=== PATIENT | male | born 1960 | race Caucasian/White ===

== ENCOUNTER 2021-06-05 13:40 | Outpatient (RCR) | payer OTHER, SELFPAY ==
--- NOTE | 2021-04-27 14:34 | PCPTNOTE ---
Patient did not show up for his initial evaluation today. Therapist called the patient to follow up and he rescheduled his initial visit.
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
--- NOTE | 2021-06-09 11:11 | PCPTNOTE ---
Patient did not show up for scheduled appointment this date. Called and spoke with Pt about missed appointment. Pt apologized for not calling, he has a lot going on at home with helping care for his mother, who had a procedure to move her port. Reassured Pt and spoke with him about next appointment and rescheduling. Pt opted to not reschedule due to having so much going on, and will be here for next appointment on 06/17/21 @ 15:15. This is Pt's first N/S.
--- NOTE | 2021-06-17 15:39 | PCPTNOTE ---
Patient did not show up for scheduled appointment this date. Called and spoke with Pt. Pt stated Tuesday, Tuesday, and Tuesday's do not work due to having to take my mo to dialysis those days. I need to change next weeks appointment as well. Changed appointment Saturday 06/24 @15:15 to Tuesday06/23/21 @14:45. This is Pt's second N/S.
--- NOTE | 2021-06-23 16:17 | PCPTNOTE ---
Patient did not show up for scheduled appointment this date. Called patient, & left a message for him to call us back.
--- NOTE | 2021-07-01 14:48 | PCPTNOTE ---
Attending Provider: Ivon Thacker, SCRUBBER SYSTEM ATTENDANT-C Patient:Jann Albarran Date of :1960 Jann has not shown up for 4 consecutive visits. Patient has not returned for any further treatments since 06/05/2021, therefore he will be discharged at this time. Patient?s initial visit was on 06/05/2021 13:45 and he had a total of 1 visits. Thank you for referring this patient to [facility]. Please review, sign, date and return this discharge summary YENI. I have been updated about the patient's current status and I agree with discharge from the above service at this time. Referring Physician Date
== END 2021-07-02 08:12 | disposition home or self-care (01) ==
LOC: ANHPT 13:40
PROVIDERS: PCP Internal Medicine; Visit Provider Nurse Practitioner
DX: M54.2 Cervicalgia (principal)
CPT/HCPCS: 97112; 97161

== ENCOUNTER 2021-07-28 14:49 | Outpatient (CLI) | payer OTHER, SELFPAY ==
--- NOTE | ~2021-07-28 | CT_ITS ---
EXAMINATION: CT cervical spine wo con DATE: 07/28/2021 15:09 INDICATION: Right-sided neck pain. TECHNIQUE: Computed tomography (CT) of the cervical spine was performed without intravenous contrast. Automated exposure control and iterative reconstruction technique were employed. The dose-length pro duct was 491.91 mGy-cm. COMPARISON: None FINDINGS: There is 5 degrees levocurvature of lumbar spine. There is 2 mm anterolisthesis of C2 on C3 and 2 mm retrolisthesis of C3 on C4 and C4 on C5. There is kyphosis of upper cervical spine. Vertebr al body heights are normal. There is severely decreased disc height at C3-C4 and C4-C5, mildly decrea sed disc height at C5-C6, and severely decreased disc height at C6-C7 with endplate remodeling. The f ollowing disc levels are specifically discussed: C2-C3: There is mild bilateral uncovertebral joint osteoarthritis. There is severe right and mild lef t facet joint osteoarthritis. There is mild bilateral neural foraminal stenosis. There is mild centra l canal stenosis. C3-C4: There is severe bilateral uncovertebral joint osteoarthritis. There is moderate right and mild left facet joint osteoarthritis. There is moderate bilateral neural foraminal stenosis. There is mil d central canal stenosis. C4-C5: There is severe bilateral uncovertebral joint osteoarthritis. There is moderate right and mild left facet joint osteoarthritis. There is moderate bilateral neural foraminal stenosis. There is mil d central canal stenosis. C5-C6: There is mild bilateral uncovertebral joint osteoarthritis. There is mild bilateral facet join t osteoarthritis. There is no neural foraminal stenosis. There is mild central canal stenosis. C6-C7: There is severe bilateral uncovertebral joint osteoarthritis. There is moderate right and mild left facet joint osteoarthritis. There is mild bilateral neural foraminal stenosis. There is mild ce ntral canal stenosis. C7-T1: There is severe bilateral uncovertebral joint osteoarthritis. There is mild bilateral facet emory int osteoarthritis. There is mild right and moderate left neural foraminal stenosis. There is no cent ral canal stenosis. IMPRESSION: 1. Severe cervical spondylosis. Reviewed, dictated and finalized at location B.
== END 2021-07-28 14:50 | disposition home or self-care (01) ==
LOC: ANHIMG 14:53
PROVIDERS: PCP Internal Medicine; Visit Provider Internal Medicine
DX: R51.9 Headache, unspecified (principal); M47.813 Spondylosis without myelopathy or radiculopathy, cervicothoracic region; M48.03 Spinal stenosis, cervicothoracic region
CPT/HCPCS: 72125

== ENCOUNTER 2022-10-19 09:57 | Outpatient (CLI) | payer OTHER, SELFPAY ==
--- NOTE | ~2022-10-19 | US_ITS ---
Limited Abdominal Sonogram: Real-time sonographic imaging of the right upper quadrant was performed. Clinical History: Abnormal blood chemistry findings Findings: The liver appears normal with no evidence of mass lesion or bile duct dilatation. Main por carlos vein demonstrates normal direction of flow. The gallbladder is partially distended, with multiple probable small gallbladder wall polyps. The common bile duct measures 3 mm. The visualized pancreas , aorta, and IVC are unremarkable. Impression: Multiple probable small gallbladder wall polyps. Reviewed, dictated and finalized at location . Impression: Multiple probable small gallbladder wall polyps.
== END 2022-10-19 09:58 | disposition home or self-care (01) ==
PROVIDERS: PCP Family Medicine; Visit Provider Family Medicine
DX: R79.89 Other specified abnormal findings of blood chemistry (principal); K70.9 Alcoholic liver disease, unspecified
CPT/HCPCS: 76705

== ENCOUNTER 2023-05-06 19:25 | Inpatient (IN) | payer OTHER, SELFPAY ==
--- NOTE | ~2023-05-06 | CT_ITS ---
EXAMINATION: CT chest abdomen pelvis w con DATE: 05/06/2023 20:51 INDICATION: Right pleural effusion. TECHNIQUE: Computed tomography (CT) of the chest, abdomen, and pelvis was performed with 100 mL Omnip aque 350 intravenous contrast. Automated exposure control and iterative reconstruction technique were employed. The dose-length product was 620.70 mGy-cm. COMPARISON: CT abdomen 11/06/2006 FINDINGS: CHEST CT: There is a moderate-sized right pleural effusion. Calcified right lung nodules and calcified right hi lar lymph nodes are consistent with old granulomatous disease. There is passive atelectasis involving right middle lobe and right lower lobe. There is mild atelectasis on the left. The heart size is nor mal. There are coronary artery calcifications. No pericardial effusion. There is mild thoracic spondy losis. There is a chronic compression fracture of T3. ABDOMEN/PELVIS CT: There is elevation of right hemidiaphragm. The liver, gallbladder, spleen, pancreas, adrenal glands, and kidneys are normal. There are inguinal hernias containing fat, left worse than right. There are n o dilated loops of bowel. The appendix is normal. There are no pathologically enlarged lymph nodes. T here is no free intraperitoneal fluid. There is mild lumbar spondylosis. IMPRESSION: 1. Moderate-sized right pleural effusion. 2. Bilateral inguinal hernias containing fat. Reviewed, dictated and finalized at location E. TIATOR SALES
--- NOTE | ~2023-05-06 | XR_ITS ---
EXAMINATION: XR chest 1V portable DATE: 05/06/2023 20:00 INDICATION: Chest pain. TECHNIQUE: A single frontal view of the chest was obtained. COMPARISON: Chest 2 views 12/03/2010, chest CT 11/06/2006 FINDINGS: There is elevation of right hemidiaphragm. There is a small right pleural effusion. There a re airspace opacities at right lung base. No pneumothorax. The heart size is normal. There are old he aled left rib fractures. IMPRESSION: 1. Small right pleural effusion. 2. Airspace opacities at right lung base, consistent with atelectasis/scarring versus pneumonia. Reviewed, dictated and finalized at location E. CE MANAGER
--- NOTE | ~2023-05-06 | XR_ITS ---
. EXAMINATION: [id number] DATE: 05/09/2023 12:33 INDICATION: Right pleural effusion status post thoracentesis. TECHNIQUE: A single frontal view of the chest was obtained. COMPARISON: Chest single view 05/06/2023, chest 2 views 12/03/2010 FINDINGS: There is elevation of right hemidiaphragm. There is a moderate-sized loculated right pleura l effusion. There are airspace opacities at right lung base. No pneumothorax. The heart size is sanjay l. IMPRESSION: 1. Moderate-sized loculated right pleural effusion. 2. Airspace opacities at right lung base, consistent with atelectasis versus pneumonia. Reviewed, dictated and finalized at location A. CUTE NURSE IMPRESSION: 1. Moderate-sized loculated right pleural effusion. 2. Airspace opacities at right lung base, consistent with atelectasis versus pn eumonia.
--- NOTE | ~2023-05-06 | US_ITS ---
EXAMINATION: US thoracentesis DATE: 05/09/2023 13:06 INDICATION: pleural effusion TECHNIQUE: The procedure and its risks, benefits, and alternatives were discussed with the patient. P otential risks discussed included bleeding, infection, and pneumothorax. The patient understood the r isks and agreed to proceed. The skin was prepped and draped in sterile fashion. 1% lidocaine was used for local anesthesia. Under ultrasound guidance, a 5 Fr catheter with trochar was advanced into the right pleural effusion. Fluid was aspirated. The catheter was removed, and a dressing was applied. Th ere were no immediate complications. FINDINGS: Ultrasound images demonstrate a right pleural effusion and the catheter within the fluid. IMPRESSION: 1. Successful ultrasound-guided thoracentesis yielding 550 mL of yellow fluid. Reviewed, dictated and finalized at location A. OR MANUFACTURING ENGINEER
--- NOTE | ~2023-05-06 | US_ITS ---
EXAMINATION: US abdomen complete DATE: 05/09/2023 13:03 INDICATION: Cirrhosis of the liver. TECHNIQUE: Multiple grayscale and Doppler ultrasound images of the abdomen were obtained. COMPARISON: CT abdomen and pelvis 05/06/2023 FINDINGS: The visualized portions of the head and body of the pancreas are normal. The liver demonstr ates coarsened echotexture and surface nodularity, consistent with cirrhosis. There is normal flow in main portal vein. The kidneys are normal in size. The spleen is normal in size. The gallbladder is n ormal in size. No gallstones or gallbladder wall thickening. There is no sonographic Galvin sign. The common duct is normal and measures 5 mm. IMPRESSION: 1. Cirrhosis of the liver. Reviewed, dictated and finalized at location A. N INSPECTOR IMPRESSION: 1. Cirrhosis of the liver.
--- NOTE | 2023-05-06 19:26 | ECG_ITS ---
Measurements Intervals [place] Rate: 130 P: 49 TX: 154 QRS: -52 QRSD: 93 T: 30 QT: 301 QTc: 444 Interpretive Statements SINUS TACHYCARDIA PATTERN CONSISTENT WITH PULMONARY DISEASE LEFT ANTERIOR FASCICULAR BLOCK [QRS AXIS <= -45, QR IN I, RS IN II] BORDERLINE ECG NO PREVIOUS ECG AVAILABLE FOR COMPARISON Electronically Signed On 05-07-2023 14:38:00 TRACK BROOM OPERATOR by Al Knutson M.D.
[2023-05-06 19:31] VITALS: BP 124/76; PULSE 132; RESP 16; TEMP 36.6; O2SAT 92
[2023-05-06 19:51] VITALS: O2SAT 94
[2023-05-06 19:57] VITALS: O2SAT 94
[2023-05-06 19:58] LABS: Basophils Absolute Auto 0.1 K/mm3 (0.0-0.1); Basophils Percent Auto 0.3 % (0.2-1.2); Hematocrit 42.9 % (42.0-52.0); Hemoglobin 14.9 g/dL (14.0-18.0); Immature Granulocyte Absolute 0.63 K/mm3 (0.00-0.031); Immature Granulocyte Percent A 1.5 % (0-0.5); Lymphocytes Absolute Auto 1.96 K/mm3 (0.9-3.2); Lymphocytes Percent Auto 4.6 % (18.3-44.2); Mean Corpuscular HGB Conc 34.7 g/dl (32-36); Mean Corpuscular Hemoglobin 32.4 pg (26-34); Mean Corpuscular Volume 93.3 fl (80-100); Mean Platelet Volume 9.9 fl (7.4-10.4); Monocytes Absolute Auto 2.8 K/mm3 (0.1-0.6); Monocytes Percent Auto 6.5 % (2.6-8.5); Neutrophils Percent Auto 87.1 % (45.5-73.1); Platelet Count Result 253 k/mm3 (150-375); Red Cell Distribution Width 12.6 % (11.5-14.5); White Blood Count 42.5 K/mm3 (4.5-10.0)
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
[2023-05-06 20:07] LABS: Alanine Aminotransferase 72 U/L (6-50); Albumin Level 3.7 g/dL (3.5-5.1); Alkaline Phosphatase 104 U/L (38-126); Anion Gap 7 mmol/L (8-16); Aspartate Amino Transferase 66 U/L (17-59); Bilirubin,Total 2.6 mg/dL (0.2-1.3); Blood Urea Nitrogen 18 mg/dL (9-20); Calcium 9.1 mg/dL (8.4-10.2); Carbon Dioxide 25 mmol/L (22-30); Chloride 96 mmol/L (98-107); Estimated CRCL calculation 95 ml/min; Estimated Glomerular Filt Rate > 60; Glucose 235 mg/dL (65-110); Lipase 27 U/L (23-300); Potassium 4.3 mmol/L (3.4-5.0); Sodium 128 mmol/L (137-145)
[2023-05-06 20:10] LABS: INR 1.3; Prothrombin Time 16.6 Seconds (11.1-14.7)
[2023-05-06 20:11] LABS: Partial Thromboplastin Time 31.8 SECONDS (22.3-36.8)
[2023-05-06 20:19] LABS: Troponin I < 0.012 ng/mL (0.000-0.034)
[2023-05-06] MEDS: HYDROmorphone HCL INJ (*CRX) 1 MG/ML SYR 0.5 MG IV PUSH (20:24)
[2023-05-06] MEDS: ONDANSETRON INJ 4 MG/2 ML VIAL IV PUSH (20:24)
--- NOTE | 2023-05-06 20:38 | PC.NURSE ---
EDP Dr. Ogden verbalized pt does not need ordered dose of ASA.
[2023-05-06 20:47] LABS: CRP 5.9 mg/dL (<1.0)
[2023-05-06 20:56] LABS: Lactic Acid Reflex 2.3 mmol/L (0.7-2.0)
[2023-05-06 21:01] LABS: Alveolar/Arterial O2 Gradient 53.1 mmHg; Fractional Inspired Oxygen 21 %; HCO3 ABG 25.1 mEq/l (22.0-26.0); Oxygen Content ABG 18.4 %vol (16.0-22.0); Oxygen Saturation ABG 90.6 % (95.0-100.0); Oxyhemoglobin 87.9 % THb (90.0-100.0); PO2 ABG 54.7 mmHg (80.0-100.0); Total Hemoglobin 14.9 g/dL (12.0-18.0); pH ABG 7.474 (7.350-7.450)
[2023-05-06 21:02] LABS: Modified Allen's Test Pass; Site Drawn RIGHT RADIAL
[2023-05-06 21:15] VITALS: BP 110/91; PULSE 132; RESP 26; O2SAT 93
[2023-05-06 21:22] LABS: Influenza A QL RT-PCR Negative (Negative); Influenza B QL RT-PCR Negative (Negative); RSV RNA, RT-PCR Negative (Negative); SARS-CoV-2 RNA PCR Negative (Negative)
[2023-05-06] MEDS: AZITHROMYCIN 500 MG/NS 250 ML 500 MG/250 ML BAG 250 MG IVPB (21:53)
[2023-05-06 21:55] VITALS: BP 122/83; PULSE 127; RESP 23; O2SAT 92
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
[2023-05-06 23:06] LABS: Troponin I 0.016 ng/mL (0.000-0.034)
[2023-05-06] MEDS: SODIUM CHLORIDE 0.9% IV 1,000 ML 150 ML IV CONT (23:14)
[2023-05-06] MEDS: HYDROmorphone HCL INJ (*CRX) 1 MG/ML SYR IV PUSH (23:15)
--- NOTE | 2023-05-06 23:28 | PC.NURSE ---
Pt moved from stretcher to recliner at this time. Pt has remote within reach.
[2023-05-06 23:42] LABS: Reflex Lactic Acid Yes or No Add Lactic
[2023-05-06 23:59] VITALS: BP 112/67; PULSE 114; RESP 16; O2SAT 96
[2023-05-07] VITALS (21 sets, daily range): BP systolic 101–128; BP diastolic 51–78; PULSE 92–118; RESP 18–27; TEMP 37–37.2; O2SAT 88–98; BMI 25.9
[2023-05-07 01:26] LABS: Lactic Acid 1.5 mmol/L (0.7-2.0)
[2023-05-07 01:39] LABS: Troponin I < 0.012 ng/mL (0.000-0.034)
[2023-05-07] MEDS: HYDROmorphone HCL INJ (*CRX) 1 MG/ML SYR IV PUSH ×2 (04:29→10:48)
--- NOTE | 2023-05-07 04:51 | PC.NURSE ---
Pt placed on 2L NC by this RN due to desats while sleeping. Pt tolerating 2L well - satting 97%.
[2023-05-07] MEDS: SODIUM CHLORIDE 0.9% IV 1,000 ML 150 ML IV CONT ×2 (05:54→14:30)
--- NOTE | 2023-05-07 07:10 | PC.NURSE ---
Report given to CHUN Medrano at this time.
--- NOTE | 2023-05-07 08:02 | ADMGEN ---
This patient, Jann Albarran, was admitted to Virtual Bed 3rd Floor-1. Patient/family oriented to hospital policies and general routines including ID bracelet, bed and alarms, visiting hours, pain management, procedures, bathroom and other care routines, personal items, smoking policy, room service/diet, and visiting hours. Information on how to activate the Rapid Response Team has been discussed. Patient/Family are encouraged to report perceived risks to care and to ask questions if they do not understand what they are told or what they should do. patient in ED, will be transferred to floor soon.
[2023-05-07 16:40] LABS: Basophils Absolute Auto 0.1 K/mm3 (0.0-0.1); Basophils Percent Auto 0.3 % (0.2-1.2); Hematocrit 38.8 % (42.0-52.0); Hemoglobin 13.1 g/dL (14.0-18.0); Immature Granulocyte Percent A 2.4 % (0-0.5); Lymphocytes Absolute Auto 2.71 K/mm3 (0.9-3.2); Lymphocytes Percent Auto 7.1 % (18.3-44.2); Mean Corpuscular HGB Conc 33.8 g/dl (32-36); Mean Corpuscular Hemoglobin 32.8 pg (26-34); Mean Platelet Volume 10.9 fl (7.4-10.4); Monocytes Absolute Auto 2.8 K/mm3 (0.1-0.6); Monocytes Percent Auto 7.4 % (2.6-8.5); Neutrophils Absolute Auto 31.4 K/mm3 (1.3-6.7); Neutrophils Percent Auto 82.8 % (45.5-73.1); Platelet Count Result 163 k/mm3 (150-375); Red Cell Distribution Width 12.6 % (11.5-14.5); White Blood Count 37.9 K/mm3 (4.5-10.0)
[2023-05-07] MEDS: HYDROcodone/acetaminophen (*CRX) 10-325 MG TABLET 1 TAB PO (16:44)
[2023-05-07 16:50] LABS: Alanine Aminotransferase 45 U/L (6-50); Albumin Level 3.1 g/dL (3.5-5.1); Alkaline Phosphatase 93 U/L (38-126); Anion Gap 5 mmol/L (8-16); Aspartate Amino Transferase 36 U/L (17-59); Bilirubin,Total 1.6 mg/dL (0.2-1.3); Blood Urea Nitrogen 18 mg/dL (9-20); Calcium 8.5 mg/dL (8.4-10.2); Carbon Dioxide 28 mmol/L (22-30); Chloride 96 mmol/L (98-107); Estimated CRCL calculation 95 ml/min; Estimated Glomerular Filt Rate > 60; Glucose 145 mg/dL (65-110); Sodium 129 mmol/L (137-145)
--- NOTE | 2023-05-07 17:07 | PM.IMPN ---
Progress Note: A&P Assessment and Plan (1) Hyponatremia: Code(s): E87.1 - Hypo-osmolality and hyponatremia Status: Acute (2) Alcohol dependence: Code(s): F10.20 - Alcohol dependence, uncomplicated Status: Acute (3) Marijuana abuse: Code(s): F12.10 - Cannabis abuse, uncomplicated Status: Acute (4) Pleural effusion on right: Code(s): J90 - Pleural effusion, not elsewhere classified Status: Acute (5) Pneumonia: Code(s): J18.9 - Pneumonia, unspecified organism Status: Acute (6) Acute hypoxic respiratory failure: Code(s): J96.01 - Acute respiratory failure with hypoxia Status: Acute (7) Sepsis: Code(s): A41.9 - Sepsis, unspecified organism Status: Acute (8) Elevated LFTs: Code(s): R79.89 - Other specified abnormal findings of blood chemistry Status: Acute (9) Chronic pain: Code(s): G89.29 - Other chronic pain Status: Acute (10) Continuous use of opioids: Code(s): F11.90 - Opioid use, unspecified, uncomplicated Status: Acute Plan This is a pleasant 62-year-old male with a history of alcohol abuse, marijuana abuse, alcoholic liver disease chronic pain with chronic narcotic use who presents with shortness of breath and right-sided pleuritic pain. The patient has developed a cough and right-sided chest pain for about a week. Day he was doing some heavy yard work and after throwing a log he had worsened right-sided pain. Complains of yellow sputum productions as well. Denies fever or chills denies nausea vomiting abdominal pain or diarrhea. Denies any weight loss. And [place] [facility] he was found to have leukocytosis hyponatremia lactic acidosis hyperglycemia elevated LFTs and CRP along with a moderate-size right pleural effusion. He had sinus tachycardia and was placed on 2 L of nasal cannula. #Acute hypoxic respiratory failure -wean down to 1 L nasal cannula. Treat pleural effusion. #Right-sided moderate pleural effusion -troponin negative x3. Does not appear to be in heart failure. -pleuritic chest pain likely due to pleural effusion and possible underlying pneumonia. -per nursing thoracentesis can be done on Tuesday. Studies have been ordered. Differential is wide including empyema, malignant, hepatic hydrothorax. #pneumonia -unable to specify at this time. Ceftriaxone and azithromycin changed to meropenem and vancomycin on 05/07 to cover empirically given he is an alcohol drinker -sputum culture pending. Legionella and pneumococcal urinary antigen ordered #Sepsis -white count 42 and CRP 5.9 on admission. Tachycardia and hypoxia. Continue to trend. -check UA. Blood cultures and sputum culture pending. Pleural fluid culture pending #Hyperglycemia -check hemoglobin A1c -Accu-Cheks and sliding scale. Hypoglycemia protocol #Hyponatremia -the be due to beer potomania, or SIADH. -treat lung pathology. -continue to monitor repeat BMP at midnight -check urine osmolality and sodium #Marijuana abuse -provided counseling #Alcoholic liver disease -provided extensive counseling. The patient understood and agreed he will quit alcohol. Consulted care coordination to provide resources. -his transaminitis fell due to alcoholic liver disease. PCP Dr. Guardado. Abdominal ultrasound performed 10/19/2022 demonstrating probable small gallbladder wall polyps. Will repeat another given he may have hepatic hydrothorax. If ascites is identified starting diuretics would be useful. -trend liver enzymes -continue thiamine and folate. CIWA protocol as needed. #Chronic pain with chronic narcotic use -patient reports had multiple surgeries and has chronic pain. Continue home gabapentin and [place]. Discontinued IV narcotics. FEN: Saline lock IV. Regular diet GI prophylaxis: Not indicated DVT prophylaxis: Lovenox. Hold Tuesday morning. Lines: Peripheral IV Code Status: Full code Dispo: Stable. Continue tel
[2023-05-07 17:30] LABS: Procalcitonin 1.2 ng/mL
[2023-05-07] MEDS: MEROPENEM 1 GM/NS 100 ML 1 GM/100 ML BAG IVPB (17:48)
[2023-05-07] MEDS: VANCOMYCIN 1,250 MG/NS 250 ML 1,250 MG/250 ML BAG 166.67 MG IVPB (18:27)
[2023-05-07 19:21] LABS: MRSA (PCR) NOT DETECTED (NOT DETECTE)
[2023-05-07] MEDS: VANCOMYCIN 1,000 MG/NS 250 ML 1,000 MG/250 ML BAG 250 MG IVPB (20:26)
[2023-05-07] MEDS: GABAPENTIN 300 MG CAPSULE PO (20:26)
[2023-05-07 20:47] LABS: Sodium Urine Random 18 meq/L
[2023-05-07 20:48] LABS: Bacteria Urine None Seen /hpf; Non Pathogenic Casts 0-2; RBC Urine 0-2 /hpf (0-2); Squamous Epithelial Cell Urine Occasional /hpf (Few); WBC Urine 0-5 /hpf (0-3)
[2023-05-07 21:10] LABS: Appearance Urine Clear (Clear); Bilirubin Urine 1+ (Negative); Blood Urine Negative (Negative); Glucose Urine UA Negative (Negative); Ketones Urine Negative (Negative); Leukocyte Esterase Ur Trace LEU/UL (NEGATIVE); Nitrate Urine Negative (Negative); Protein Urine Negative (Negative); Specific Grav Ur 1.024 (1.001-1.035); pH Urine 5.5 (5.0-9.0)
[2023-05-07 21:11] LABS: Add Urine Microscopic? YES; Color Urine Dark Yellow (Yellow)
[2023-05-07 21:21] LABS: Glucose Point of Care 140 mg/dl (65-105)
[2023-05-08] VITALS (10 sets, daily range): BP systolic 116–171; BP diastolic 68–83; PULSE 94–150; RESP 20–22; TEMP 36.9–37.7; O2SAT 91–96
[2023-05-08 00:17] LABS: Anion Gap 5 mmol/L (8-16); Blood Urea Nitrogen 17 mg/dL (9-20); Calcium 8.5 mg/dL (8.4-10.2); Carbon Dioxide 29 mmol/L (22-30); Chloride 95 mmol/L (98-107); Estimated CRCL calculation 109 ml/min; Estimated Glomerular Filt Rate > 60; Glucose 139 mg/dL (65-110); Potassium 3.8 mmol/L (3.4-5.0); Sodium 129 mmol/L (137-145)
[2023-05-08] MEDS: HYDROcodone/acetaminophen (*CRX) 10-325 MG TABLET 1 TAB PO ×3 (01:48→21:36)
[2023-05-08] MEDS: MEROPENEM 1 GM/NS 100 ML 1 GM/100 ML BAG IVPB ×3 (01:48→17:10)
[2023-05-08] MEDS: VANCOMYCIN 1,500 MG/NS 500 ML 1,500 MG/500 ML BAG 250 MG IVPB ×2 (05:20→18:18)
[2023-05-08 07:01] LABS: Estimated CRCL calculation 109 ml/min; Estimated Glomerular Filt Rate > 60
[2023-05-08 07:02] LABS: Hemoglobin A1C 5.9 % (<5.7)
[2023-05-08 07:25] LABS: CRP 16.1 mg/dL (<1.0)
[2023-05-08 07:31] LABS: Glucose Point of Care 148 mg/dl (65-105)
[2023-05-08] MEDS: FOLIC ACID 1 MG TABLET PO (09:47)
[2023-05-08] MEDS: THIAMINE HCL 100 MG TABLET PO (09:47)
[2023-05-08] MEDS: ENOXAPARIN 40 MG/0.4 ML SYRINGE SUB-Q (09:47)
[2023-05-08 11:11] LABS: Basophils Absolute Auto 0.1 K/mm3 (0.0-0.1); Basophils Percent Auto 0.2 % (0.2-1.2); Hematocrit 39.9 % (42.0-52.0); Hemoglobin 13.2 g/dL (14.0-18.0); Immature Granulocyte Absolute 0.32 K/mm3 (0.00-0.031); Immature Granulocyte Percent A 1.1 % (0-0.5); Mean Corpuscular HGB Conc 33.1 g/dl (32-36); Mean Corpuscular Hemoglobin 32.6 pg (26-34); Mean Corpuscular Volume 98.5 fl (80-100); Mean Platelet Volume 10.9 fl (7.4-10.4); Monocytes Absolute Auto 2.3 K/mm3 (0.1-0.6); Monocytes Percent Auto 7.5 % (2.6-8.5); Neutrophils Absolute Auto 25.2 K/mm3 (1.3-6.7); Neutrophils Percent Auto 84.2 % (45.5-73.1); Platelet Count Result 156 k/mm3 (150-375); Red Blood Count 4.05 M/mm3 (4.6-6.20); Red Cell Distribution Width 12.6 % (11.5-14.5); White Blood Count 29.9 K/mm3 (4.5-10.0)
[2023-05-08 11:24] LABS: Alanine Aminotransferase 40 U/L (6-50); Albumin Level 2.9 g/dL (3.5-5.1); Alkaline Phosphatase 123 U/L (38-126); Anion Gap 5 mmol/L (8-16); Aspartate Amino Transferase 39 U/L (17-59); Bilirubin,Total 1.3 mg/dL (0.2-1.3); Blood Urea Nitrogen 15 mg/dL (9-20); Calcium 8.6 mg/dL (8.4-10.2); Carbon Dioxide 28 mmol/L (22-30); Chloride 97 mmol/L (98-107); Estimated CRCL calculation 109 ml/min; Estimated Glomerular Filt Rate > 60; Glucose 129 mg/dL (65-110); Potassium 3.5 mmol/L (3.4-5.0); Sodium 130 mmol/L (137-145)
[2023-05-08 12:26] LABS: Glucose Point of Care 128 mg/dl (65-105)
--- NOTE | 2023-05-08 15:05 | PM.IMPN ---
Progress Note: A&P Assessment and Plan (1) Hyponatremia: Code(s): E87.1 - Hypo-osmolality and hyponatremia Status: Acute (2) Alcohol dependence: Code(s): F10.20 - Alcohol dependence, uncomplicated Status: Acute (3) Marijuana abuse: Code(s): F12.10 - Cannabis abuse, uncomplicated Status: Acute (4) Pleural effusion on right: Code(s): J90 - Pleural effusion, not elsewhere classified Status: Acute (5) Pneumonia: Code(s): J18.9 - Pneumonia, unspecified organism Status: Acute (6) Acute hypoxic respiratory failure: Code(s): J96.01 - Acute respiratory failure with hypoxia Status: Acute (7) Sepsis: Code(s): A41.9 - Sepsis, unspecified organism Status: Acute (8) Elevated LFTs: Code(s): R79.89 - Other specified abnormal findings of blood chemistry Status: Acute (9) Chronic pain: Code(s): G89.29 - Other chronic pain Status: Acute (10) Continuous use of opioids: Code(s): F11.90 - Opioid use, unspecified, uncomplicated Status: Acute Plan This is a pleasant 62-year-old male with a history of alcohol abuse, marijuana abuse, alcoholic liver disease chronic pain with chronic narcotic use who presents with shortness of breath and right-sided pleuritic pain. The patient has developed a cough and right-sided chest pain for about a week. Day he was doing some heavy yard work and after throwing a log he had worsened right-sided pain. Complains of yellow sputum productions as well. Denies fever or chills denies nausea vomiting abdominal pain or diarrhea. Denies any weight loss. In the [place] ER he was found to have leukocytosis hyponatremia lactic acidosis hyperglycemia elevated LFTs and CRP along with a moderate-size right pleural effusion. He had sinus tachycardia and was placed on 2 L of nasal cannula. #Acute hypoxic respiratory failure -weaned down to 1 L nasal cannula. Treat pleural effusion. #Right-sided moderate pleural effusion -troponin negative x3. Does not appear to be in heart failure. -pleuritic chest pain likely due to pleural effusion and possible underlying pneumonia. -per nursing thoracentesis can be done on Tuesday. Studies have been ordered. Differential is wide including empyema, malignant, hepatic hydrothorax. -NPO midnight. Hold anticoagulants #pneumonia -unable to specify at this time. Ceftriaxone and azithromycin changed to meropenem and vancomycin on 05/07 to cover empirically given he is an alcohol drinker -sputum culture pending. Legionella and pneumococcal urinary antigen ordered #Sepsis -white count 42 and CRP 5.9 and procalcitonin 1.2 on admission Tachycardia hypoxia and leukocytosis improving. CRP up to 16.1 on 05/08. Continue to trend. -UA not indicative of infection. Blood cultures and sputum culture pending. Pleural fluid culture pending #Hyperglycemia/borderline diabetes -HbA1c 5.9 on 05/08/2023. Follow-up as outpatient. Counseling provided. -Accu-Cheks and sliding scale. Hypoglycemia protocol #Hyponatremia -the be due to beer potomania, or SIADH. -treat lung pathology. -check urine osmolality and sodium Continue to monitor and trend. #Marijuana abuse -provided counseling #Alcoholic liver disease -provided extensive counseling. The patient understood and agreed he will quit alcohol. Consulted care coordination to provide resources. -his transaminitis felt likely due to alcoholic liver disease per PCP Dr. Guardado. Abdominal ultrasound performed 10/19/2022 demonstrating probable small gallbladder wall polyps. Will repeat another given he may have hepatic hydrothorax. If ascites is identified starting diuretics would be useful. -transaminitis improving. -continue thiamine and folate. CIWA protocol as needed. #Chronic pain with chronic narcotic use -patient reports had multiple surgeries and has chronic pain. Continue home gabapentin and [place]. Discontinued IV narco
[2023-05-08 16:33] LABS: Glucose Point of Care 255 mg/dl (65-105)
[2023-05-08] MEDS: INSULIN ASPART (*BKC) 100 UNITS/ML SUB-Q (17:10)
[2023-05-08] MEDS: GABAPENTIN 300 MG CAPSULE PO (21:36)
[2023-05-09] VITALS (11 sets, daily range): BP systolic 126–131; BP diastolic 65–73; PULSE 88–131; RESP 18–20; TEMP 36.4–37.7; O2SAT 92–93
[2023-05-09] MEDS: MEROPENEM 1 GM/NS 100 ML 1 GM/100 ML BAG IVPB ×3 (01:07→18:58)
[2023-05-09 01:44] LABS: Glucose Point of Care 175 mg/dl (65-105)
[2023-05-09 05:37] LABS: Basophils Percent Auto 0.1 % (0.2-1.2); Hematocrit 37.4 % (42.0-52.0); Hemoglobin 12.5 g/dL (14.0-18.0); Immature Granulocyte Absolute 0.09 K/mm3 (0.00-0.031); Immature Granulocyte Percent A 0.4 % (0-0.5); Lymphocytes Absolute Auto 1.82 K/mm3 (0.9-3.2); Lymphocytes Percent Auto 8.5 % (18.3-44.2); Mean Corpuscular HGB Conc 33.4 g/dl (32-36); Mean Corpuscular Hemoglobin 32.4 pg (26-34); Mean Corpuscular Volume 96.9 fl (80-100); Mean Platelet Volume 9.8 fl (7.4-10.4); Monocytes Absolute Auto 2.3 K/mm3 (0.1-0.6); Monocytes Percent Auto 10.7 % (2.6-8.5); Neutrophils Absolute Auto 17.2 K/mm3 (1.3-6.7); Neutrophils Percent Auto 80.3 % (45.5-73.1); Platelet Count Result 175 k/mm3 (150-375); Red Blood Count 3.86 M/mm3 (4.6-6.20); Red Cell Distribution Width 12.2 % (11.5-14.5); White Blood Count 21.4 K/mm3 (4.5-10.0)
[2023-05-09] MEDS: HYDROcodone/acetaminophen (*CRX) 10-325 MG TABLET 1 TAB PO ×2 (05:40→22:20)
[2023-05-09 05:57] LABS: Anion Gap 5 mmol/L (8-16); Blood Urea Nitrogen 16 mg/dL (9-20); CRP 8.7 mg/dL (<1.0); Calcium 8.2 mg/dL (8.4-10.2); Carbon Dioxide 26 mmol/L (22-30); Chloride 99 mmol/L (98-107); Estimated CRCL calculation 129 ml/min; Estimated Glomerular Filt Rate > 60; Glucose 140 mg/dL (65-110); Potassium 3.4 mmol/L (3.4-5.0); Sodium 130 mmol/L (137-145)
[2023-05-09 06:04] LABS: Vancomycin Trough 7.6 ug/mL (10.0-20.0)
[2023-05-09] MEDS: VANCOMYCIN 2,000 MG/NS 500 ML 2,000 MG/500 ML BAG 250 MG IVPB ×3 (07:05→22:20)
[2023-05-09 07:33] LABS: Glucose Point of Care 131 mg/dl (65-105)
[2023-05-09 11:23] LABS: Glucose Point of Care 123 mg/dl (65-105)
--- NOTE | 2023-05-09 13:05 | PM.IMPN ---
Progress Note: A&P Assessment and Plan (1) Hyponatremia: Code(s): E87.1 - Hypo-osmolality and hyponatremia Status: Acute (2) Alcohol dependence: Code(s): F10.20 - Alcohol dependence, uncomplicated Status: Acute (3) Marijuana abuse: Code(s): F12.10 - Cannabis abuse, uncomplicated Status: Acute (4) Pleural effusion on right: Code(s): J90 - Pleural effusion, not elsewhere classified Status: Acute (5) Pneumonia: Code(s): J18.9 - Pneumonia, unspecified organism Status: Acute (6) Acute hypoxic respiratory failure: Code(s): J96.01 - Acute respiratory failure with hypoxia Status: Acute (7) Sepsis: Code(s): A41.9 - Sepsis, unspecified organism Status: Acute (8) Elevated LFTs: Code(s): R79.89 - Other specified abnormal findings of blood chemistry Status: Acute (9) Chronic pain: Code(s): G89.29 - Other chronic pain Status: Acute (10) Continuous use of opioids: Code(s): F11.90 - Opioid use, unspecified, uncomplicated Status: Acute Plan This is a pleasant 62-year-old male with a history of alcohol abuse, marijuana abuse, alcoholic liver disease chronic pain with chronic narcotic use who presents with shortness of breath and right-sided pleuritic pain. The patient has developed a cough and right-sided chest pain for about a week. Day he was doing some heavy yard work and after throwing a log he had worsened right-sided pain. Complains of yellow sputum productions as well. Denies fever or chills denies nausea vomiting abdominal pain or diarrhea. Denies any weight loss. In [place] [facility] he was found to have leukocytosis hyponatremia lactic acidosis hyperglycemia elevated LFTs and CRP along with a moderate-size right pleural effusion. He had sinus tachycardia and was placed on 2 L of nasal cannula. #Acute hypoxic respiratory failure -weaned down to 1 L nasal cannula. Reassess status post thoracentesis. #Right-sided pleural effusion -troponin negative x3. Does not appear to be in heart failure. -pleuritic chest pain likely due to pleural effusion and possible underlying pneumonia especially considering his leukocytosis. -thoracentesis today on 05/09. Follow-up studies. Differential is wide including empyema, malignant, hepatic hydrothorax, CHF related. #pneumonia -unable to specify at this time. Ceftriaxone and azithromycin changed to meropenem and vancomycin on 05/07 to cover empirically given he is an alcohol drinker -follow-up sputum culture and pleural fluid culture. Legionella and pneumococcal urinary antigen ordered #Sepsis -white count 42 and CRP 5.9 and procalcitonin 1.2 on admission. CRP up to 16.1 on 05/08 but again downtrending to 8.7 on 05/09. -UA not indicative of infection. Blood cultures and sputum culture pending. Pleural fluid culture pending -improving #Hyperglycemia/borderline diabetes -HbA1c 5.9 on 05/08/2023. Follow-up as outpatient. Counseling provided. -Accu-Cheks and sliding scale. Hypoglycemia protocol #Hyponatremia -the be due to beer potomania, or SIADH. -treat lung pathology. -check urine osmolality and sodium Continue to monitor and trend. #Marijuana abuse -provided counseling #Alcoholic liver disease -provided extensive counseling. The patient understood and agreed he will quit alcohol. Consulted care coordination to provide resources. -his transaminitis felt likely due to alcoholic liver disease per PCP Dr. Guardado. Abdominal ultrasound performed 10/19/2022 demonstrating probable small gallbladder wall polyps. Will repeat another given he may have hepatic hydrothorax. If ascites is identified starting diuretics would be useful. -transaminitis improving. -continue thiamine and folate. CIWA protocol as needed. #Chronic pain with chronic narcotic use -patient reports had multiple surgeries and has chronic pain. Continue home gabapentin and [place]. Discontinued IV narcoti
[2023-05-09 13:26] LABS: pH Pleural Fluid < 7.000 (7.210-7.500)
[2023-05-09 15:16] LABS: Appearance Pleural Fluid Hazy (Clear); Color Pleural Fluid Yellow (Colorless); Pleural fluid source Pleural fluid
[2023-05-09 15:17] LABS: Lymphocytes Pleural Fluid 2 %; Neutrophils Pleural Fluid 92 % (0-25)
[2023-05-09 15:18] LABS: Monocytes Pleural Fluid 6 %
[2023-05-09 16:21] LABS: Glucose Point of Care 144 mg/dl (65-105)
--- NOTE | 2023-05-09 18:39 | PC.NURSE ---
Pt had thorcentesis today. Pt had 550mL removed. Pt reports feeling more comfortable after procedure. Pt was restarted on heart healthy diet. Pt continuing antibiotic therapy. Pt has been monitored for any changes in status and will continue to be monitored. Pt participates and contributes in plan of care. Pt had new IV placed due to infiltration.
[2023-05-09 20:48] LABS: Glucose Point of Care 172 mg/dl (65-105)
[2023-05-09] MEDS: GABAPENTIN 300 MG CAPSULE PO (20:52)
[2023-05-10] VITALS (10 sets, daily range): BP systolic 125–140; BP diastolic 68–76; PULSE 81–91; RESP 16–18; TEMP 36.8–37.5; O2SAT 88–94
[2023-05-10] MEDS: MEROPENEM 1 GM/NS 100 ML 1 GM/100 ML BAG IVPB ×2 (02:20→10:57)
[2023-05-10] MEDS: HYDROcodone/acetaminophen (*CRX) 10-325 MG TABLET 1 TAB PO ×2 (05:56→20:03)
[2023-05-10 06:15] LABS: Basophils Percent Auto 0.2 % (0.2-1.2); Eosinophils Absolute Auto 0.1 K/mm3 (0-0.3); Eosinophils Percent Auto 0.7 % (0-4.4); Hematocrit 37.8 % (42.0-52.0); Hemoglobin 12.5 g/dL (14.0-18.0); Immature Granulocyte Absolute 0.09 K/mm3 (0.00-0.031); Immature Granulocyte Percent A 0.5 % (0-0.5); Lymphocytes Percent Auto 13.7 % (18.3-44.2); Mean Corpuscular HGB Conc 33.1 g/dl (32-36); Mean Corpuscular Hemoglobin 31.8 pg (26-34); Mean Corpuscular Volume 96.2 fl (80-100); Mean Platelet Volume 9.7 fl (7.4-10.4); Monocytes Absolute Auto 2.2 K/mm3 (0.1-0.6); Monocytes Percent Auto 12.9 % (2.6-8.5); Neutrophils Absolute Auto 12.1 K/mm3 (1.3-6.7); Platelet Count Result 185 k/mm3 (150-375); Red Blood Count 3.93 M/mm3 (4.6-6.20); Red Cell Distribution Width 12.4 % (11.5-14.5); White Blood Count 16.8 K/mm3 (4.5-10.0)
[2023-05-10 06:26] LABS: Alanine Aminotransferase 29 U/L (6-50); Albumin Level 2.5 g/dL (3.5-5.1); Alkaline Phosphatase 97 U/L (38-126); Anion Gap 1 mmol/L (8-16); Aspartate Amino Transferase 38 U/L (17-59); Bilirubin,Total 0.8 mg/dL (0.2-1.3); Blood Urea Nitrogen 17 mg/dL (9-20); Carbon Dioxide 32 mmol/L (22-30); Chloride 98 mmol/L (98-107); Estimated CRCL calculation 129 ml/min; Estimated Glomerular Filt Rate > 60; Glucose 141 mg/dL (65-110); Potassium 3.2 mmol/L (3.4-5.0); Sodium 131 mmol/L (137-145)
[2023-05-10 06:33] LABS: Vancomycin Trough 15.2 ug/mL (10.0-20.0)
[2023-05-10] MEDS: VANCOMYCIN 2,000 MG/NS 500 ML 2,000 MG/500 ML BAG 250 MG IVPB ×2 (07:35→16:08)
[2023-05-10 07:56] LABS: Glucose Point of Care 130 mg/dl (65-105)
[2023-05-10] MEDS: FOLIC ACID 1 MG TABLET PO (08:47)
[2023-05-10] MEDS: THIAMINE HCL 100 MG TABLET PO (08:47)
[2023-05-10 11:47] LABS: Glucose Point of Care 209 mg/dl (65-105)
[2023-05-10] MEDS: INSULIN ASPART (*BKC) 100 UNITS/ML SUB-Q (11:53)
--- NOTE | 2023-05-10 12:33 | PCCCNOTE ---
On 05/10/23, the student, [Benita Michael ], provided care and completed [facility] documentation on this patient. I have reviewed the student's documentation and agree with the findings.
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
--- NOTE | 2023-05-10 16:53 | PM.IMPN ---
Progress Note: A&P Assessment and Plan (1) Hyponatremia: Code(s): E87.1 - Hypo-osmolality and hyponatremia Status: Acute (2) Alcohol dependence: Code(s): F10.20 - Alcohol dependence, uncomplicated Status: Acute (3) Marijuana abuse: Code(s): F12.10 - Cannabis abuse, uncomplicated Status: Acute (4) Pleural effusion on right: Code(s): J90 - Pleural effusion, not elsewhere classified Status: Acute (5) Pneumonia: Code(s): J18.9 - Pneumonia, unspecified organism Status: Acute (6) Acute hypoxic respiratory failure: Code(s): J96.01 - Acute respiratory failure with hypoxia Status: Acute (7) Sepsis: Code(s): A41.9 - Sepsis, unspecified organism Status: Acute (8) Elevated LFTs: Code(s): R79.89 - Other specified abnormal findings of blood chemistry Status: Acute (9) Chronic pain: Code(s): G89.29 - Other chronic pain Status: Acute (10) Continuous use of opioids: Code(s): F11.90 - Opioid use, unspecified, uncomplicated Status: Acute Plan This is a pleasant 62-year-old male with a history of alcohol abuse, marijuana abuse, alcoholic liver disease chronic pain with chronic narcotic use who presents with shortness of breath and right-sided pleuritic pain. The patient has developed a cough and right-sided chest pain for about a week. Day he was doing some heavy yard work and after throwing a log he had worsened right-sided pain. Complains of yellow sputum productions as well. Denies fever or chills denies nausea vomiting abdominal pain or diarrhea. Denies any weight loss. In [place] [facility] he was found to have leukocytosis hyponatremia lactic acidosis hyperglycemia elevated LFTs and CRP along with a moderate-size right pleural effusion. He had sinus tachycardia and was placed on 2 L of nasal cannula. #Acute hypoxic respiratory failure -continue to wean as tolerated. Pending CT surgery procedure. #Right-sided pleural effusion -troponin negative x3. Does not appear to be in heart failure. -status post thoracentesis on 05/09 yielding 550 mL of yellow fluid. Preliminary studies demonstrating less than 7.0 pH along with 92% neutrophils. This is likely a empyema. Pulmonology recommendations greatly appreciated. Sputum culture so far negative. Blood cultures and pleural fluid culture pending. -status post thoracentesis x-ray demonstrating loculated pleural effusion. The patient has been graciously accepted by Dr. Marcelino cardiothoracic surgeon at [place]. Awaiting bed availability for transfer. -MRSA screen negative. Antibiotics have been de-escalated for meropenem and vancomycin to ceftriaxone 2 g daily and IV Flagyl 500 mg t.i.d.. #Sepsis -white count peaked at 42,000 and CRP peaked at 16. Procalcitonin 1.2 on admission. Continue trend as needed. -Blood cultures and sputum culture pending. Pleural fluid culture pending -improving #Hyperglycemia/borderline diabetes -HbA1c 5.9 on 05/08/2023. Follow-up as outpatient. Counseling provided. -Accu-Cheks and sliding scale. Hypoglycemia protocol #Hyponatremia -the be due to beer potomania, or SIADH. -treat lung pathology. -check urine osmolality and sodium -Continue to monitor and trend. #Marijuana abuse -provided counseling #Alcoholic liver disease -provided extensive counseling. The son Luigi was in the room on 2nd count of counseling. The patient understood and agreed he will quit alcohol. Consulted care coordination to provide resources. -his transaminitis felt likely due to alcoholic liver disease per PCP Dr. Guardado. Abdominal ultrasound performed 10/19/2022 demonstrating probable small gallbladder wall polyps. Repeat abdominal ultrasound revealing essentially the same. -transaminitis improving. -continue thiamine and folate. CIWA protocol as needed. #Chronic pain with chronic narcotic use -patient reports had multiple surgeries and has chronic pain. Rita
[2023-05-10 17:09] LABS: Glucose Point of Care 179 mg/dl (65-105)
[2023-05-10] MEDS: POTASSIUM CHLORIDE 20 MEQ ER TABLET 40 MEQ PO (17:09)
--- NOTE | 2023-05-10 20:38 | PC.NURSE ---
Report called to Leyda at [facility] [id number]
[2023-05-10 20:46] LABS: Glucose Point of Care 202 mg/dl (65-105)
[2023-05-11 02:18] LABS: Legionella pneumophila Ag Ur Not Detected (Not Detected)
[2023-05-11 17:48] LABS: Pneumococcal Antigen Urine Not Detected (Not Detected)
[2023-05-11 20:13] LABS: Glucose Pleural Fluid 16 mg/dL; LDH Pleural Fluid 1564 U/L
--- NOTE | 2023-05-12 08:52 | PM.TDS ---
Transfer Discharge Sum: Prov Provider Date of admission: 05/06/23 22:00 Primary care physician: Ramon Guardado MD Admitting clinician: Majo Martinez MD Attending physician on admission: Majo Martinez Consults: 05/07/23 15:42 Care Coordination Consult Routine Comment: Reason for Consult:: Abuse 05/10/23 Consult to Physician Routine Comment: Spoke to ..24 @ 1107--ab/us Consulting Provider: Chandana Baldwin call center team leader/MD group to consult: pulmonology Reason for consultation: loculated pleural effusion R side Has provider been notified: Yes Attending physician on discharge: Radha Trevino Discharging clinician: Radha Trevino Receiving physician/facility: [facility]/ Dr. Marcelino [place] surgery DS: Admitting Diagnosis Discharge Date 05/10/23 Admitting Diagnosis shortness of breath DS: Discharge Diagnosis Discharge Diagnosis (1) Empyema: Code(s): J86.9 - Pyothorax without fistula Status: Acute (2) Alcohol dependence: Code(s): F10.20 - Alcohol dependence, uncomplicated Status: Acute (3) Chronic pain: Code(s): G89.29 - Other chronic pain Status: Acute (4) Continuous use of opioids: Code(s): F11.90 - Opioid use, unspecified, uncomplicated Status: Acute (5) Marijuana abuse: Code(s): F12.10 - Cannabis abuse, uncomplicated Status: Acute (6) Hyponatremia: Code(s): E87.1 - Hypo-osmolality and hyponatremia Status: Acute (7) Acute hypoxic respiratory failure: Code(s): J96.01 - Acute respiratory failure with hypoxia Status: Acute (8) Alcoholic liver disease: Code(s): K70.9 - Alcoholic liver disease, unspecified Status: Acute Plan This is a pleasant 62-year-old male with a history of alcohol abuse, marijuana abuse, alcoholic liver disease chronic pain with chronic narcotic use who presents with shortness of breath and right-sided pleuritic pain.? The patient has developed a cough and right-sided chest pain for about a week.? He was doing some heavy yard work and after throwing a log he had worsened right-sided pain.? Complains of yellow sputum productions as well.? Denies fever or chills denies nausea vomiting abdominal pain or diarrhea.? Denies any weight loss. In [place] ER he was found to have leukocytosis hyponatremia lactic acidosis hyperglycemia elevated LFTs and CRP along with a moderate-size right pleural effusion.? He had sinus tachycardia and was placed on 2 L of nasal cannula. On 05/10 pt transferred to [facility] with Dr. Marcelino for possible VATS. please see the following for further detail: #Acute hypoxic respiratory failure -continue to wean as tolerated.? Pending CT surgery procedure. #Right-sided pleural effusion -troponin negative x3.? Does not appear to be in heart failure. -status post thoracentesis on 05/09 yielding 550 mL of yellow fluid.? Preliminary studies demonstrating less than 7.0 pH along with 92% neutrophils.? This is likely a empyema.? Pulmonology recommendations greatly appreciated.? Sputum culture so far negative.? Blood cultures and pleural fluid culture pending. -status post thoracentesis x-ray demonstrating loculated pleural effusion.? The patient has been graciously accepted by Dr. Marcelino cardiothoracic surgeon at [facility].? Awaiting bed availability for transfer. -MRSA screen negative.? Antibiotics have been de-escalated for meropenem and vancomycin to ceftriaxone 2 g daily and IV Flagyl 500 mg t.i.d.. #Sepsis -white count peaked at 42,000 and CRP peaked at 16.? Procalcitonin 1.2 on admission.? Continue trend as needed. -Blood cultures and sputum culture pending.? Pleural fluid culture pending -improving #Hyperglycemia/borderline diabetes -HbA1c 5.9 on 05/08/2023.? Follow-up as outpatient.? Counseling provided. -Accu-Cheks and sliding scale.? Hypoglycemia protocol #Hyponatremia -the be due to beer potomania, or SIADH. -treat lung pathology. -check urine osmolal
[2023-05-12 18:36] LABS: Amylase, Pleural Fluid 21 U/L
[2023-05-13 20:54] LABS: Osmolality, Urine 764 mOsm/kg (50-1200)
[2023-05-16 00:20] LABS: Albumin Pleural Fluid 2.3 g/dL
== END 2023-05-10 22:00 | disposition short-term general hospital (02) | DRG 720 ==
LOC: ANHED 21:42 → ANH3MEDSUR 05-07 10:25
PROVIDERS: Emergency Medicine; Admitting Provider Internal Medicine; Emergency Provider Emergency Medicine; PCP Family Medicine; Visit Provider General Practice
DX: A41.9 Sepsis, unspecified organism (principal); J86.9 Pyothorax without fistula; J96.01 Acute respiratory failure with hypoxia; J90 Pleural effusion, not elsewhere classified; E87.1 Hypo-osmolality and hyponatremia; E78.5 Hyperlipidemia, unspecified; K70.9 Alcoholic liver disease, unspecified; R73.9 Hyperglycemia, unspecified; N40.0 Benign prostatic hyperplasia without lower urinary tract symptoms; M54.2 Cervicalgia; M54.6 Pain in thoracic spine; G89.29 Other chronic pain; E66.9 Obesity, unspecified; H49.21 Sixth [abducent] nerve palsy, right eye; F10.20 Alcohol dependence, uncomplicated; F12.10 Cannabis abuse, uncomplicated; Z20.822 Contact with and (suspected) exposure to COVID-19; Z87.891 Personal history of nicotine dependence; Z79.891 Long term (current) use of opiate analgesic
CPT/HCPCS: 32555; 36415; 36600; 71045; 71260; 74177; 76700; 80048; 80053; 80202; 81001; 82042; 82150; 82565; 82805; 82945; 82948; 83036; 83605; 83615; 83690; 83735; 83935; 83986; 84145; 84157; 84300; 84311; 84478; 84484; 85025; 85610; 85730; 86140; 87040; 87070; 87075; 87205; 87449; 87637; 87641; 87899; 88108; 88305; 89051; 93005; 96365; 96375; 99285; A9270; J0456; J0696; J1170; J1650; J1815; J2185; J2405; J3370; J7030; Q9967

== ENCOUNTER 2023-11-02 00:41 | Day surgery (SDC) | payer MEDICARE, MEDICAID, SELFPAY ==
[2023-10-28 15:00] VITALS: BMI 27.3
[2023-11-02 10:40] VITALS: BP 114/77; PULSE 64; RESP 16; TEMP 35.8; O2SAT 99; BMI 28.4
[2023-11-02] MEDS: LACTATED RINGERS 1,000 ML 150 ML IV CONT (10:49)
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
[2023-11-02] MEDS: BENZOCAINE (*SP) 60 ML SPRAY CAN (HURRICAINE) 1 SPRAY MUCOUS MEM (11:53)
[2023-11-02 12:05] VITALS: BP 110/72; PULSE 66; RESP 21; O2SAT 97
[2023-11-02 12:15] VITALS: BP 138/75; PULSE 60; RESP 19; O2SAT 100
[2023-11-02 12:25] VITALS: BP 137/71; PULSE 67; RESP 17; O2SAT 100
== END 2023-11-02 12:36 | disposition home or self-care (01) ==
PROVIDERS: PCP Family Medicine; Visit Provider Internal Medicine Gastroenterology
PROC: 0DJ08ZZ Inspection of Upper Intestinal Tract, Via Natural or Artificial Opening Endoscopic (ICD-10-PCS; CPT 43235; principal; 2023-11-02 11:30)
DX: K70.9 Alcoholic liver disease, unspecified (principal); E78.5 Hyperlipidemia, unspecified; N52.8 Other male erectile dysfunction; N40.0 Benign prostatic hyperplasia without lower urinary tract symptoms; G89.29 Other chronic pain; M54.6 Pain in thoracic spine; B19.20 Unspecified viral hepatitis C without hepatic coma; Z79.891 Long term (current) use of opiate analgesic; Z98.890 Other specified postprocedural states; Z87.891 Personal history of nicotine dependence; Z80.1 Family history of malignant neoplasm of trachea, bronchus and lung; Z80.8 Family history of malignant neoplasm of other organs or systems; Z82.49 Family history of ischemic heart disease and other diseases of the circulatory system
CPT/HCPCS: 43235; J2704; J7120

== ENCOUNTER 2023-12-22 11:09 | Outpatient (CLI) | payer MEDICARE, SELFPAY ==
--- NOTE | ~2023-12-22 | US_ITS ---
Right upper quadrant ABDOMINAL ULTRASOUND Ordering provider: Katarina [place] History: . Hepatic cirrhosis . Comparison: None. FINDINGS: LIVER: Normal size with coarse echogenicity.. No focal hepatic lesions or perihepatic fluid collectio ns are identified. Normal flow of the portal vein. GALLBLADDER: Unremarkable. No evidence for stones, sludge, gallbladder wall thickening or pericholecy stic fluid collections. A negative sonographic Galvin's sign was noted. BILIARY DUCTS: No evidence for intra or extrahepatic biliary dilation. Common bile duct measures 2 mm in diameter which is within normal limits. PANCREAS: Normal echotexture and size. Tail is not demonstrated. UPPER ABDOMINAL AORTA: Normal in caliber. IVC: Patent. FREE FLUID: None. IMPRESSION: Coarse echogenicity of the liver. Cirrhosis is possible. Clinical correlation and follow-up advised. Otherwise, Unremarkable right upper quadrant ultrasound of the abdomen. Reviewed, dictated and finalized at location A. IMPRESSION: Coarse echogenicity of the liver. Cirrhosis is possible. Clinical correlation a nd follow-up advised. Otherwise, Unremarkable right upper quadrant ultrasound o f the abdomen.
== END 2023-12-22 11:10 | disposition home or self-care (01) ==
LOC: ANHIMG 11:10
PROVIDERS: PCP Family Medicine
DX: K74.60 Unspecified cirrhosis of liver (principal)
CPT/HCPCS: 76705

== ENCOUNTER 2024-01-13 15:05 | Outpatient (CLI) | payer MEDICARE, SELFPAY ==
--- NOTE | ~2024-01-13 | MR_ITS ---
MRI of the left shoulder Technique: Axial proton-density fat-sat images, coronal proton density fat-sat and T2 fat-sat images, and sagittal T1-weighted and T2 fat-sat images were acquired. Clinical History: Pain, biceps tendon are Findings: There is advanced AC joint degenerative change with prominent bony productive change at the distal clavicle. Coracoclavicular, coracoacromial, and coracohumeral ligaments appear intact. There is moderate supraspinatus and infraspinatus tendinosis, without definite partial or full-thickn ess tear. Subscapularis tendon is intact, with moderate tendinosis. There is rupture of the proximal tendon of the long head of the biceps, with retraction into the bicipital groove beyond the field-of- view inferiorly. No definite labral tear seen. Inferior glenohumeral ligament is intact. No degenerative change of the glenohumeral joint. There is minimal effusion. There is mild fluid distention of the subacromial/subdeltoid bursa. No muscle atrop hy or edema evident. Impression: Complete rupture of the proximal long head biceps tendon, as detailed above. Rotator cuff tendinosis otherwise. Advanced AC joint degenerative change. Mild subacromial/subdeltoid bursitis. Reviewed, dictated and finalized at location . ON STUDY TECHNICIAN Impression: Complete rupture of the proximal long head biceps tendon, as detailed above. Rotator cuff tendinosis otherwise. Advanced AC joint degenerative change. Mild subacromial/subdeltoid bursitis.
== END 2024-01-13 15:06 | disposition home or self-care (01) ==
LOC: GOSHIMG 15:07
PROVIDERS: PCP Orthopaedic Surgery; Visit Provider Family Medicine
DX: S46.212A Strain of muscle, fascia and tendon of other parts of biceps, left arm, initial encounter (principal); X58.XXXA Exposure to other specified factors, initial encounter; M75.52 Bursitis of left shoulder
CPT/HCPCS: 73221

== ENCOUNTER 2024-07-03 12:17 | Outpatient (CLI) | payer MEDICARE, SELFPAY ==
[2024-07-03 13:01] LABS: Prothrombin Time 13.9 Seconds (11.1-14.7)
[2024-07-03 13:02] LABS: Partial Thromboplastin Time 27.4 Seconds (22.3-36.8)
[2024-07-03 13:09] LABS: Anion Gap 9 mmol/L (4-12); Blood Urea Nitrogen 25 mg/dL (9-20); Calcium 9.1 mg/dL (8.4-10.2); Carbon Dioxide 28 mmol/L (22-30); Chloride 102 mmol/L (98-107); Estimated Glomerular Filt Rate > 60; Glucose 214 mg/dL (65-110); Potassium 3.8 mmol/L (3.4-5.0); Sodium 139 mmol/L (137-145)
--- OUTSIDE RECORDS SUMMARY | 2024-07-03 13:59 | XMS_ITS | Referral Summary ---
Author Organization [facility] Address [address] [place] [address] Care Team Providers Care Conveyor Technician Name Role Phone Ramon Guardado MD Primary Care Provider [phone] Encounters Date Type Department Care Team Description 05/01/2024 Documentation [facility] Gastroenterology [address] 12th [place] [address] [place] [address] Marge Brantley LPN 04/24/2024 Orders Only [facility] Scanning, Provider 04/24/2024 Telephone [facility] Gastroenterology [address]th [place] [address] [place] [address] Marge Brantley LPN 04/23/2024 Documentation [facility] Gastroenterology [address] [place] [address] [place] [address] Marge Brantley LPN 04/19/2024 Telephone [facility] Gastroenterology [address] [facility] [address] 2nd Floor [address] [place] [address] Eneida Hilario NP 04/19/2024 8:55 AM NEWSPAPER REPORTER Lab [facility] [address] [place] [address] [address] [place] [address] Hepatic cirrhosis, unspecified hepatic cirrhosis type, unspecified whether ascites present (HCC) 04/19/2024 8:20 AM NEWSPAPER REPORTER Office Visit [facility] Gastroenterology [address] [facility] [facility] [address] 2nd Floor [address] [place] [address] Eneida Hilario, KATHRIN Hepatic cirrhosis, unspecified hepatic cirrhosis type, unspecified whether ascites present (HCC) (Primary Dx) 04/18/2024 Telephone [facility] Gastroenterology [address] [facility] 12th [place] [address] [place] [address] Fercho MargeGERARDO 04/17/2024 Telephone [facility] Gastroenterology [address] 12th [place] [address] [place] [address] Nawaf Disla, CHUN from Last 3 Months Allergies No known active allergies Medications gabapentin (NEURONTIN) 300 mg capsule Take 1 capsule (300 mg total) by mouth nightly Pt thinks this is possibly on hold Active traZODone (DESYREL) 50 mg tablet Take 1 tablet (50 mg total) by mouth nightly as needed for sleep Active thiamine (VITAMIN B1) 100 mg tablet Take 1 tablet (100 mg total) by mouth daily 30 tablet 11 05/19/2023 Active HYDROcodone-reanna taminophen (NORCO) 10-325 mg per tablet Take by mouth as needed 05/05/2023 Active meloxicam (MOBIC) 15 mg tablet Take 1 tablet (15 mg total) by mouth daily Active Active Problems Problem Noted Date Diagnosed Date Chronic hepatitis C without hepatic coma 024 Assessment & Plan (04/19/2024 8:48 AM NEWSPAPER REPORTER): Mr. 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 He is s/p 12 weeks of Epclusa. He is well compensated, normal liver synthetic function with MELD-Na = 6. Will obtain lab work to include SVR labs to confirm clearance. I have strongly encouraged sobriety. #HCC Surveillance: Last imaging was Ultrasound on 12/22/2023 which showed no liver lesion. RUQ US ordered for now given some abdominal pain (locally). #Variceal Screening: Last EGD was within the year. Results show unknown. Last colonoscopy was within the year. Results show unknown. I will obtain report from [facility] in [place]. #Labs: Patient due for lab work today: CBC, CMP, INR, AFP, HCV RNA PCR, AFP level was 4.1 on 09/05/2023. We discussed scarring of the liver due to longstanding inflammation from viral Hepatitis C and alcohol use. This scarring can lead to an increase in pressure within the blood vessels, leading to varicose type veins in the esophagus, fluid in the abdomen, and the buildup of toxins that can cause confusion. Cirrhosis increases the risk of the development of hepatocellular carcinoma. This necessitates screening for liver cancer with an abdominal ultrasound approximately every 6 months. We discussed the potential need for a liver transplant, if liver function worsened and there are no obvious contraindications. Follow up in 6 months. Assessment & Plan (09/05/2023 2:35 PM CDT): Mr. Albarran presents for follow up for cirrhosis, found to have Hepatitis C on liver disease workup, treatment naive. Lab work 07/11/2023 reveals ALT 79, AST 86, Plt 158K, HCV Ab + , HCV RNA 2,290,000. I will obtain lab work today to include HCV Genotype. Further recommendations and treatment based on Genotype. I discussed the natural history of chronic hepatitis C, including the potential for progression to cirrhosis, liver failure, development of liver cancer, need for a liver transplant, and . I discussed currently available antiviral agents, including their efficacy and adverse effects. I discussed the technique of liver biopsy and the use of liver histology to assist in the decision to use antiviral agents. I discussed risk factors for transmission, based on blood to blood contact. I recommended not sharing a toothbrush or razor blade. The risk of sexual transmission is less than 1% in a monogamous relationship. However, if there is concern, a condom should prevent transmission of the hepatitis C virus. I discussed the effect of heavy alcohol use on hepatitis C and how the disease can be accelerated. We discussed currently available antiviral therapy, including its efficacy, side effects, and cost. If there are concerns of potential treatment side effects, the patient is asked to contact my office. Pre-treatment, end of treatment and three-month follow up labs will be obtained. Currently, I see no obvious contraindications to antiviral therapy. Hypoalbuminemia 05/16/2023 Assessment & Plan (05/16/2023 11:37 AM NEWSPAPER REPORTER): - monitor - R/T hx ETOH abuse Alcohol abuse 05/11/2023 Assessment & Plan (05/11/2023 12:05 PM NEWSPAPER REPORTER): admits to 6-12 beers + some hard liquor a day - Monitor for signs of alcohol withdrawal. Pleural effusion on right 05/10/2023 Cirrhosis of liver 05/10/2023 Assessment & Plan (09/06/2023 8:26 AM CDT): Mr. Albarran presents for follow up for cirrhosis, alcohol related liver disease, found to have Chronic Hepatitis C, treatment naive on liver disease workup. He is well compensated, normal liver synthetic function with MELD-Na = 6. Patient reports he is sober, I have encouraged continued sobriety. #HCC Surveillance: Last imaging was Ultrasound on 05/16/2023 which showed hepatic fibrosis/cirrhosis. AFP lab ordered today. RUQ Ultrasound in 6 months (~October 2023) for HCC screening. #Variceal Screening: Last colonoscopy was performed at [facility] 2-3 years ago per patient. Results show unknown. Fibroscan 07/11/2023: kPa 32.1, CAP 267 suggestive of normal moderate steatosis, very high fibrosis. Baveno Criteria, kPa > 20 or Platelet count > 150K , recommend EGD for variceal surveillance. He is to get EGD/Colonoscopy scheduled at [facility]. We will obtain the reports. #Labs: Last hepatic panel: 07/11/2023: ALT 79, AST 86, Plt 158K, Lab work today to include: CBC, CMP, INR, AFP, HCV Genotype Follow up in 6 months. Assessment & Plan (07/12/2023 11:00 AM CDT): Mr. Albarran presents for evaluation of imaging findings of hepatic fibrosis/cirrhosis. US Liver with Doppler obtained 05/16/2023 which revealed Minimally coarse echotexture and mild surface nodularity, which may represent early changes of hepatic fibrosis/cirrhosis. No thrombus. Most recent lab work 05/16/2023 reveals Alk Phos 188, AST 69, ALT 49, Plt 226K. Patient has a history of daily alcohol consumption, drinking up to 10 beers per day, since 2019. I suspect this is alcohol related liver disease. Patient has been sober since ~05/07/2023, I have commended patient on his sobriety. I have offered resources and medication for alcohol use, he has deferred. He will notify me should he wish to do so. I have strongly encouraged continued sobriety, healthy lifestyle with weight loss through diet and exercise. Recommendations as follows: - Fibroscan today to evaluate degree of hepatic steatosis and fibrosis - Lab work today to evaluate liver synthetic function, viral hepatitis immune status and rule out other etiologies of hepatic fibrosis/cirrhosis, although strong suspicion for alcohol related liver disease #HCC Surveillance: Last imaging was Ultrasound on 05/16/2023 which showed hepatic fibrosis/cirrhosis. AFP lab ordered today. RUQ Ultrasound in 6 months (~October 2023) for HCC screening. #Variceal Screening: Last colonoscopy was performed at [facility] 2-3 years ago per patient. Results show unknown. Will obtain Fibroscan and lab work today. Baveno Criteria, if kPa > 20 or Platelet count > 150K , then recommend EGD for variceal surveillance. #Labs: Last hepatic panel: 05/16/2023: Tbili 0.7, Alk Phos 188, AST 69, ALT 49. We discussed scarring of the liver due to longstanding inflammation with alcohol use. This scarring can lead to an increase in pressure within the blood vessels, leading to varicose type veins in the esophagus, fluid in the abdomen, and the buildup of toxins that can cause confusion. Cirrhosis increases the risk of the development of hepatocellular carcinoma. This necessitates screening for liver cancer with an abdominal ultrasound approximately every 6 months. We discussed the potential need for a liver transplant, if liver function worsened and there are no obvious contraindications. Follow up in 6 months. Assessment & Plan (05/13/2023 10:28 AM NEWSPAPER REPORTER): - Monitor AST/ALT - has seen someone in past at [facility] and has been told that he has cirrhosis - admits to 6-12 beers + some hard liquor a day - denies hx of DT's symptoms - has been at OSH for several days so should be outside the DT window - cont to monitor - consult hepatology for DC recs Empyema lung 05/10/2023 Empyema 05/10/2023 Assessment & Plan (05/17/2023 8:16 AM NEWSPAPER REPORTER): Patient s/p thoracentesis 05/09 at OSH - Stop Vanc, cefe - start Augmentin - CBC pending - Pt recs for home with family Inguinal hernia 05/17/2011 Resolved Problems Problem Noted Date Diagnosed Date Resolved Date Hyperkalemia 05/16/2023 05/17/2023 Assessment & Plan (05/16/2023 11:36 AM NEWSPAPER REPORTER): - recheck labs today - monitor Hyponatremia 05/16/2023 05/17/2023 Assessment & Plan (05/16/2023 11:37 AM NEWSPAPER REPORTER): - mild - monitor Social History Tobacco Use Types Packs/Day Years Used Date Smoking Tobacco: Former Cigarettes 0.5 20 S tarted: 1995 Passive Smoke Exposure: Past AUDIT-C Answer Date Recorded Q1: How often do you have a drink containing alc ohol? Monthly or less 09/05/2023 Q2: How many drinks containi ng alcohol do you have on a typical day when you are drinking? 1 or 2 09/05/2023 Q3: How often do you have si x or more drinks on one occasion? Never 09/05/2023 Personal Safety Answer Date Recorded Have you ever been in or are you currently in a harmful physical or emotional relationship or is someone making you feel afraid or unsafe? Denies 05/10/2023 Sex and Gender Information Value Date Recorded Sex Assigned at Not on file Legal Sex Male 1:46 AM NEWSPAPER REPORTER Gender Identity Not on file Sexual Orientation Not on file Last Filed Vital Signs Vital Sign Reading Time Taken Comments Blood Pressure 117/77 04/19/2024 8:13 AM NEWSPAPER REPORTER Pulse 83 04/19/2024 8:13 AM NEWSPAPER REPORTER Temperature 36.4 C (97.6 F) 04/19/2024 8:13 AM NEWSPAPER REPORTER Respiratory Rate 12 05/31/2023 9:54 AM CDT Oxygen Saturation 96% 04/19/2024 8:13 AM NEWSPAPER REPORTER Inhaled Oxygen Concentration - - Weight 93.3 kg (205 lb 9.6 oz) 04/19/2024 8:13 A M NEWSPAPER REPORTER Height 177.8 cm (5' 10 ) 04/19/2024 8:13 AM NEWSPAPER REPORTER Body Mass Index 29.5 04/19/2024 8:13 AM NEWSPAPER REPORTER Plan of Treatment Not on file Procedures Procedure Name Priority Date/Time Associated Diagnosis Comments GI - RESULT 04/24/2024 6:54 PM NEWSPAPER REPORTER PROTIME-INR Routine 04/19/2024 9:42 AM NEWSPAPER REPORTER Hepatic cirrhosis, unspecified hepatic cirrhosis type, unspecified whether ascites present (HCC) EGFR Routine 04/19/2024 9:41 AM NEWSPAPER REPORTER Hepatic cirrhosis, unspecified hepatic cirrhosis type, unspecified whether ascites present (HCC) DIFFERENTIAL AUTO Routine 04/19/2024 9:4 1 AM NEWSPAPER REPORTER Hepatic cirrhosis, unspecified hepatic cirrhosis type, unspecified whether ascites present (HCC) PHOSPHATIDYLETHANOL Routine 04/19/2024 9 :41 AM NEWSPAPER REPORTER Hepatic cirrhosis, unspecified hepatic cirrhosis type, unspecified whether ascites present (HCC) CBC WITH AUTO DIFFERENTIAL Routine 04/19 9:41 AM NEWSPAPER REPORTER Hepatic cirrhosis, unspecified hepatic cirrhosis type, unspecified whether ascites present (HCC) COMPREHENSIVE METABOLIC PANEL Routine 04/19/2024 9:41 AM NEWSPAPER REPORTER Hepatic cirrhosis, unspecified hepatic cirrhosis type, unspecified whether ascites present (HCC) [id number], TUMOR MARKER Routine 04/19/2024 9:41 AM NEWSPAPER REPORTER Hepatic cirrhosis, unspecified hepatic cirrhosis type, unspecified whether ascites present (HCC) HEPATITIS C RNA, QUANTITATIVE, PCR Routine 04/19/2024 9:41 AM NEWSPAPER REPORTER Hepatic cirrhosis, unspecified hepatic cirrhosis type, unspecified whether ascites present (HCC) from Last 3 Months Results * GI - RESULT (04/24/2024 6:54 PM NEWSPAPER REPORTER) Anatomical Region Laterality Modality Other us Provider Scanning Final Result * Protime-INR (04/19/2024 9:42 AM NEWSPAPER REPORTER) PT 12.6 9.7 - 13.0 sec INR 1.16 0.90 - 1.20 [facility] Comment: Interpretive data Oral anticoagulant therapeutic ranges: Venous thromboembolism prophylaxis or treatment: 2.0-3.0 CARDIOLOGY Standard range: 2.0-3.0 High-intensity range: 2.5-3.5 Refer to indication-specific guidelines for appropriate target ranges for prosthetic heart valve replacement. Current interpretive data was last revised on 2019. Blood 04/19/2024 9:42 AM NEWSPAPER REPORTER 04/19/2024 11:54 AM NEWSPAPER REPORTER us Eneida Hilario NP LAB BLOOD ORDERABLES Final Result [facility] [address] [facility] Department [place] [address] * Phosphatidylethanol (04/19/2024 9:41 AM NEWSPAPER REPORTER) PHOSPHATIDYLETHANOL Positive . [facility] Comment: ADDITIONAL INFORMATION This report is intended for use in clinical monitoring and management of patients. It is not intended for use in employment-related testing. This test was developed and its performance characteristics determined by [facility] in a manner consistent with CLIA requirements. This test has not been cleared or approved by the U.S. Food and Drug Administration. Test Performed by: [facility] [address] Director Of Cardiopulmonary Services: Justa Winters Ph.D.; CLIA# [id number] PEth 16:0/18:1 (POPEth)by LC-MS/MS 227 Cutoff: 10 ng/mL [facility] Comment: Phosphatidylethanol (PEth) homologues result interpretation PEth 16:0/18:1 (POPEth) Less than 10 ng/mL: Not detected 10 - 19 ng/mL: Abstinence or light alcohol consumption (<2 drinks per day for several days a week) 20 - 200 ng/mL: Moderate alcohol consumption (up to 4 drinks per day for several days a week) Greater than 200 ng/mL: Heavy alcohol consumption or chronic alcohol use (at least 4 drinks per day several days a week) (Reference: August Novak and Terri Michael 2018 J. Forensic Sci) Phosphatidylethanol 16:0/18:2 (PLPEth) by LC-MS/MS 204 Cutoff: 10 ng/mL [facility] Comment: PEth 16:0/18:2 (PLPEth) Reference ranges are not well established Blood 04/19/2024 9:41 AM NEWSPAPER REPORTER 04/19/2024 12:16 PM NEWSPAPER REPORTER us Eneida Hilario NP LAB BLOOD ORDERABLES Final Result Performing Organization Address City/[facility]/ZIP Co de Phone Number [facility] [place] [address] [facility] * eGFR (04/19/2024 9:41 AM NEWSPAPER REPORTER) eGFR >90 >=60 mL/min/1. 73 m2 Comment: Interpretive Data Reference Interval Normal >/= 90 mL/min/1.73m2 Mildly decreased* 60 - 89 mL/min/1.73m2 Mildly to moderately decreased 45 - 59 mL/min/1.73m2 Moderately to severely decreased 30 - 44 mL/min/1.73m2 Severely decreased 15 - 29 mL/min/1.73m2 Kidney Failure < 15 mL/min/1.73m2 *Relative to young adult level Estimated glomerular filtration rate is determined by the 2020 CKD-EPI equation recommended by the National Kidney Foundation (A Unifying Approach to GFR Estimation: Recommendations of the NKF-ASK Task Force on Reassessing the Inclusion of Race in Diagnosing Kidney Disease, JASN 2020). The CKD-EPI equation should not be used for patients with unstable renal function and has not been validated in children and those over 70. Current interpretive data was last reviewed 2021. Blood 04/19/2024 9:41 AM NEWSPAPER REPORTER 04/19/2024 12:11 PM NEWSPAPER REPORTER us Eneida Hilario NP LAB BLOOD ORDERABLES Final Result Performing Organization Address City/[facility]/ZIP Co de Phone Number [facility] [place] [address] * Differential, auto (04/19/2024 9:41 AM NEWSPAPER REPORTER) Neutrophil abs 5.2 1.5 - 6.5 K/cumm Imm gran abs 0.0 0.0 - 0.1 K/cumm [facility] Lymphocyte abs 1.7 0.8 - 3.3 K/cumm [facility] Monocyte abs 0.8 0.2 - 0.8 K/cumm [facility] Eosinophil abs 0.2 0.0 - 0.5 K/cumm [facility] Basophil abs 0.0 0.0 - 0.1 K/cumm [facility] Neutrophil pct 65.1 % [facility] Comment: Interpretive Data Percent cell count reference ranges are not reported, since discordance with absolute values may lead to misinterpretation of CBC data. Current Interpretive Data was last revised on 2017. Imm gran pct 0.4 % [facility] Comment: Interpretive Data Percent cell count reference ranges are not reported, since discordance with absolute values may lead to misinterpretation of CBC data. Current Interpretive Data was last revised on 2017. Lymphocyte pct 21.5 % [facility] Comment: Interpretive Data Percent cell count reference ranges are not reported, since discordance with absolute values may lead to misinterpretation of CBC data. Current Interpretive Data was last revised on 2017. Monocyte pct 10.3 % [facility] Comment: Interpretive Data Percent cell count reference ranges are not reported, since discordance with absolute values may lead to misinterpretation of CBC data. Current Interpretive Data was last revised on 2017. Eosinophil pct 2.3 % [facility] Comment: Interpretive Data Percent cell count reference ranges are not reported, since discordance with absolute values may lead to misinterpretation of CBC data. Current Interpretive Data was last revised on 2017. Basophil pct 0.4 % [facility] Comment: Interpretive Data Percent cell count reference ranges are not reported, since discordance with absolute values may lead to misinterpretation of CBC data. Current Interpretive Data was last revised on 2017. Blood 04/19/2024 9:41 AM NEWSPAPER REPORTER 04/19/2024 11:53 AM NEWSPAPER REPORTER Eneida Tobin Yanelis [facility] LAB BLOOD ORDERABLES Final Result Performing Organization Address City/[facility] Co de Phone Number [facility] Department [place] [address] * CBC with auto differential (04/19/2024 9:41 AM NEWSPAPER REPORTER) [facility] WBC 8.0 3.8 - 9.9 K/cumm Hgb 14.4 13.0 - 17.5 g/dL [facility] Hct 42.0 38.9 - 50.3 % [facility] Plt 198 150 - 400 K/cumm [facility] MPV 10.1 9.1 - 12.3 fL [facility] RBC 4.63 4.30 - 5.80 M/cumm [facility] MCV 90.7 81.3 - 96.4 fL [facility] MCH 31.1 27.1 - 33.3 pg [facility] MCHC 34.3 32.3 - 35.7 g/dL [facility] RDW CV 13.3 11.1 - 14.9 % [facility] RDW SD 44.5 35.7 - 48.1 fL [facility] NRBC abs 0.00 0.00 - 0.01 K/cumm [facility] Blood 04/19/2024 9:41 AM NEWSPAPER REPORTER 04/19/2024 11:53 AM NEWSPAPER REPORTER Eneida Tobin Yanelis [facility] LAB BLOOD ORDERABLES Final Result Performing Organization Address City/[facility]/ZIP Co de Phone Number [facility] Department [place] [address] * Hyeut-3-Plplytafiaz, Tumor Marker (04/19/2024 9:41 AM NEWSPAPER REPORTER) [facility] alpha Fetoprotein <2.0 <=8.3 ng/mL Comment: Interpretive Data The Cirilo AFP assay procedure was used. Results from different manufacturers or methods may not be comparable. Serial testing should be performed using the same method. 0-1 month. AFP concentrations may reach or exceed 100,000 ng/mL after depending on gestational age and weight. 1-3 months 50 1000 ng/ml 3-6 months 10 500 ng/ml 6-12 months 3.0 100 ng/ml >1 year 0.0 8.3 ng/ml References Alessandro Hernandez et al. J. Ped Surg 1978;13:155-156 Neil Magallanes. et al. Clin Chem Lab Med 2018;57:783-797 Veronica Tovar et al. Clin Chem 2014;[id number]. Current interpretive data was last revised 2021. Blood 04/19/2024 9:41 AM NEWSPAPER REPORTER 04/19/2024 11:54 AM NEWSPAPER REPORTER Eneida Hilario NP LAB BLOOD ORDERABLES Final Result Performing Organization Address [facility] de Phone Number [facility] [place] [address] * Hepatitis C (HCV) RNA PCR, quantitative Blood (04/19/2024 9:41 AM NEWSPAPER REPORTER) [facility] HCV RNA result Not Detected [facility] Comment: The quantifiable range of this assay is 15 IU/mL to 100,000,000 IU/mL (1.18 log IU/mL to 8.00 log IU/mL). Testing was performed by the NNEKA 6800 HCV Test ([employer] Testing performed at [facility] Current Interpretive Data was last revised on 2020 Blood 04/19/2024 9:41 AM NEWSPAPER REPORTER 04/19/2024 1:25 PM NEWSPAPER REPORTER Eneida Hilario NP LAB MICROBIOLOGY - GENERAL ORDERABLES Final Result Performing Organization Address City/[facility]/ZIP Co de Phone Number [facility] [place] [address] [facility] * Comprehensive metabolic panel (04/19/2024 9:41 AM NEWSPAPER REPORTER) Sodium 139 135 - 145 mmol/L Potassium, pl 4.6 3.3 - 4.9 mmol/L [facility] Chloride 99 97 - 110 mmol/L [facility] CO2 32 22 - 32 mmol/L [facility] Anion gap 8 2 - 15 mmol/L [facility] BUN 16 6 - 25 mg/dL [facility] Creatinine 0.82 0.80 - 1.30 mg/dL [facility] Glucose 123 70 - 199 mg/dL [facility] Comment: Interpretive Data Fasting glucose >/= 126 mg/dl is diagnostic for diabetes. Fasting is defined as no caloric intake for at least 8 hours. Fasting glucose between 100 mg/dl to 125 mg/dl is diagnostic of prediabetes. In a patient with classic symptoms of hyperglycemia or hyperglycemic crisis, a random glucose >/= 200 mg/dl is diagnostic for diabetes. In the absence of unequivocal hyperglycemia, results should be confirmed by repeat testing. The classification and Diagnosis of Diabetes Diabetes Care 202; 46: S19-S40. Current interpretive data was last revised 2022. Calcium 9.6 8.5 - 10.3 mg/dL [facility] Bilirubin, total 0.5 0.1 - 1.2 mg/dL [facility] Protein, pl 8.2 6.5 - 8.5 g/dL [facility] Albumin 3.9 3.5 - 5.0 g/dL [facility] Alk phos 84 40 - 130 Units/L [facility] ALT 19 7 - 55 Units/L [facility] AST 28 10 - 50 Units/L [facility] Blood 04/19/2024 9:41 AM NEWSPAPER REPORTER 04/19/2024 11:54 AM NEWSPAPER REPORTER us Eneida Hilario NP LAB BLOOD ORDERABLES Final Result [facility] One [facility] Department [place] [address] from Last 3 Months Insurance IDPA MEDICARE [facility] Address: [address] [address] [place] [address] COMMERCIAL GENERIC HUMANA CHOICE MEDICARE PPO HUMANA CHOICE MEDICARE PPO Advance Directives For more information, please contact: [phone] * Full Code (Latest Code Status on File) Date Activated Date Inactivated Comments 05/10/2023 10:38 PM 05/18/2023 5:43 PM Care Teams Conveyor Technician Relationship Specialty Start Date End Date Ramon Guardado MD PCP - General Family Practice 04/14/23
--- OUTSIDE RECORDS SUMMARY | 2024-07-03 13:59 | XMS_ITS | Clinical Summary ---
Author Organization [facility] Address [address] [place] [address] Care Team Providers Care Carton Liner Name Role Phone Ramon Guardado MD Primary Care Provider [phone] Allergies No known active allergies Medications gabapentin [...] 024 Assessment & Plan (04/19/2024 8:48 AM CLINICAL PHARMACY TECHNICIAN): Mr. Albarran returns for Chronic Hepatitis C [...] show unknown. I will obtain report from [facility] in [place]. #Labs: Patient due for lab work today: [...] 05/16/2023 Assessment & Plan (05/16/2023 11:37 AM CLINICAL PHARMACY TECHNICIAN): - monitor - R/T hx ETOH abuse Alcohol abuse 05/11/2023 Assessment & Plan (05/11/2023 12:05 PM CLINICAL PHARMACY TECHNICIAN): admits to 6-12 beers + some hard [...] #Variceal Screening: Last colonoscopy was performed at [facility] 2-3 years ago per patient. Results show unknown. Fibroscan 07/11/2023: kPa 32.1, CAP 267 suggestive of normal moderate steatosis, very high fibrosis. Baveno Criteria, kPa > 20 or Platelet count > 150K , recommend EGD for variceal surveillance. He is to get EGD/Colonoscopy scheduled at [facility]. We will obtain the reports. #Labs: Last [...] #Variceal Screening: Last colonoscopy was performed at [facility] 2-3 years ago per patient. Results [...] months. Assessment & Plan (05/13/2023 10:28 AM CLINICAL PHARMACY TECHNICIAN): - Monitor AST/ALT - has seen someone in past at [facility] and has been told that he has cirrhosis - admits to 6-12 beers + some hard liquor a day - denies hx of DT's symptoms - has been at OSH for several days so should be outside the DT window - cont to monitor - consult hepatology for DC recs Empyema lung 05/10/2023 Empyema 05/10/2023 Assessment & Plan (05/17/2023 8:16 AM CLINICAL PHARMACY TECHNICIAN): Patient s/p thoracentesis 05/09 at OSH - Stop Vanc, cefe - start Augmentin - CBC pending - Pt recs for home with family Inguinal hernia 05/17/2011 Resolved Problems Problem Noted Date Diagnosed Date Resolved Date Hyperkalemia 05/16/2023 05/17/2023 Assessment & Plan (05/16/2023 11:36 AM CLINICAL PHARMACY TECHNICIAN): - recheck labs today - monitor Hyponatremia 05/16/2023 05/17/2023 Assessment & Plan (05/16/2023 11:37 AM CLINICAL PHARMACY TECHNICIAN): - mild - monitor Encounters Date Type Department Care Team Description 05/01/2024 Documentation [facility] Gastroenterology [facility] Medicine 12th [place] [address] [place] [address] Marge Brantley LPN 04/24/2024 Orders Only [facility] Scanning, Provider 04/24/2024 Telephone [facility] Gastroenterology [address] [place] [address] [address]th [place] [address] [place] [address] Marge Brantley LPN 04/23/2024 Documentation [facility] Gastroenterology [facility] 12th [place] [address] [place] [address] Marge Brantley LPN 04/19/2024 8:55 AM CLINICAL PHARMACY TECHNICIAN Lab [facility] [address] [place] [address] [address] [place] [address] Hepatic cirrhosis, unspecified hepatic cirrhosis type, unspecified whether ascites present (HCC) 04/19/2024 8:20 AM CLINICAL PHARMACY TECHNICIAN Office Visit [facility] Gastroenterology [address] [facility] 2nd Floor [address] [place] [address] Eneida Hilario, KATHRIN Hepatic cirrhosis, unspecified hepatic cirrhosis type, unspecified whether ascites present (HCC) (Primary Dx) 04/19/2024 Telephone [facility] Gastroenterology [address] [place] [address] Eneida Hilario NP 04/18/2024 Telephone [facility] Gastroenterology [address] [facility] 12th [place] [address] [place] [address] Marge Brantley LPN 04/17/2024 Telephone [facility] Gastroenterology [address] [facility] 12th [place] [address] [place] [address] Nawaf Disla RN from Last 3 Months Medical History Medical History Date Comments Cirrhosis (HCC) Alcohol abuse Social History Tobacco Use Types Packs/Day Years [...] on file Legal Sex Male 1:46 AM CLINICAL PHARMACY TECHNICIAN Gender Identity Not on file Sexual Orientation Not on file Obstetrics History Last Filed Vital Signs Vital Sign Reading Time Taken Comments Blood Pressure 117/77 04/19/2024 8:13 AM CLINICAL PHARMACY TECHNICIAN Pulse 83 04/19/2024 8:13 AM CLINICAL PHARMACY TECHNICIAN Temperature 36.4 C (97.6 F) 04/19/2024 8:13 AM CLINICAL PHARMACY TECHNICIAN Respiratory Rate 12 05/31/2023 9:54 AM CDT Oxygen Saturation 96% 04/19/2024 8:13 AM CLINICAL PHARMACY TECHNICIAN Inhaled Oxygen Concentration - - Weight 93.3 kg (205 lb 9.6 oz) 04/19/2024 8:13 A M CLINICAL PHARMACY TECHNICIAN Height 177.8 cm (5' 10 ) 04/19/2024 8:13 AM CLINICAL PHARMACY TECHNICIAN Body Mass Index 29.5 04/19/2024 8:13 AM CLINICAL PHARMACY TECHNICIAN Plan of Treatment Health Maintenance Due Date Last Done Comments Colon Cancer Screening-Colonoscopy 1960 Depression Screening 1960 Prostate Cancer Screening-PSA 1958 Pneumococcal vaccine 65+ (1 of 2 - PCV) 1977 Zoster Vaccine (1 of 2) 2008 Well Visit 65+ 08/27/2023 Fall Risk Assessment 05/17/2024 05/18/2023 Influenza Vaccine (Season Ended) 2024 DTaP/Tdap/Td Vaccine (3 - Td or Tdap) 11/13/2033 11/14/2023, 06/06/2022 Hepatitis B Screening Completed 07/11/2023 Abdominal Aortic Aneurysm (A AA) Screen Completed 11/13/2023, 06/06/2022 Hepatitis C Screening Completed 04/19/2024 , 09/22/2023, 09/22/2023, Additional history exists Procedures Procedure Name Priority Date/Time Associated Diagnosis Comments GI - RESULT 04/24/2024 6:54 PM CLINICAL PHARMACY TECHNICIAN PROTIME-INR Routine 04/19/2024 9:42 AM CLINICAL PHARMACY TECHNICIAN Hepatic cirrhosis, unspecified hepatic cirrhosis type, unspecified whether ascites present (HCC) EGFR Routine 04/19/2024 9:41 AM CLINICAL PHARMACY TECHNICIAN Hepatic cirrhosis, unspecified hepatic cirrhosis type, unspecified whether ascites present (HCC) DIFFERENTIAL AUTO Routine 04/19/2024 9:4 1 AM CLINICAL PHARMACY TECHNICIAN Hepatic cirrhosis, unspecified hepatic cirrhosis type, unspecified whether ascites present (HCC) PHOSPHATIDYLETHANOL Routine 04/19/2024 9 :41 AM CLINICAL PHARMACY TECHNICIAN Hepatic cirrhosis, unspecified hepatic cirrhosis type, unspecified whether ascites present (HCC) CBC WITH AUTO DIFFERENTIAL Routine 04/19 9:41 AM CLINICAL PHARMACY TECHNICIAN Hepatic cirrhosis, unspecified hepatic cirrhosis type, unspecified whether ascites present (HCC) COMPREHENSIVE METABOLIC PANEL Routine 04/19/2024 9:41 AM CLINICAL PHARMACY TECHNICIAN Hepatic cirrhosis, unspecified hepatic cirrhosis type, unspecified whether ascites present (HCC) [id number], TUMOR MARKER Routine 04/19/2024 9:41 AM CLINICAL PHARMACY TECHNICIAN Hepatic cirrhosis, unspecified hepatic cirrhosis type, unspecified whether ascites present (HCC) HEPATITIS C RNA, QUANTITATIVE, PCR Routine 04/19/2024 9:41 AM CLINICAL PHARMACY TECHNICIAN Hepatic cirrhosis, unspecified hepatic cirrhosis type, unspecified whether ascites present (HCC) from Last 3 Months Results * GI - RESULT (04/24/2024 6:54 PM CLINICAL PHARMACY TECHNICIAN) Anatomical Region Laterality Modality Other us Provider Scanning Final Result * Protime-INR (04/19/2024 9:42 AM CLINICAL PHARMACY TECHNICIAN) PT 12.6 9.7 - 13.0 sec INR 1.16 0.90 - 1.20 [facility] TAVERAS Comment: Interpretive data Oral anticoagulant therapeutic ranges: Venous thromboembolism prophylaxis or treatment: 2.0-3.0 CARDIOLOGY Standard range: 2.0-3.0 High-intensity range: 2.5-3.5 Refer to indication-specific guidelines for appropriate target ranges for prosthetic heart valve replacement. Current interpretive data was last revised on 2019. Blood 04/19/2024 9:42 AM CLINICAL PHARMACY TECHNICIAN 04/19/2024 11:54 AM CLINICAL PHARMACY TECHNICIAN us Eneida Hilario NP LAB BLOOD ORDERABLES Final Result [facility] One [facility] Department [place] [address] * Phosphatidylethanol (04/19/2024 9:41 AM CLINICAL PHARMACY TECHNICIAN) PHOSPHATIDYLETHANOL Positive . [facility] Comment: ADDITIONAL INFORMATION This report is intended for use in clinical monitoring and management of patients. It is not intended for use in employment-related testing. This test was developed and its performance characteristics determined by [facility] in a manner consistent with CLIA requirements. This test has not been cleared or approved by the U.S. Food and Drug Administration. Test Performed by: [facility] [address] [place] [address] Gas Fitter: Justa Winters Ph.D.; CLIA# [id number] PEth 16:0/18:1 (POPEth)by LC-MS/MS 227 Cutoff: 10 ng/mL [facility] TAVERAS Comment: Phosphatidylethanol (PEth) homologues result interpretation PEth [...] by LC-MS/MS 204 Cutoff: 10 ng/mL [facility]IEN AREVALO Comment: PEth 16:0/18:2 (PLPEth) Reference ranges are not well established Blood 04/19/2024 9:41 AM CLINICAL PHARMACY TECHNICIAN 04/19/2024 12:16 PM CLINICAL PHARMACY TECHNICIAN us Eneida Hilario NP LAB BLOOD ORDERABLES Final Result [facility] One [facility] Department [place] [address] [facility] * eGFR (04/19/2024 9:41 AM CLINICAL PHARMACY TECHNICIAN) eGFR >90 >=60 mL/min/1. 73 m2 Comment: [...] last reviewed 2021. Blood 04/19/2024 9:41 AM CLINICAL PHARMACY TECHNICIAN 04/19/2024 12:11 PM CLINICAL PHARMACY TECHNICIAN us Eneida Hilario NP LAB BLOOD ORDERABLES Final Result [facility] One [facility] Department [place] [address] * Differential, auto (04/19/2024 9:41 AM CLINICAL PHARMACY TECHNICIAN) Neutrophil abs 5.2 1.5 - 6.5 K/cumm Imm gran abs 0.0 0.0 - 0.1 K/cumm [facility] Lymphocyte abs 1.7 0.8 - 3.3 K/cumm [facility] Monocyte abs 0.8 0.2 - 0.8 K/cumm [facility] Eosinophil abs 0.2 0.0 - 0.5 K/cumm [facility] Basophil abs 0.0 0.0 - 0.1 K/cumm [facility] Neutrophil pct 65.1 % [facility] Comment: Interpretive Data Percent cell count reference ranges are not reported, since discordance with absolute values may lead to misinterpretation of CBC data. Current Interpretive Data was last revised on 2017. Imm gran pct 0.4 % [facility] Comment: Interpretive Data Percent cell count reference ranges are not reported, since discordance with absolute values may lead to misinterpretation of CBC data. Current Interpretive Data was last revised on 2017. Lymphocyte pct 21.5 % [facility] Comment: Interpretive Data Percent cell count reference ranges are not reported, since discordance with absolute values may lead to misinterpretation of CBC data. Current Interpretive Data was last revised on 2017. Monocyte pct 10.3 % [facility] Comment: Interpretive Data Percent cell count reference ranges are not reported, since discordance with absolute values may lead to misinterpretation of CBC data. Current Interpretive Data was last revised on 2017. Eosinophil pct 2.3 % [facility] Comment: Interpretive Data Percent cell count reference ranges are not reported, since discordance with absolute values may lead to misinterpretation of CBC data. Current Interpretive Data was last revised on 2017. Basophil pct 0.4 % [facility] Comment: Interpretive Data Percent cell count reference ranges are not reported, since discordance with absolute values may lead to misinterpretation of CBC data. Current Interpretive Data was last revised on 2017. Blood 04/19/2024 9:41 AM CLINICAL PHARMACY TECHNICIAN 04/19/2024 11:53 AM CLINICAL PHARMACY TECHNICIAN Eneida Hilario NP LAB BLOOD ORDERABLES Final Result [facility] One [facility] Department [place] [address] * CBC with auto differential (04/19/2024 9:41 AM CLINICAL PHARMACY TECHNICIAN) WBC 8.0 3.8 - 9.9 K/cumm Hgb 14.4 13.0 - 17.5 g/dL [facility] Hct 42.0 38.9 - 50.3 % [facility] Plt 198 150 - 400 K/cumm [facility] MPV 10.1 9.1 - 12.3 fL [facility] RBC 4.63 4.30 - 5.80 M/cumm [facility] MCV 90.7 81.3 - 96.4 fL [facility] MCH 31.1 27.1 - 33.3 pg [facility] MCHC 34.3 32.3 - 35.7 g/dL [facility] RDW CV 13.3 11.1 - 14.9 % [facility] RDW SD 44.5 35.7 - 48.1 fL [facility] NRBC abs 0.00 0.00 - 0.01 K/cumm [facility] Blood 04/19/2024 9:41 AM CLINICAL PHARMACY TECHNICIAN 04/19/2024 11:53 AM CLINICAL PHARMACY TECHNICIAN us Eneida Tobin Yanelis ADULT LITERACY INSTRUCTOR LAB BLOOD ORDERABLES Final Result Performing Organization Address City/[facility] Co de Phone Number [facility] [employer] [place] [address] * [id number], Tumor Marker (04/19/2024 9:41 AM CLINICAL PHARMACY TECHNICIAN) Pathologist [facility] alpha Fetoprotein <2.0 <=8.3 ng/mL Comment: Interpretive [...] >1 year 0.0 8.3 ng/ml References Alessandro Y. et al. J. Ped Surg 1978;13:155-156 Neil Magallanes. et al. Clin Chem Lab Med 2018;57:783-797 Veronica Tovar et al. Clin Chem 2014;[id number]. Current interpretive data was last revised 2021. Blood 04/19/2024 9:41 AM CLINICAL PHARMACY TECHNICIAN 04/19/2024 11:54 AM CLINICAL PHARMACY TECHNICIAN us Eneida Tobin Yanelis PINON LAB BLOOD ORDERABLES Final Result Performing Organization Address [facility] Co de Phone Number [facility] [place] [employer] [place] [address] * Hepatitis C (HCV) RNA PCR, quantitative Blood (04/19/2024 9:41 AM CLINICAL PHARMACY TECHNICIAN) Pathologist [facility] HCV RNA result Not Detected [facility] Comment: The quantifiable range of this assay is 15 IU/mL to 100,000,000 IU/mL (1.18 log IU/mL to 8.00 log IU/mL). Testing was performed by the [employer] 6800 HCV Test ([employer] Testing performed at [facility] Current Interpretive Data was last revised on 2020 Blood 04/19/2024 9:41 AM CLINICAL PHARMACY TECHNICIAN 04/19/2024 1:25 PM CLINICAL PHARMACY TECHNICIAN us Eneida Hilario NP LAB MICROBIOLOGY - GENERAL ORDERABLES Final Result [facility] One [facility] Department [place] [address] [facility] * Comprehensive metabolic panel (04/19/2024 9:41 AM CLINICAL PHARMACY TECHNICIAN) [facility] Sodium 139 135 - 145 mmol/L Potassium, pl 4.6 3.3 - 4.9 mmol/L [facility] Chloride 99 97 - 110 mmol/L [facility] CO2 32 22 - 32 mmol/L [facility] Anion gap 8 2 - 15 mmol/L [facility] BUN 16 6 - 25 mg/dL [facility] Creatinine 0.82 0.80 - 1.30 mg/dL [facility] Glucose 123 70 - 199 mg/dL [facility] Comment: Interpretive Data Fasting glucose >/= [...] 2022. Calcium 9.6 8.5 - 10.3 mg/dL [facility] Bilirubin, total 0.5 0.1 - 1.2 mg/dL [facility] Protein, pl 8.2 6.5 - 8.5 g/dL [facility] Albumin 3.9 3.5 - 5.0 g/dL [facility] Alk phos 84 40 - 130 Units/L [facility] ALT 19 7 - 55 Units/L [facility] AST 28 10 - 50 Units/L [facility] Blood 04/19/2024 9:41 AM CLINICAL PHARMACY TECHNICIAN 04/19/2024 11:54 AM CLINICAL PHARMACY TECHNICIAN us Eneida Hilario NP LAB BLOOD ORDERABLES Final Result [facility] One [facility] Department [place] [address] from Last 3 Months Insurance [facility] MEDICARE COMMERCIAL GENERIC HUMANA CHOICE MEDICARE PPO HUMANA CHOICE MEDICARE PPO Advance Directives For more information, please contact: [phone] * Full Code (Latest Code Status on File) Date Activated Date Inactivated Comments 05/10/2023 10:38 PM 05/18/2023 5:43 PM Care Teams Carton Liner Relationship Specialty Start Date End Date Ramon Guardado MD PCP - General Family Practice 04/14/23
--- OUTSIDE RECORDS SUMMARY | 2024-07-03 13:59 | XMS_ITS | Encounter Summary ---
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
--- OUTSIDE RECORDS SUMMARY | 2024-07-03 13:59 | XMS_ITS | Encounter Summary ---
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 Gender Identity Not on file Sexual Orientation Not on file documented as of this encounter Plan of Treatment Not on file documented as of this encounter Procedures Procedure Name Priority Date/Time Associated Diagnosis Comments SCAN - RADIOLOGY/IMAGING 12/22/2023 documented in this encounter Results * SCAN - RADIOLOGY/IMAGING (12/22/2023) Anatomical Region Laterality Modality Other us Provider Scanning Final Result documented in this encounter Visit Diagnoses Not on filedocumented in this encounter Care Teams Echocardiography Radiology Technologist Relationship Specialty Start Date End Date Ramon Guardado MD PCP - General Family Practice 04/14/23 documented as of this encounter
--- OUTSIDE RECORDS SUMMARY | 2024-07-03 13:59 | XMS_ITS | Clinical Summary ---
Author Organization [facility] Address [address], [address] [address] Phone Care Team Providers Care Grain Oilseed Or Pasture Farm Manager Name Role Phone Guy Madison MD Primary Care Provider [phone] Medications polyethylene glycol (MIRALAX) Powder Mix the entire bottle with 64 oz of a clear liquid. Use as directed by the office for colonoscopy prep. 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 Gender Identity Not on file Sexual Orientation Not on file Plan of Treatment Health Maintenance Due Date Last Done Comments Hepatitis C Virus (HCV) Screening 1960 TdaP Immunization 1960 Cologuard 2008 Immunochemical Fecal Occult Blood 2008 Pneumococcal Immunization (5 0+ years) (1 of 1 - PCV) 2008 Zoster Immunization (1 of 2) 2008 PSA Discussion 2013 Colonoscopy 08/04/2022 08/04/2012 Colorectal Cancer Screening 08/04/2022 Influenza Immunization (#1) 2023 SARS-COV-2 Immunization ( - season) 2023 Respiratory Syncytial Virus (RSV) Immunization (Adult) (1 - 1-dose 75+ series) 2033 08/04/2012 Hepatitis B Immunization Aged Out No longer eligible based on patient's age to complete this topic Meningococcal Immunization (ACWY) Aged Out No longer eligible based on patient's age to complete this topic Rotavirus Immunization Aged Out No lo nger eligible based on patient's age to complete this topic Procedures Procedure Name Priority Date/Time Associated Diagnosis Comments COLONOSCOPY Routine 08/04/2012 from Last 3 Months or Most Recently Relevant to Health Maintenance Results * COLONOSCOPY (08/04/2012) Jerald Gar PROCEDURE/MINOR SURGICAL ORDERAB LES Edited Result - Final from Last 3 Months or Most Recently Relevant to Health Maintenance Insurance MEDICAID [facility] Care Teams Grain Oilseed Or Pasture Farm Manager Relationship Specialty Start Date End Date Guy Madison MD [address] [facility] [address] [place] [address] PCP - General Internal Medicine 05/13/16
--- OUTSIDE RECORDS SUMMARY | 2024-07-03 13:59 | XMS_ITS | Continuity of Care Document ---
Author Organization [facility] Address [address] [place] [address] [place] [address] Phone Care Team Providers Care Gas Welder Apprentice Name Role Phone Jerald Gar MD Unavailable Unavailable Allergies, Adverse Reactions, Alerts Substance Reaction Status Criticality No Known Allergies Active No Inform ation Medications Medication Instructions Dosage Effective Dates (start - stop) Status Comments Lorcet 10/650 10-650 mg tablet take 1 tablet by oral route 4 times every day as needed for pain - Active avoid driving or operate machines amitriptyline 25 mg tablet take 1 tablet (25MG) by oral route every day at bedtime 25 MG - Active Procedures Procedure Date OFFICE/OUTPATIENT VISIT, EST OFFICE/OUTPATIENT VISIT, EST OFFICE/OUTPATIENT VISIT, EST OFFICE/OUTPATIENT VISIT, EST PREV VISIT, EST, AGE 40-64 OFFICE/OUTPATIENT VISIT, EST OFFICE/OUTPATIENT VISIT, EST OFFICE/OUTPATIENT VISIT, EST OFFICE/OUTPATIENT VISIT, EST Advance Directives Directive Yes / No Effective Date File Name No Information Encounters Encounter Description Practice Location Reason(s) For Visit Diagnoses Date Provider Providers Copied on Encounter [facility], [address], [id number], tel:[phone] [facility] Medicine No Information 3 Cong Marques. [address], [id number] , [place]. tel:[phone] Referring Provider: Amador Carrizales [facility], [place], [place], [address]. tel:[phone] OFFICE/OUTPA TIENT VISIT, [facility], [address], [place], [place], [address], [place] tel:[phone] [facility] scapular pain (chief complaint) chronic pain (chief complaint) ED (chief complaint) anemia (chief complaint) Dietary surveillance and counselingAnemiaEre ctile DysfunctionPain in joint involving lower legNondependent alcohol abuse, unspecified drinking behavior Srikanth-0 5 3 Cong Marques. [address], [place], [place], [address] , [place]. tel:[phone] Referring Provider: Amador Carrizales [address], [place], [place], [address]. tel:[phone] OFFICE/OUTPA TIENT VISIT, [facility], [facility] [address], [place], [place], [address], [place] tel:[phone] [facility] chronic pain (chief complaint) Dietary surveillance and counselingAnemiaCHR ONIC PAIN NEC July-0 3 3 Cong Marques. [address], [place], [place], [address] , [place]. tel:[phone] Referring Provider: Amador Carrizales [address], [place], [place], [address]. tel:[phone] OFFICE/OUTPA TIENT VISIT, [facility], [address], [place], [place], [address], [place] tel:[phone] chronic pain (chief complaint) Anemia (chief complaint) Dietary surveillance and counselingCHRONIC PAIN NECAnemiaInsomnia, Other Apr-0 8 3 Cong Marques. [address], [place], [place], [address] , [place]. tel:[phone] Referring Provider: Amador Carrizales [address], [place], [place], [address]. tel:[phone] OFFICE/OUTPA TIENT VISIT, [facility], [address], [place], [place], [address], [place] [phone] [facility] Medicine Chronic pain (chief complaint) Insomnia (chief complaint) Ed (chief complaint) Dietary surveillance and counselingCHRONIC PAIN NECAnemiaInsomnia, Other 3 Cong Marques. [address], [place], [place], [address] , [place]. [phone] Referring Provider: Jerald Gar, [address], [place], [place], [address]. tel:[phone] PREV VISIT, EST, AGE 40-64 [facility], [address], [place], [place], [address], [place] [phone] Physical (chief complaint) Dietary surveillance and counselingRoutine Medical ExamCHRONIC PAIN NECNondependent alcohol abuse, unspecified drinking behaviorRoutine Medical Exam 3 Cong Marques. [address], [place], [place], [address] , [place]. [phone] Referring Provider: Amador Carrizales [address], [place], [place], [address]. tel:[phone] OFFICE/OUTPA TIENT VISIT, [facility], [address], [place], [place], [address], [place] [phone] [facility] foot pain (chief complaint) chronic pain (chief complaint) Pain in joint involving lower legDietary surveillance and counselingAnemiaNon dependent alcohol abuse, unspecified drinking behavior 3 Cong Marques. [address], [place], [place], [address] , [place]. [phone] Referring Provider: Amador Carrizales [address], [place], [place], [address]. tel:[phone] OFFICE/OUTPA TIENT VISIT, [facility], [address], [place], [place], [address], [place] tel:[phone] chronic pain (chief complaint) ED (chief complaint) anemia (chief complaint) Dietary surveillance and counselingCHRONIC PAIN NECAnemiaErectile DysfunctionNondepen dent alcohol abuse, unspecified drinking behavior 2 Cong Marques. [address], [place], [place], [address] , [place]. [phone] Referring Provider: Jerald Gar, [address], [place], [place], [address]. tel:[phone] OFFICE/OUTPA TIENT VISIT, [facility], [address], [place], [place], [address], [place] [phone] [facility] Medicine chornic pain (chief complaint) insomnia (chief complaint) Dietary surveillance and counselingCHRONIC PAIN NECInsomnia, OtherErectile Dysfunction 2 Cong Marques. [address], [place], [place], [address] , [place]. [phone] Family History Family Member Type Diagnosis Age At Onset Mother Problem (finding) Alive and well Brother Problem (finding) Alive and well Father Problem (finding) Alive and well Payers Payer name Insurance type Covered republican ID Authoriza tion(s) No Information Social History Type Description Quantity Date Captured Comments Sex Male Smoking Status No Information Chief Complaint And Reason For Visit No Information Plan Of Treatment Date Type Action Status Goal Tobacco cessation counseling completed Goal Tobacco cessation counseling completed Goal Tobacco cessation counseling completed Goal Tobacco cessation counseling completed Goal Tobacco cessation counseling completed Goal Tobacco cessation counseling completed Referral Ordered: COLONOSCOPY AND BIOPSY ordered Referral Ordered: FOOT XRAY, TWO VIEW Right ordered History Of Present Illness Encounter Date Complaint History Of Prese nt Illness No Information Instructions Date Instruction Additional Infor aristeo Decrease caloric intake Related to Dietary surveillance counseling Dietary counseling Related to Di etary surveillance counseling Decrease caloric intake Related to Dietary surveillance counseling Dietary counseling Related to Di etary surveillance counseling Decrease caloric intake Related to Dietary surveillance counseling Dietary counseling Related to Di etary surveillance counseling Decrease caloric intake Related to Dietary surveillance counseling Dietary counseling Related to Di etary surveillance counseling Dietary counseling Related to Di etary surveillance counseling Decrease caloric intake Related to Dietary surveillance counseling Dietary counseling Related to Di etary surveillance counseling Decrease caloric intake Related to Dietary surveillance counseling Decrease caloric intake Related to Dietary surveillance counseling Dietary counseling Related to Di etary surveillance counseling Dietary counseling Related to Di etary surveillance counseling Decrease caloric intake Related to Dietary surveillance counseling Assessments Type Assessment Date No Information
== END 2024-07-03 12:18 | disposition home or self-care (01) ==
LOC: ANHSURGERY 12:21
PROVIDERS: Anesthesiology; PCP Family Medicine; Visit Provider Podiatrist Foot & Ankle Surgery
DX: K70.9 Alcoholic liver disease, unspecified (principal)
CPT/HCPCS: 36415; 80048; 85610; 85730

== ENCOUNTER 2024-07-04 10:08 | Outpatient (CLI) | payer MEDICARE, SELFPAY ==
--- NOTE | ~2024-07-04 | NM_ITS ---
EXAMINATION: NM amish stress w perfusion DATE: 07/04/2024 13:56 INDICATION: Encounter for preprocedural cardiovascular examination TECHNIQUE: Rest images were obtained following intravenous administration of 9 mCi Tc99m tetrofosmin (Myoview). The patient was infused intravenously with Lexiscan (Regadenoson). Then, 30 mCi Tc99m tetr ofosmin (Myoview) was administered intravenously, and stress images were obtained initially in the gutierrez pine position with repeat post stress images obtained in the prone position. Data was reconstructed i nto short axis and horizontal and vertical long axis SPECT images. Gated SPECT images were also obtai néstor. COMPARISON: None. FINDINGS: There is diaphragmatic attenuation artifact along the inferior wall on the imaging obtained in the supine position which normalizes on the post stress images obtained in the prone position. Th ere is no definite reversible or fixed perfusion abnormality to suggest ischemia or infarction. Ther e is normal left ventricular chamber size, wall motion and ejection fraction. Left ventricular eject ion fraction measures 55%. IMPRESSION: 1. Normal myocardial perfusion at rest and during stress. 2. Left ventricular ejection fraction measuring 55%. Reviewed, dictated and finalized at location A.
--- NOTE | 2024-07-04 10:26 | EST_ITS ---
Patient Info Name: Jann Albarran Age: 63 years : 1960 Gender: Male Ht: 70 in Wt: 209 lbs BSA: 2.19 m2 HR: 54 bpm BP: 139 / 101 mmHg Exam Date: 07/04/2024 11:06 AM Exam Location: Echo Lab Patient Status: Outpatient Admit Date: 07/04/2024 Staff Ordering Physician: Glenroy Saini DO Attending Provider: Glenroy Saini DO Exercise Technologist: Preeti Rinaldi RDCS Exercise Physician: Glenroy Saini DO Exam Type: CA stress amish w NM Study Info A regadenoson stress test was performed. Summary 1. 1. Negative lexiscan stress test for ischemic ST changes by ECG criteria. 2. 2. Stable hemodynamics throughout the test. 3. 3. Nuclear scan to follow and will be reported separately. Please correlate with it. 4. 4. Patient informed of the above results. Protocol: Lexiscan Stress ECG Details Stage: REST Duration (min): 0 min : 43 sec HR (bpm): 54 SBP (mmHg): 139 DBP (mmHg): 101 Stage: REST Duration (min): 3 min : 2 sec HR (bpm): 56 SBP (mmHg): 139 DBP (mmHg): 101 Stage: STAGE 1 Duration (min): 1 min : 0 sec HR (bpm): 62 SBP (mmHg): 133 DBP (mmHg): 103 Stage: RECOVERY Duration (min): 1 min : 0 sec HR (bpm): 78 SBP (mmHg): 133 DBP (mmHg): 103 Stage: RECOVERY Duration (min): 2 min : 0 sec HR (bpm): 89 SBP (mmHg): 133 DBP (mmHg): 103 Stage: RECOVERY Duration (min): 3 min : 0 sec HR (bpm): 84 SBP (mmHg): 157 DBP (mmHg): 106 Stage: RECOVERY Duration (min): 3 min : 3 sec HR (bpm): 83 SBP (mmHg): 157 DBP (mmHg): 106 Rest HR: 56 bpm Peak HR: 89 bpm Rest Sys BP: 139 mmHg Peak Sys BP: 157 mmHg Max Pred HR: 155 bpm % Max Pred HR: 57 % Target HR: 132 bpm Max RPP: 13,973 bpm*mmHg Termination Reason: Completed protocol Cardiac Symptoms: Shortness of breath Total Time: 1 min : 0 sec Rest Franks BP: 101 mmHg Peak Franks BP: 106 mmHg Total Dose: 0.4 mg Resting ECG Sinus bradycardia. Stress ECG No ST changes. Arrhythmias None. Report Signatures
--- OUTSIDE RECORDS SUMMARY | 2024-07-04 11:44 | XMS_ITS | Clinical Summary ---
Author Organization [facility] Address [address] [place] [address] Care Team Providers Care Ebd Teacher Name Role Phone Ramon Guardado MD Primary Care Provider [phone] Allergies No known active allergies Medications gabapentin [...] 024 Assessment & Plan (04/19/2024 8:48 AM BRAZER CONTROLLED ATMOSPHERIC FURNACE): Mr. Albarran returns for Chronic Hepatitis C [...] show unknown. I will obtain report from [facility] in [place]. #Labs: Patient due for lab work today: [...] 05/16/2023 Assessment & Plan (05/16/2023 11:37 AM BRAZER CONTROLLED ATMOSPHERIC FURNACE): - monitor - R/T hx ETOH abuse Alcohol abuse 05/11/2023 Assessment & Plan (05/11/2023 12:05 PM BRAZER CONTROLLED ATMOSPHERIC FURNACE): admits to 6-12 beers + some hard [...] #Variceal Screening: Last colonoscopy was performed at [facility] 2-3 years ago per patient. Results show unknown. Fibroscan 07/11/2023: kPa 32.1, CAP 267 suggestive of normal moderate steatosis, very high fibrosis. Baveno Criteria, kPa > 20 or Platelet count > 150K , recommend EGD for variceal surveillance. He is to get EGD/Colonoscopy scheduled at [facility]. We will obtain the reports. #Labs: Last [...] #Variceal Screening: Last colonoscopy was performed at [facility] 2-3 years ago per patient. Results show [...] months. Assessment & Plan (05/13/2023 10:28 AM BRAZER CONTROLLED ATMOSPHERIC FURNACE): - Monitor AST/ALT - has seen someone in past at [facility] and has been told that he has cirrhosis - admits to 6-12 beers + some hard liquor a day - denies hx of DT's symptoms - has been at OSH for several days so should be outside the DT window - cont to monitor - consult hepatology for DC recs Empyema lung 05/10/2023 Empyema 05/10/2023 Assessment & Plan (05/17/2023 8:16 AM BRAZER CONTROLLED ATMOSPHERIC FURNACE): Patient s/p thoracentesis 05/09 at OSH - Stop Vanc, cefe - start Augmentin - CBC pending - Pt recs for home with family Inguinal hernia 05/17/2011 Resolved Problems Problem Noted Date Diagnosed Date Resolved Date Hyperkalemia 05/16/2023 05/17/2023 Assessment & Plan (05/16/2023 11:36 AM BRAZER CONTROLLED ATMOSPHERIC FURNACE): - recheck labs today - monitor Hyponatremia 05/16/2023 05/17/2023 Assessment & Plan (05/16/2023 11:37 AM BRAZER CONTROLLED ATMOSPHERIC FURNACE): - mild - monitor Encounters Date Type Department Care Team Description 05/01/2024 Documentation [facility] Medicine [address]th [place] [address] [place] [address] Marge Brantley LPN 04/24/2024 Orders Only [facility] Scanning, Provider 04/24/2024 Telephone [facility] [address] [place] [address] [address]th [place] [address] [place] [address] Marge Brantley LPN 04/23/2024 Documentation [facility] [address]th [place] [address] [place] [address] Marge Brantley LPN 04/19/2024 8:55 AM BRAZER CONTROLLED ATMOSPHERIC FURNACE Lab [facility] [address] [place] [address] [address] [place] [address] Hepatic cirrhosis, unspecified hepatic cirrhosis type, unspecified whether ascites present (HCC) 04/19/2024 8:20 AM BRAZER CONTROLLED ATMOSPHERIC FURNACE Office Visit [facility] [address] [facility] 2nd Floor [address] [place] [address] Eneida Hilario, KATHRIN Hepatic cirrhosis, unspecified hepatic cirrhosis type, unspecified whether ascites present (HCC) (Primary Dx) 04/19/2024 Telephone [facility] [address] [place] [address] Eneida Hilario NP 04/18/2024 Telephone [facility] [address] [facility] 12th [place] [address] [place] [address] Marge Brantley LPN 04/17/2024 Telephone [facility] [address] [facility] 12th [place] [address] [place] [address] Nawaf Disla RN from Last 3 Months [...] on file Legal Sex Male 1:46 AM BRAZER CONTROLLED ATMOSPHERIC FURNACE Gender Identity Not on file Sexual Orientation Not on file Obstetrics History Last Filed Vital Signs Vital Sign Reading Time Taken Comments Blood Pressure 117/77 04/19/2024 8:13 AM BRAZER CONTROLLED ATMOSPHERIC FURNACE Pulse 83 04/19/2024 8:13 AM BRAZER CONTROLLED ATMOSPHERIC FURNACE Temperature 36.4 C (97.6 F) 04/19/2024 8:13 AM BRAZER CONTROLLED ATMOSPHERIC FURNACE Respiratory Rate 12 05/31/2023 9:54 AM CDT Oxygen Saturation 96% 04/19/2024 8:13 AM BRAZER CONTROLLED ATMOSPHERIC FURNACE Inhaled Oxygen Concentration - - Weight 93.3 kg (205 lb 9.6 oz) 04/19/2024 8:13 A M BRAZER CONTROLLED ATMOSPHERIC FURNACE Height 177.8 cm (5' 10 ) 04/19/2024 8:13 AM BRAZER CONTROLLED ATMOSPHERIC FURNACE Body Mass Index 29.5 04/19/2024 8:13 AM BRAZER CONTROLLED ATMOSPHERIC FURNACE Plan of Treatment Health Maintenance Due Date [...] Comments GI - RESULT 04/24/2024 6:54 PM BRAZER CONTROLLED ATMOSPHERIC FURNACE PROTIME-INR Routine 04/19/2024 9:42 AM BRAZER CONTROLLED ATMOSPHERIC FURNACE Hepatic cirrhosis, unspecified hepatic cirrhosis type, unspecified whether ascites present (HCC) EGFR Routine 04/19/2024 9:41 AM BRAZER CONTROLLED ATMOSPHERIC FURNACE Hepatic cirrhosis, unspecified hepatic cirrhosis type, unspecified whether ascites present (HCC) DIFFERENTIAL AUTO Routine 04/19/2024 9:4 1 AM BRAZER CONTROLLED ATMOSPHERIC FURNACE Hepatic cirrhosis, unspecified hepatic cirrhosis type, unspecified whether ascites present (HCC) PHOSPHATIDYLETHANOL Routine 04/19/2024 9 :41 AM BRAZER CONTROLLED ATMOSPHERIC FURNACE Hepatic cirrhosis, unspecified hepatic cirrhosis type, unspecified whether ascites present (HCC) CBC WITH AUTO DIFFERENTIAL Routine 04/19 9:41 AM BRAZER CONTROLLED ATMOSPHERIC FURNACE Hepatic cirrhosis, unspecified hepatic cirrhosis type, unspecified whether ascites present (HCC) COMPREHENSIVE METABOLIC PANEL Routine 04/19/2024 9:41 AM BRAZER CONTROLLED ATMOSPHERIC FURNACE Hepatic cirrhosis, unspecified hepatic cirrhosis type, unspecified whether ascites present (HCC) [id number], TUMOR MARKER Routine 04/19/2024 9:41 AM BRAZER CONTROLLED ATMOSPHERIC FURNACE Hepatic cirrhosis, unspecified hepatic cirrhosis type, unspecified whether ascites present (HCC) HEPATITIS C RNA, QUANTITATIVE, PCR Routine 04/19/2024 9:41 AM BRAZER CONTROLLED ATMOSPHERIC FURNACE Hepatic cirrhosis, unspecified hepatic cirrhosis type, unspecified whether ascites present (HCC) from Last 3 Months Results * GI - RESULT (04/24/2024 6:54 PM BRAZER CONTROLLED ATMOSPHERIC FURNACE) Anatomical Region Laterality Modality Other us Provider Scanning Final Result * Protime-INR (04/19/2024 9:42 AM BRAZER CONTROLLED ATMOSPHERIC FURNACE) PT 12.6 9.7 - 13.0 sec INR 1.16 0.90 - 1.20 THIEN TAVERAS Comment: Interpretive data Oral anticoagulant therapeutic ranges: Venous thromboembolism prophylaxis or treatment: 2.0-3.0 CARDIOLOGY Standard range: 2.0-3.0 High-intensity range: 2.5-3.5 Refer to indication-specific guidelines for appropriate target ranges for prosthetic heart valve replacement. Current interpretive data was last revised on 2019. Blood 04/19/2024 9:42 AM BRAZER CONTROLLED ATMOSPHERIC FURNACE 04/19/2024 11:54 AM BRAZER CONTROLLED ATMOSPHERIC FURNACE us Eneida Hilario NP LAB BLOOD ORDERABLES Final Result [facility] [place] [address] * Phosphatidylethanol (04/19/2024 9:41 AM BRAZER CONTROLLED ATMOSPHERIC FURNACE) PHOSPHATIDYLETHANOL Positive . [facility] Comment: ADDITIONAL INFORMATION This report is intended for use in clinical monitoring and management of patients. It is not intended for use in employment-related testing. This test was developed and its performance characteristics determined by [facility] in a manner consistent with CLIA requirements. This test has not been cleared or approved by the U.S. Food and Drug Administration. Test Performed by: [facility] - [facility] [address] [place] [address] Water Resource Engineer: Justa Winters Ph.D.; CLIA# [id number] PEth 16:0/18:1 (POPEth)by LC-MS/MS 227 Cutoff: 10 [...] a week) (Reference: August Novak and Terri Micahel 2018 J. Forensic Sci) Phosphatidylethanol 16:0/18:2 (PLPEth) by LC-MS/MS 204 Cutoff: 10 ng/mL THIEN AREVALO Comment: PEth 16:0/18:2 (PLPEth) Reference ranges are not well established Blood 04/19/2024 9:41 AM BRAZER CONTROLLED ATMOSPHERIC FURNACE 04/19/2024 12:16 PM BRAZER CONTROLLED ATMOSPHERIC FURNACE us Eneida Hilario NP LAB BLOOD ORDERABLES Final Result [facility] TAV[facility] [place] [address] [facility] * eGFR (04/19/2024 9:41 AM BRAZER CONTROLLED ATMOSPHERIC FURNACE) eGFR >90 >=60 mL/min/1. 73 m2 Comment: [...] last reviewed 2021. Blood 04/19/2024 9:41 AM BRAZER CONTROLLED ATMOSPHERIC FURNACE 04/19/2024 12:11 PM BRAZER CONTROLLED ATMOSPHERIC FURNACE us Eneida Hilario NP LAB BLOOD ORDERABLES Final Result [facility] [place] [address] * Differential, auto (04/19/2024 9:41 AM BRAZER CONTROLLED ATMOSPHERIC FURNACE) Neutrophil abs 5.2 1.5 - 6.5 K/cumm Imm gran abs 0.0 0.0 - 0.1 K/cumm [facility] Lymphocyte abs 1.7 0.8 - 3.3 K/cumm [facility] Monocyte abs 0.8 0.2 - 0.8 K/cumm [facility] Eosinophil abs 0.2 0.0 - 0.5 K/cumm [facility] Basophil abs 0.0 0.0 - 0.1 K/cumm [facility] Neutrophil pct 65.1 % [facility] Comment: Interpretive Data Percent cell count reference ranges are not reported, since discordance with absolute values may lead to misinterpretation of CBC data. Current Interpretive Data was last revised on 2017. Imm gran pct 0.4 % [facility] Comment: Interpretive Data Percent cell count reference ranges are not reported, since discordance with absolute values may lead to misinterpretation of CBC data. Current Interpretive Data was last revised on 2017. Lymphocyte pct 21.5 % [facility] Comment: Interpretive Data Percent cell count reference ranges are not reported, since discordance with absolute values may lead to misinterpretation of CBC data. Current Interpretive Data was last revised on 2017. Monocyte pct 10.3 % [facility] Comment: Interpretive Data Percent cell count reference ranges are not reported, since discordance with absolute values may lead to misinterpretation of CBC data. Current Interpretive Data was last revised on 2017. Eosinophil pct 2.3 % [facility] Comment: Interpretive Data Percent cell count reference ranges are not reported, since discordance with absolute values may lead to misinterpretation of CBC data. Current Interpretive Data was last revised on 2017. Basophil pct 0.4 % [facility] Comment: Interpretive Data Percent cell count reference ranges are not reported, since discordance with absolute values may lead to misinterpretation of CBC data. Current Interpretive Data was last revised on 2017. Blood 04/19/2024 9:41 AM BRAZER CONTROLLED ATMOSPHERIC FURNACE 04/19/2024 11:53 AM BRAZER CONTROLLED ATMOSPHERIC FURNACE Eneida Hilario NP LAB BLOOD ORDERABLES Final Result [facility] [place] [address] * CBC with auto differential (04/19/2024 9:41 AM BRAZER CONTROLLED ATMOSPHERIC FURNACE) WBC 8.0 3.8 - 9.9 K/cumm Hgb 14.4 13.0 - 17.5 g/dL [facility] Hct 42.0 38.9 - 50.3 % [facility] Plt 198 150 - 400 K/cumm [facility] MPV 10.1 9.1 - 12.3 fL [facility] RBC 4.63 4.30 - 5.80 M/cumm [facility] MCV 90.7 81.3 - 96.4 fL [facility] MCH 31.1 27.1 - 33.3 pg [facility] MCHC 34.3 32.3 - 35.7 g/dL [facility] RDW CV 13.3 11.1 - 14.9 % [facility] RDW SD 44.5 35.7 - 48.1 fL [facility] NRBC abs 0.00 0.00 - 0.01 K/cumm [facility] Blood 04/19/2024 9:41 AM BRAZER CONTROLLED ATMOSPHERIC FURNACE 04/19/2024 11:53 AM BRAZER CONTROLLED ATMOSPHERIC FURNACE us Eneida Tobin Yanelis [employer]UT[employer] DIRECTOR LAB BLOOD ORDERABLES Final Result Performing Organization Address [facility] Co de Phone Number [facility] [place] [place] [address] * [id number], Tumor Marker (04/19/2024 9:41 AM BRAZER CONTROLLED ATMOSPHERIC FURNACE) Pathologist [facility] alpha Fetoprotein <2.0 <=8.3 ng/mL Comment: Interpretive [...] 2018;[id number] Veronica Tovar et al. Clin Chem 2014;[id number]. Current interpretive data was last revised 2021. Blood 04/19/2024 9:41 AM BRAZER CONTROLLED ATMOSPHERIC FURNACE 04/19/2024 11:54 AM BRAZER CONTROLLED ATMOSPHERIC FURNACE us Eneida Tobin Yanelis PINON LAB BLOOD ORDERABLES Final Result Performing Organization Address [facility] Co de Phone Number [facility] [place] [place] [address] * Hepatitis C (HCV) RNA PCR, quantitative Blood (04/19/2024 9:41 AM BRAZER CONTROLLED ATMOSPHERIC FURNACE) Pathologist [facility] HCV RNA result Not Detected [facility] Comment: The quantifiable range of this assay is 15 IU/mL to 100,000,000 IU/mL (1.18 log IU/mL to 8.00 log IU/mL). Testing was performed by the [employer] 6800 HCV Test ([employer] Testing performed at [facility] Current Interpretive Data was last revised on 2020 Blood 04/19/2024 9:41 AM BRAZER CONTROLLED ATMOSPHERIC FURNACE 04/19/2024 1:25 PM BRAZER CONTROLLED ATMOSPHERIC FURNACE us Eneida Hilario NP LAB MICROBIOLOGY - GENERAL ORDERABLES Final Result [facility] [place] [address] [facility] * Comprehensive metabolic panel (04/19/2024 9:41 AM BRAZER CONTROLLED ATMOSPHERIC FURNACE) [facility] Sodium 139 135 - 145 mmol/L Potassium, pl 4.6 3.3 - 4.9 mmol/L [facility] Chloride 99 97 - 110 mmol/L [facility] CO2 32 22 - 32 mmol/L [facility] Anion gap 8 2 - 15 mmol/L [facility] BUN 16 6 - 25 mg/dL [facility] Creatinine 0.82 0.80 - 1.30 mg/dL [facility] Glucose 123 70 - 199 mg/dL [facility] Comment: Interpretive Data Fasting glucose >/= [...] 2022. Calcium 9.6 8.5 - 10.3 mg/dL [facility] Bilirubin, total 0.5 0.1 - 1.2 mg/dL [facility] Protein, pl 8.2 6.5 - 8.5 g/dL [facility] Albumin 3.9 3.5 - 5.0 g/dL [facility] Alk phos 84 40 - 130 Units/L [facility] ALT 19 7 - 55 Units/L [facility] AST 28 10 - 50 Units/L [facility] Blood 04/19/2024 9:41 AM BRAZER CONTROLLED ATMOSPHERIC FURNACE 04/19/2024 11:54 AM BRAZER CONTROLLED ATMOSPHERIC FURNACE us Eneida Hilario NP LAB BLOOD ORDERABLES Final Result [facility] [place] [address] from Last 3 Months Insurance [facility] Address: [address] [address] [place] [address] COMMERCIAL GENERIC [employer] MEDICARE PPO [employer] MEDICARE PPO Advance Directives For more information, please contact: [phone] * Full Code (Latest Code Status on File) Date Activated Date Inactivated Comments 05/10/2023 10:38 PM 05/18/2023 5:43 PM Care Teams Ebd Teacher Relationship Specialty Start Date End Date Ramon Guardado MD PCP - General Family Practice 04/14/23
--- OUTSIDE RECORDS SUMMARY | 2024-07-04 11:44 | XMS_ITS | Referral Summary ---
Author Organization [facility] Address [address] [place] [address] Care Team Providers Care Profile Grinder Name Role Phone Ramon Guardado MD Primary Care Provider [phone] Encounters Date Type Department Care Team Description 05/01/2024 Documentation [facility] [address]th [place] [address] [place] [address] Marge Brantley LPN 04/24/2024 Orders Only [facility] Scanning, Provider 04/24/2024 Telephone [facility] [address]th [place] [address] [place] [address] Marge Brantley LPN 04/23/2024 Documentation [facility] [address] [facility] 12th [place] [address] [place] [address] Marge Brantley LPN 04/19/2024 Telephone [facility] [address] 2nd [address] [place] [address] Eneida Hilario NP 04/19/2024 8:55 AM INFANT BABYSITTER Lab [facility] [address] [place] [address] [address] [place] [address] Hepatic cirrhosis, unspecified hepatic cirrhosis type, unspecified whether ascites present (HCC) 04/19/2024 8:20 AM INFANT BABYSITTER Office Visit [facility] [address] 2nd [address] [place] [address] Eneida Hilario, KATHRIN Hepatic cirrhosis, unspecified hepatic cirrhosis type, unspecified whether ascites present (HCC) (Primary Dx) 04/18/2024 Telephone [facility] [address] [facility] 12th [place] [address] [place] [address] Fercho MargeGERARDO 04/17/2024 Telephone [facility] [address] [facility] 12th [place] [address] [place] [address] Nawaf Disla, CHUN from Last [...] 024 Assessment & Plan (04/19/2024 8:48 AM INFANT BABYSITTER): Mr. Albarran returns for Chronic Hepatitis C [...] show unknown. I will obtain report from [facility] in [place]. #Labs: Patient due for lab work today: [...] 05/16/2023 Assessment & Plan (05/16/2023 11:37 AM INFANT BABYSITTER): - monitor - R/T hx ETOH abuse Alcohol abuse 05/11/2023 Assessment & Plan (05/11/2023 12:05 PM INFANT BABYSITTER): admits to 6-12 beers + some hard [...] #Variceal Screening: Last colonoscopy was performed at [facility] 2-3 years ago per patient. Results show unknown. Fibroscan 07/11/2023: kPa 32.1, CAP 267 suggestive of normal moderate steatosis, very high fibrosis. Baveno Criteria, kPa > 20 or Platelet count > 150K , recommend EGD for variceal surveillance. He is to get EGD/Colonoscopy scheduled at [facility]. We will obtain the reports. #Labs: Last [...] #Variceal Screening: Last colonoscopy was performed at [facility] 2-3 years ago per patient. Results show [...] months. Assessment & Plan (05/13/2023 10:28 AM INFANT BABYSITTER): - Monitor AST/ALT - has seen someone in past at [facility] and has been told that he has cirrhosis - admits to 6-12 beers + some hard liquor a day - denies hx of DT's symptoms - has been at OSH for several days so should be outside the DT window - cont to monitor - consult hepatology for DC recs Empyema lung 05/10/2023 Empyema 05/10/2023 Assessment & Plan (05/17/2023 8:16 AM INFANT BABYSITTER): Patient s/p thoracentesis 05/09 at OSH - Stop Vanc, cefe - start Augmentin - CBC pending - Pt recs for home with family Inguinal hernia 05/17/2011 Resolved Problems Problem Noted Date Diagnosed Date Resolved Date Hyperkalemia 05/16/2023 05/17/2023 Assessment & Plan (05/16/2023 11:36 AM INFANT BABYSITTER): - recheck labs today - monitor Hyponatremia 05/16/2023 05/17/2023 Assessment & Plan (05/16/2023 11:37 AM INFANT BABYSITTER): - mild - monitor Social History Tobacco [...] on file Legal Sex Male 1:46 AM INFANT BABYSITTER Gender Identity Not on file Sexual Orientation Not on file Last Filed Vital Signs Vital Sign Reading Time Taken Comments Blood Pressure 117/77 04/19/2024 8:13 AM INFANT BABYSITTER Pulse 83 04/19/2024 8:13 AM INFANT BABYSITTER Temperature 36.4 C (97.6 F) 04/19/2024 8:13 AM INFANT BABYSITTER Respiratory Rate 12 05/31/2023 9:54 AM CDT Oxygen Saturation 96% 04/19/2024 8:13 AM INFANT BABYSITTER Inhaled Oxygen Concentration - - Weight 93.3 kg (205 lb 9.6 oz) 04/19/2024 8:13 A M INFANT BABYSITTER Height 177.8 cm (5' 10 ) 04/19/2024 8:13 AM INFANT BABYSITTER Body Mass Index 29.5 04/19/2024 8:13 AM INFANT BABYSITTER Plan of Treatment Not on file Procedures Procedure Name Priority Date/Time Associated Diagnosis Comments GI - RESULT 04/24/2024 6:54 PM INFANT BABYSITTER PROTIME-INR Routine 04/19/2024 9:42 AM INFANT BABYSITTER Hepatic cirrhosis, unspecified hepatic cirrhosis type, unspecified whether ascites present (HCC) EGFR Routine 04/19/2024 9:41 AM INFANT BABYSITTER Hepatic cirrhosis, unspecified hepatic cirrhosis type, unspecified whether ascites present (HCC) DIFFERENTIAL AUTO Routine 04/19/2024 9:4 1 AM INFANT BABYSITTER Hepatic cirrhosis, unspecified hepatic cirrhosis type, unspecified whether ascites present (HCC) PHOSPHATIDYLETHANOL Routine 04/19/2024 9 :41 AM INFANT BABYSITTER Hepatic cirrhosis, unspecified hepatic cirrhosis type, unspecified whether ascites present (HCC) CBC WITH AUTO DIFFERENTIAL Routine 04/19 9:41 AM INFANT BABYSITTER Hepatic cirrhosis, unspecified hepatic cirrhosis type, unspecified whether ascites present (HCC) COMPREHENSIVE METABOLIC PANEL Routine 04/19/2024 9:41 AM INFANT BABYSITTER Hepatic cirrhosis, unspecified hepatic cirrhosis type, unspecified whether ascites present (HCC) [id number], TUMOR MARKER Routine 04/19/2024 9:41 AM INFANT BABYSITTER Hepatic cirrhosis, unspecified hepatic cirrhosis type, unspecified whether ascites present (HCC) HEPATITIS C RNA, QUANTITATIVE, PCR Routine 04/19/2024 9:41 AM INFANT BABYSITTER Hepatic cirrhosis, unspecified hepatic cirrhosis type, unspecified whether ascites present (HCC) from Last 3 Months Results * GI - RESULT (04/24/2024 6:54 PM INFANT BABYSITTER) Anatomical Region Laterality Modality Other us Provider Scanning Final Result * Protime-INR (04/19/2024 9:42 AM INFANT BABYSITTER) PT 12.6 9.7 - 13.0 sec INR 1.16 0.90 - 1.20 TH[facility] Comment: Interpretive data Oral anticoagulant therapeutic ranges: Venous thromboembolism prophylaxis or treatment: 2.0-3.0 CARDIOLOGY Standard range: 2.0-3.0 High-intensity range: 2.5-3.5 Refer to indication-specific guidelines for appropriate target ranges for prosthetic heart valve replacement. Current interpretive data was last revised on 2019. Blood 04/19/2024 9:42 AM INFANT BABYSITTER 04/19/2024 11:54 AM INFANT BABYSITTER us Eneida Hilario NP LAB BLOOD ORDERABLES Final Result [facility] [place] [address] * Phosphatidylethanol (04/19/2024 9:41 AM INFANT BABYSITTER) PHOSPHATIDYLETHANOL Positive . [facility] Comment: ADDITIONAL INFORMATION This report is intended for use in clinical monitoring and management of patients. It is not intended for use in employment-related testing. This test was developed and its performance characteristics determined by [facility] in a manner consistent with CLIA requirements. This test has not been cleared or approved by the U.S. Food and Drug Administration. Test Performed by: [place] [address] Desktop Support Engineer: Justa Winters Ph.D.; CLIA# [id number] PEth 16:0/18:1 (POPEth)by LC-MS/MS 227 Cutoff: 10 ng/mL [facility] Comment: Phosphatidylethanol (PEth) homologues result interpretation PEth [...] not well established Blood 04/19/2024 9:41 AM INFANT BABYSITTER 04/19/2024 12:16 PM INFANT BABYSITTER us Eneida Hilario NP LAB BLOOD ORDERABLES Final Result Performing Organization Address City/[facility]/ZIP Co de Phone Number THIEN [facility] [place] [address] [facility] * eGFR (04/19/2024 9:41 AM INFANT BABYSITTER) eGFR >90 >=60 mL/min/1. 73 m2 Comment: [...] last reviewed 2021. Blood 04/19/2024 9:41 AM INFANT BABYSITTER 04/19/2024 12:11 PM INFANT BABYSITTER us Eneida Hilario NP LAB BLOOD ORDERABLES Final Result Performing Organization Address City/[facility]/ZIP Co de Phone Number [facility] [place] [address] * Differential, auto (04/19/2024 9:41 AM INFANT BABYSITTER) Neutrophil abs 5.2 1.5 - 6.5 K/cumm Imm gran abs 0.0 0.0 - 0.1 K/cumm [facility] Lymphocyte abs 1.7 0.8 - 3.3 K/cumm [facility] Monocyte abs 0.8 0.2 - 0.8 K/cumm [facility] Eosinophil abs 0.2 0.0 - 0.5 K/cumm [facility] Basophil abs 0.0 0.0 - 0.1 K/cumm [facility] Neutrophil pct 65.1 % [facility] Comment: Interpretive Data Percent cell count reference ranges are not reported, since discordance with absolute values may lead to misinterpretation of CBC data. Current Interpretive Data was last revised on 2017. Imm gran pct 0.4 % [facility] Comment: Interpretive Data Percent cell count reference ranges are not reported, since discordance with absolute values may lead to misinterpretation of CBC data. Current Interpretive Data was last revised on 2017. Lymphocyte pct 21.5 % [facility] Comment: Interpretive Data Percent cell count reference ranges are not reported, since discordance with absolute values may lead to misinterpretation of CBC data. Current Interpretive Data was last revised on 2017. Monocyte pct 10.3 % [facility] Comment: Interpretive Data Percent cell count reference ranges are not reported, since discordance with absolute values may lead to misinterpretation of CBC data. Current Interpretive Data was last revised on 2017. Eosinophil pct 2.3 % [facility] Comment: Interpretive Data Percent cell count reference ranges are not reported, since discordance with absolute values may lead to misinterpretation of CBC data. Current Interpretive Data was last revised on 2017. Basophil pct 0.4 % [facility] Comment: Interpretive Data Percent cell count reference ranges are not reported, since discordance with absolute values may lead to misinterpretation of CBC data. Current Interpretive Data was last revised on 2017. Blood 04/19/2024 9:41 AM INFANT BABYSITTER 04/19/2024 11:53 AM INFANT BABYSITTER Eneida Tobin Yanelis [facility] LAB BLOOD ORDERABLES Final Result Performing Organization Address City/[facility] Co de Phone Number [facility] [place] [address] * CBC with auto differential (04/19/2024 9:41 AM INFANT BABYSITTER) [facility] WBC 8.0 3.8 - 9.9 K/cumm Hgb 14.4 13.0 - 17.5 g/dL [facility] Hct 42.0 38.9 - 50.3 % [facility] Plt 198 150 - 400 K/cumm [facility] MPV 10.1 9.1 - 12.3 fL [facility] RBC 4.63 4.30 - 5.80 M/cumm [facility] MCV 90.7 81.3 - 96.4 fL [facility] MCH 31.1 27.1 - 33.3 pg [facility] MCHC 34.3 32.3 - 35.7 g/dL [facility] RDW CV 13.3 11.1 - 14.9 % [facility] RDW SD 44.5 35.7 - 48.1 fL [facility] NRBC abs 0.00 0.00 - 0.01 K/cumm [facility] Blood 04/19/2024 9:41 AM INFANT BABYSITTER 04/19/2024 11:53 AM INFANT BABYSITTER Eneida Tobin Yanelis [facility] LAB BLOOD ORDERABLES Final Result Performing Organization Address City/[facility]/ZIP Co de Phone Number [facility] [place] [address] * [id number], Tumor Marker (04/19/2024 9:41 AM INFANT BABYSITTER) [facility] alpha Fetoprotein <2.0 <=8.3 ng/mL Comment: Interpretive [...] 2018;[id number] Veronica Tovar et al. Clin Chem 2014;9291-3567. Current interpretive data was last revised 2021. Blood 04/19/2024 9:41 AM INFANT BABYSITTER 04/19/2024 11:54 AM INFANT BABYSITTER Eneida Hilario NP LAB BLOOD ORDERABLES Final Result Performing Organization Address [facility] de Phone Number [facility] [place] [employer] [place] [address] * Hepatitis C (HCV) RNA PCR, quantitative Blood (04/19/2024 9:41 AM INFANT BABYSITTER) [facility] HCV RNA result Not Detected [facility] Comment: The quantifiable range of this assay is 15 IU/mL to 100,000,000 IU/mL (1.18 log IU/mL to 8.00 log IU/mL). Testing was performed by the [employer] 6800 HCV Test ([employer] Testing performed at [facility] Current Interpretive Data was last revised on 2020 Blood 04/19/2024 9:41 AM INFANT BABYSITTER 04/19/2024 1:25 PM INFANT BABYSITTER Eneida Hilario NP LAB MICROBIOLOGY - GENERAL ORDERABLES Final Result Performing Organization Address City/[facility]/ZIP Co de Phone Number [facility] [place] [place] [address] [facility] * Comprehensive metabolic panel (04/19/2024 9:41 AM INFANT BABYSITTER) Sodium 139 135 - 145 mmol/L Potassium, pl 4.6 3.3 - 4.9 mmol/L [facility] Chloride 99 97 - 110 mmol/L [facility] CO2 32 22 - 32 mmol/L [facility] Anion gap 8 2 - 15 mmol/L [facility] BUN 16 6 - 25 mg/dL [facility] Creatinine 0.82 0.80 - 1.30 mg/dL [facility] Glucose 123 70 - 199 mg/dL [facility] Comment: Interpretive Data Fasting glucose >/= 126 [...] 2022. Calcium 9.6 8.5 - 10.3 mg/dL [facility] Bilirubin, total 0.5 0.1 - 1.2 mg/dL [facility] Protein, pl 8.2 6.5 - 8.5 g/dL [facility] Albumin 3.9 3.5 - 5.0 g/dL [facility] Alk phos 84 40 - 130 Units/L [facility] ALT 19 7 - 55 Units/L [facility] AST 28 10 - 50 Units/L [facility] Blood 04/19/2024 9:41 AM INFANT BABYSITTER 04/19/2024 11:54 AM INFANT BABYSITTER us Eneida Hilario NP LAB BLOOD ORDERABLES Final Result [facility] [place] [address] from Last 3 Months Insurance IDPA MEDICARE [facility] Address: [address] [address] [place] [address] COMMERCIAL GENERIC HUMANA CHOICE MEDICARE PPO HU[employer]NA CHOICE MEDICARE PPO Advance Directives For more information, please contact: [phone] * Full Code (Latest Code Status on File) Date Activated Date Inactivated Comments 05/10/2023 10:38 PM 05/18/2023 5:43 PM Care Teams Profile Grinder Relationship Specialty Start Date End Date Ramon Guardado MD PCP - General Family Practice 04/14/23
--- OUTSIDE RECORDS SUMMARY | 2024-07-04 11:44 | XMS_ITS | Encounter Summary ---
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
--- OUTSIDE RECORDS SUMMARY | 2024-07-04 11:44 | XMS_ITS | Clinical Summary ---
Author Organization [facility] Address [address], [address] [address] Phone Care Team Providers Care Mcat Instructor Name Role Phone Guy Madison MD Primary Care Provider [phone] Medications polyethylene glycol (MIRALAX) Powder Mix the entire bottle with 64 oz of a clear liquid. Use as directed by the office for colonoscopy prep. 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 PLAN Care Teams Mcat Instructor Relationship Specialty Start Date End Date Guy Madison MD [address] [facility] [address] [place] [address] PCP - General Internal Medicine 05/13/16
--- OUTSIDE RECORDS SUMMARY | 2024-07-04 11:44 | XMS_ITS | Continuity of Care Document ---
Author Organization [facility] Address [address] [place] [address] [place] [address] Phone Care Team Providers Care Maintenance Team Member Name Role Phone Jerald Gar MD Unavailable [...] Diagnoses Date Provider Providers Copied on Encounter [facility], [address], [place], [id number], tel:[phone] [facility] Medicine No Information 3 [address]ques. [address], [place], [address] , [place]. tel:[phone] Referring Provider: Amador Carrizales [address], [place], [place], [address]. tel:[phone] OFFICE/OUTPA TIENT VISIT, [facility], [address], [place], [place], [address], [place] tel:[phone] [facility] scapular pain (chief complaint) chronic pain (chief complaint) ED (chief complaint) anemia (chief complaint) Dietary surveillance and counselingAnemiaEre ctile DysfunctionPain in joint involving lower legNondependent alcohol abuse, unspecified drinking behavior Srikanth-0 5 3 [address]ques. [address], [place], [place], [address] , [place]. tel:[phone] Referring Provider: Amador Carrizales [address], [place], [place], [address]. tel:[phone] OFFICE/OUTPA TIENT VISIT, [facility], [facility] [address], [place], [place], [address], [place] tel:[phone] [facility] chronic pain (chief complaint) Dietary surveillance and counselingAnemiaCHR ONIC PAIN NEC July-0 3 3 [address]ques. [address], [place], [place], [address] , [place]. tel:[phone] Referring Provider: Am[address] Carrizales [address], [place], [place], [address]. tel:[phone] OFFICE/OUTPA TIENT VISIT, [facility], [address], [place], [place], [address], [place] tel:[phone] [facility] chronic pain (chief complaint) Anemia (chief complaint) Dietary surveillance and counselingCHRONIC PAIN NECAnemiaInsomnia, Other Apr-0 8 3 [address] Marques. [address], [place], [place], [address] , [place]. tel:[phone] Referring Provider: Amador Carrizalse [address], [place], [place], [address]. tel:[phone] OFFICE/OUTPA TIENT VISIT, [facility], [address], [place], [place], [address], [place] [phone] [facility] Medicine Chronic pain (chief complaint) Insomnia (chief complaint) Ed (chief complaint) Dietary surveillance and counselingCHRONIC PAIN NECAnemiaInsomnia, Other 3 [address]ques. [address], [address], [place], [place], [address] , [place]. [phone] Referring Provider: Jerald Gar, [address], [place], [place], [address]. tel:[phone] PREV VISIT, EST, AGE 40-64 [facility], [address], [place], [place], [address], [place] [phone] [facility] Physical (chief complaint) Dietary surveillance and counselingRoutine Medical ExamCHRONIC PAIN NECNondependent alcohol abuse, unspecified drinking behaviorRoutine Medical Exam 3 Cong Marques. [address], [address], [place], [place], [address] , [place]. [phone] Referring Provider: Amador Carrizales [address], [place], [place], [address]. tel:[phone] OFFICE/OUTPA TIENT VISIT, [facility], [address], [place], [place], [address], [place] [phone] [facility] foot pain (chief complaint) chronic pain (chief complaint) Pain in joint involving lower legDietary surveillance and counselingAnemiaNon dependent alcohol abuse, unspecified drinking behavior 3 Cong Marques. [address], [place], [place], [address] , [place]. [phone] Referring Provider: Amador Carrizales [address], [place], [place], [address]. tel:[phone] OFFICE/OUTPA TIENT VISIT, [facility], [address], [place], [place], [address], [place] tel:[phone] [facility] chronic pain (chief complaint) ED (chief complaint) anemia (chief complaint) Dietary surveillance and counselingCHRONIC PAIN NECAnemiaErectile DysfunctionNondepen dent alcohol abuse, unspecified drinking behavior 2 Cong Marques. [address], [place], [place], [address] , [place]. [phone] Referring Provider: Jerald Gar, [address], [place], [place], [address]. tel:[phone] OFFICE/OUTPA TIENT VISIT, [facility], [address], [place], [place], [address], [place] [phone] [facility] Medicine chornic pain (chief complaint) insomnia (chief complaint) Dietary surveillance and counselingCHRONIC PAIN NECInsomnia, OtherErectile Dysfunction 2 Cong Marques. [address], [place], [place], [address] , [place]. [phone] Family History Family Member Type Diagnosis Age At Onset Mother Problem (finding) Alive and well Brother Problem (finding) Alive and well Father Problem (finding) Alive and well Payers Payer name Insurance type Covered libertarian ID Authoriza tion(s) No Information Social History [...]
--- OUTSIDE RECORDS SUMMARY | 2024-07-04 11:44 | XMS_ITS | Encounter Summary ---
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
== END 2024-07-04 10:09 | disposition home or self-care (01) ==
LOC: ANHCARD 10:17
PROVIDERS: PCP Family Medicine; Visit Provider Internal Medicine Cardiovascular Disease
DX: Z01.810 Encounter for preprocedural cardiovascular examination (principal)
CPT/HCPCS: 78452; 93017; A9502; J2785

== ENCOUNTER 2024-07-05 10:52 | Outpatient (CLI) | payer MEDICARE, SELFPAY ==
[2024-07-05 11:17] LABS: Basophils Absolute Auto 0.1 K/mm3 (0.0-0.1); Basophils Percent Auto 0.7 % (0.2-1.2); Eosinophils Absolute Auto 0.3 K/mm3 (0-0.3); Eosinophils Percent Auto 3.5 % (0-4.4); Hematocrit 44.9 % (42.0-52.0); Hemoglobin 15.2 g/dL (14.0-18.0); Immature Granulocyte Absolute 0.03 K/mm3 (0.00-0.031); Immature Granulocyte Percent A 0.3 % (0-0.5); Lymphocytes Absolute Auto 3.31 K/mm3 (0.9-3.2); Mean Corpuscular HGB Conc 33.9 g/dl (32-36); Mean Corpuscular Volume 91.6 fl (80-100); Mean Platelet Volume 9.7 fl (7.4-10.4); Monocytes Absolute Auto 0.8 K/mm3 (0.1-0.6); Monocytes Percent Auto 9.4 % (2.6-8.5); Neutrophils Absolute Auto 4.4 K/mm3 (1.3-6.7); Neutrophils Percent Auto 49.1 % (45.5-73.1); Platelet Count Result 245 k/mm3 (150-375); Red Cell Distribution Width 13.4 % (11.5-14.5)
[2024-07-05 11:32] LABS: Alanine Aminotransferase 24 U/L (6-50); Albumin Level 4.6 g/dL (3.5-5.1); Alkaline Phosphatase 81 U/L (38-126); Anion Gap 5 mmol/L (4-12); Aspartate Amino Transferase 29 U/L (17-59); Bilirubin,Total 1.2 mg/dL (0.2-1.3); Blood Urea Nitrogen 26 mg/dL (9-20); Calcium 9.3 mg/dL (8.4-10.2); Carbon Dioxide 31 mmol/L (22-30); Chloride 103 mmol/L (98-107); Cholesterol 152 mg/dL (0-200); Estimated Glomerular Filt Rate > 60; Glucose 115 mg/dL (65-110); HDL Direct 64 mg/dL; Potassium 4.4 mmol/L (3.4-5.0); Sodium 139 mmol/L (137-145); Triglycerides 119 mg/dL (<150)
[2024-07-05 11:43] LABS: LDL Cholesterol Direct 50 mg/dL
[2024-07-05 12:01] LABS: Prostate Specific Antigen 2.7 ng/mL (< OR = 4.0)
--- OUTSIDE RECORDS SUMMARY | 2024-07-05 12:19 | XMS_ITS | Clinical Summary ---
Author Organization [facility] Address [address], [address] [address] Phone Care Team Providers Care Powder Coater Name Role Phone Guy Madison MD Primary Care Provider [phone] Medications polyethylene glycol (MIRALAX) Powder Mix the entire bottle with 64 oz of a clear liquid. Use as directed by the office for colonoscopy prep. 255 g 8 Active Social History Tobacco Use Types Packs/Day Years Used Date Smoking Tobacco: Never Assessed Sex and Gender Information Value Date Recorded Sex Assigned at Not on file Legal Sex Male 3:53 PM [facility] Gender Identity Not on file Sexual Orientation [...] Recently Relevant to Health Maintenance Insurance MEDICAID [facility] Care Teams Powder Coater Relationship Specialty Start Date End Date Guy Madison MD [address] [facility] [address] [place] [address] PCP - General Internal Medicine 05/13/16
--- OUTSIDE RECORDS SUMMARY | 2024-07-05 12:19 | XMS_ITS | Clinical Summary ---
Author Organization [facility] Address [address] [place] [address] Care Team Providers Care Metal Rivet Machine Operator Name Role Phone Ramon Guardado MD Primary Care Provider [phone] Allergies No known active allergies Medications gabapentin [...] 024 Assessment & Plan (04/19/2024 8:48 AM JEWELRY INSPECTOR): Mr. Albarran returns for Chronic Hepatitis C [...] show unknown. I will obtain report from [facility] in [place]. #Labs: Patient due for lab work today: [...] 05/16/2023 Assessment & Plan (05/16/2023 11:37 AM JEWELRY INSPECTOR): - monitor - R/T hx ETOH abuse Alcohol abuse 05/11/2023 Assessment & Plan (05/11/2023 12:05 PM JEWELRY INSPECTOR): admits to 6-12 beers + some hard [...] #Variceal Screening: Last colonoscopy was performed at [facility] 2-3 years ago per patient. Results show unknown. Fibroscan 07/11/2023: kPa 32.1, CAP 267 suggestive of normal moderate steatosis, very high fibrosis. Baveno Criteria, kPa > 20 or Platelet count > 150K , recommend EGD for variceal surveillance. He is to get EGD/Colonoscopy scheduled at [facility]. We will obtain the reports. [...] #Variceal Screening: Last colonoscopy was performed at [facility] 2-3 years ago per patient. [...] months. Assessment & Plan (05/13/2023 10:28 AM JEWELRY INSPECTOR): - Monitor AST/ALT - has seen someone in past at [facility] and has been told that he has cirrhosis - admits to 6-12 beers + some hard liquor a day - denies hx of DT's symptoms - has been at OSH for several days so should be outside the DT window - cont to monitor - consult hepatology for DC recs Empyema lung 05/10/2023 Empyema 05/10/2023 Assessment & Plan (05/17/2023 8:16 AM JEWELRY INSPECTOR): Patient s/p thoracentesis 05/09 at OSH - Stop Vanc, cefe - start Augmentin - CBC pending - Pt recs for home with family Inguinal hernia 05/17/2011 Resolved Problems Problem Noted Date Diagnosed Date Resolved Date Hyperkalemia 05/16/2023 05/17/2023 Assessment & Plan (05/16/2023 11:36 AM JEWELRY INSPECTOR): - recheck labs today - monitor Hyponatremia 05/16/2023 05/17/2023 Assessment & Plan (05/16/2023 11:37 AM JEWELRY INSPECTOR): - mild - monitor Encounters Date Type Department Care Team Description 05/01/2024 Documentation [facility] Medicine 12th [place] [address] [place] [address] Marge Brantley LPN 04/24/2024 Orders Only [facility] Scanning, Provider 04/24/2024 Telephone [facility] [address] [place] [address] 12th [place] [address] [place] [address] Marge Brantley LPN 04/23/2024 Documentation [facility] 12th [place] [address] [place] [address] Marge Brantley LPN 04/19/2024 8:55 AM JEWELRY INSPECTOR Lab [facility] [address] [place] [address] [address] [place] [address] Hepatic cirrhosis, unspecified hepatic cirrhosis type, unspecified whether ascites present (HCC) 04/19/2024 8:20 AM JEWELRY INSPECTOR Office Visit [facility] [address] [facility] 2[address] [place] [address] Eneida Hilario, KATHRIN Hepatic cirrhosis, unspecified hepatic cirrhosis type, unspecified whether ascites present (HCC) (Primary Dx) 04/19/2024 Telephone [facility] [address] [place] [address] Eneida Hilario NP 04/18/2024 Telephone [facility] [address] [facility] 12th [place] [address] [place] [address] Marge Brantley LPN 04/17/2024 Telephone [facility] [address] [facility] [address]th [place] [address] [place] [phone] Nawaf Disla RN from Last 3 Months [...] on file Legal Sex Male 1:46 AM JEWELRY INSPECTOR Gender Identity Not on file Sexual Orientation Not on file Obstetrics History Last Filed Vital Signs Vital Sign Reading Time Taken Comments Blood Pressure 117/77 04/19/2024 8:13 AM JEWELRY INSPECTOR Pulse 83 04/19/2024 8:13 AM JEWELRY INSPECTOR Temperature 36.4 C (97.6 F) 04/19/2024 8:13 AM JEWELRY INSPECTOR Respiratory Rate 12 05/31/2023 9:54 AM CDT Oxygen Saturation 96% 04/19/2024 8:13 AM JEWELRY INSPECTOR Inhaled Oxygen Concentration - - Weight 93.3 kg (205 lb 9.6 oz) 04/19/2024 8:13 A M JEWELRY INSPECTOR Height 177.8 cm (5' 10 ) 04/19/2024 8:13 AM JEWELRY INSPECTOR Body Mass Index 29.5 04/19/2024 8:13 AM JEWELRY INSPECTOR Plan of Treatment Health Maintenance Due Date [...] Comments GI - RESULT 04/24/2024 6:54 PM JEWELRY INSPECTOR PROTIME-INR Routine 04/19/2024 9:42 AM JEWELRY INSPECTOR Hepatic cirrhosis, unspecified hepatic cirrhosis type, unspecified whether ascites present (HCC) EGFR Routine 04/19/2024 9:41 AM JEWELRY INSPECTOR Hepatic cirrhosis, unspecified hepatic cirrhosis type, unspecified whether ascites present (HCC) DIFFERENTIAL AUTO Routine 04/19/2024 9:4 1 AM JEWELRY INSPECTOR Hepatic cirrhosis, unspecified hepatic cirrhosis type, unspecified whether ascites present (HCC) PHOSPHATIDYLETHANOL Routine 04/19/2024 9 :41 AM JEWELRY INSPECTOR Hepatic cirrhosis, unspecified hepatic cirrhosis type, unspecified whether ascites present (HCC) CBC WITH AUTO DIFFERENTIAL Routine 04/19 9:41 AM JEWELRY INSPECTOR Hepatic cirrhosis, unspecified hepatic cirrhosis type, unspecified whether ascites present (HCC) COMPREHENSIVE METABOLIC PANEL Routine 04/19/2024 9:41 AM JEWELRY INSPECTOR Hepatic cirrhosis, unspecified hepatic cirrhosis type, unspecified whether ascites present (HCC) [id number], TUMOR MARKER Routine 04/19/2024 9:41 AM JEWELRY INSPECTOR Hepatic cirrhosis, unspecified hepatic cirrhosis type, unspecified whether ascites present (HCC) HEPATITIS C RNA, QUANTITATIVE, PCR Routine 04/19/2024 9:41 AM JEWELRY INSPECTOR Hepatic cirrhosis, unspecified hepatic cirrhosis type, unspecified whether ascites present (HCC) from Last 3 Months Results * GI - RESULT (04/24/2024 6:54 PM JEWELRY INSPECTOR) Anatomical Region Laterality Modality Other us Provider Scanning Final Result * Protime-INR (04/19/2024 9:42 AM JEWELRY INSPECTOR) PT 12.6 9.7 - 13.0 sec INR 1.16 0.90 - 1.20 [facility] Comment: Interpretive data Oral anticoagulant therapeutic ranges: Venous thromboembolism prophylaxis or treatment: 2.0-3.0 CARDIOLOGY Standard range: 2.0-3.0 High-intensity range: 2.5-3.5 Refer to indication-specific guidelines for appropriate target ranges for prosthetic heart valve replacement. Current interpretive data was last revised on 2019. Blood 04/19/2024 9:42 AM JEWELRY INSPECTOR 04/19/2024 11:54 AM JEWELRY INSPECTOR us Eneida Hilario NP LAB BLOOD ORDERABLES Final Result [facility] Department [place] [address] * Phosphatidylethanol (04/19/2024 9:41 AM JEWELRY INSPECTOR) PHOSPHATIDYLETHANOL Positive . [facility] Comment: ADDITIONAL INFORMATION This report is intended for use in clinical monitoring and management of patients. It is not intended for use in employment-related testing. This test was developed and its performance characteristics determined by [facility] in a manner consistent with CLIA requirements. This test has not been cleared or approved by the U.S. Food and Drug Administration. Test Performed by: [facility] [address] [place] [address] Medical Economics Consultant: Justa Winters Ph.D.; CLIA# [id number] PEth 16:0/18:1 (POPEth)by LC-MS/MS 227 Cutoff: 10 [...] not well established Blood 04/19/2024 9:41 AM JEWELRY INSPECTOR 04/19/2024 12:16 PM JEWELRY INSPECTOR us Eneida Hilario NP LAB BLOOD ORDERABLES Final Result [facility] Department [place] [address] [facility] * eGFR (04/19/2024 9:41 AM JEWELRY INSPECTOR) eGFR >90 >=60 mL/min/1. 73 m2 Comment: [...] last reviewed 2021. Blood 04/19/2024 9:41 AM JEWELRY INSPECTOR 04/19/2024 12:11 PM JEWELRY INSPECTOR us Eneida Hilario NP LAB BLOOD ORDERABLES Final Result [facility] Department [place] [address] * Differential, auto (04/19/2024 9:41 AM JEWELRY INSPECTOR) Neutrophil abs 5.2 1.5 - 6.5 K/cumm Imm gran abs 0.0 0.0 - 0.1 K/cumm [facility] Lymphocyte abs 1.7 0.8 - 3.3 K/cumm [facility] Monocyte abs 0.8 0.2 - 0.8 K/cumm [facility] Eosinophil abs 0.2 0.0 - 0.5 K/cumm [facility] Basophil abs 0.0 0.0 - 0.1 K/cumm [facility] Neutrophil pct 65.1 % [facility] Comment: Interpretive Data Percent cell count reference ranges are not reported, since discordance with absolute values may lead to misinterpretation of CBC data. Current Interpretive Data was last revised on 2017. Imm gran pct 0.4 % [facility] Comment: Interpretive Data Percent cell count reference ranges are not reported, since discordance with absolute values may lead to misinterpretation of CBC data. Current Interpretive Data was last revised on 2017. Lymphocyte pct 21.5 % [facility] Comment: Interpretive Data Percent cell count reference ranges are not reported, since discordance with absolute values may lead to misinterpretation of CBC data. Current Interpretive Data was last revised on 2017. Monocyte pct 10.3 % [facility] Comment: Interpretive Data Percent cell count reference ranges are not reported, since discordance with absolute values may lead to misinterpretation of CBC data. Current Interpretive Data was last revised on 2017. Eosinophil pct 2.3 % [facility] Comment: Interpretive Data Percent cell count reference ranges are not reported, since discordance with absolute values may lead to misinterpretation of CBC data. Current Interpretive Data was last revised on 2017. Basophil pct 0.4 % [facility] Comment: Interpretive Data Percent cell count reference ranges are not reported, since discordance with absolute values may lead to misinterpretation of CBC data. Current Interpretive Data was last revised on 2017. Blood 04/19/2024 9:41 AM JEWELRY INSPECTOR 04/19/2024 11:53 AM JEWELRY INSPECTOR Eneida Hilario NP LAB BLOOD ORDERABLES Final Result [facility] Department [place] [address] * CBC with auto differential (04/19/2024 9:41 AM JEWELRY INSPECTOR) WBC 8.0 3.8 - 9.9 K/cumm Hgb 14.4 13.0 - 17.5 g/dL [facility] Hct 42.0 38.9 - 50.3 % [facility] Plt 198 150 - 400 K/cumm [facility] MPV 10.1 9.1 - 12.3 fL [facility] RBC 4.63 4.30 - 5.80 M/cumm [facility] MCV 90.7 81.3 - 96.4 fL [facility] MCH 31.1 27.1 - 33.3 pg [facility] MCHC 34.3 32.3 - 35.7 g/dL [facility] RDW CV 13.3 11.1 - 14.9 % [facility] RDW SD 44.5 35.7 - 48.1 fL [facility] NRBC abs 0.00 0.00 - 0.01 K/cumm [facility] Blood 04/19/2024 9:41 AM JEWELRY INSPECTOR 04/19/2024 11:53 AM JEWELRY INSPECTOR us Eneida Tobin Yanelis INSURANCE RISK MANAGER LAB BLOOD ORDERABLES Final Result Performing Organization Address [facility] Co de Phone Number [facility] [place] [address] * [id number], Tumor Marker (04/19/2024 9:41 AM JEWELRY INSPECTOR) Pathologist [facility] alpha Fetoprotein <2.0 <=8.3 ng/mL Comment: Interpretive [...] 2018;[id number] Veronica Tovar et al. Clin Chem [id number]. Current interpretive data was last revised 2021. Blood 04/19/2024 9:41 AM JEWELRY INSPECTOR 04/19/2024 11:54 AM JEWELRY INSPECTOR us Eneida Tobin Yanelis PINON LAB BLOOD ORDERABLES Final Result Performing Organization Address [facility] Co de Phone Number [facility] [place] [address] * Hepatitis C (HCV) RNA PCR, quantitative Blood (04/19/2024 9:41 AM JEWELRY INSPECTOR) Pathologist [facility] HCV RNA result Not Detected [facility] Comment: The quantifiable range of this assay is 15 IU/mL to 100,000,000 IU/mL (1.18 log IU/mL to 8.00 log IU/mL). Testing was performed by the [employer] 6800 HCV Test ([employer] Testing performed at [facility] Current Interpretive Data was last revised on 2020 Blood 04/19/2024 9:41 AM JEWELRY INSPECTOR 04/19/2024 1:25 PM JEWELRY INSPECTOR us Eneida Hilario NP LAB MICROBIOLOGY - GENERAL ORDERABLES Final Result [facility] Department [place] [address] [facility] * Comprehensive metabolic panel (04/19/2024 9:41 AM JEWELRY INSPECTOR) [facility] Sodium 139 135 - 145 mmol/L Potassium, pl 4.6 3.3 - 4.9 mmol/L [facility] Chloride 99 97 - 110 mmol/L [facility] CO2 32 22 - 32 mmol/L [facility] Anion gap 8 2 - 15 mmol/L [facility] BUN 16 6 - 25 mg/dL [facility] Creatinine 0.82 0.80 - 1.30 mg/dL [facility] Glucose 123 70 - 199 mg/dL [facility] Comment: Interpretive Data Fasting glucose >/= [...] 2022. Calcium 9.6 8.5 - 10.3 mg/dL [facility] Bilirubin, total 0.5 0.1 - 1.2 mg/dL [facility] Protein, pl 8.2 6.5 - 8.5 g/dL [facility] Albumin 3.9 3.5 - 5.0 g/dL [facility] Alk phos 84 40 - 130 Units/L [facility] ALT 19 7 - 55 Units/L [facility] AST 28 10 - 50 Units/L [facility] Blood 04/19/2024 9:41 AM JEWELRY INSPECTOR 04/19/2024 11:54 AM JEWELRY INSPECTOR us Eneida Hilario NP LAB BLOOD ORDERABLES Final Result [facility] Department [place] [address] from Last 3 Months Insurance [facility] MEDICARE COMMERCIAL GENERIC [employer] MEDICARE PPO [employer] MEDICARE PPO Advance Directives For more information, please contact: [phone] * Full Code (Latest Code Status on File) Date Activated Date Inactivated Comments 05/10/2023 10:38 PM 05/18/2023 5:43 PM Care Teams Metal Rivet Machine Operator Relationship Specialty Start Date End Date Ramon Guardado MD PCP - General Family Practice 04/14/23
--- OUTSIDE RECORDS SUMMARY | 2024-07-05 12:19 | XMS_ITS | Encounter Summary ---
Author Organization [facility] Address [address] [place] [address] Phone Care Team Providers Care Railroad Inspector Name Role Phone Ramon Guardado MD Primary Care Provider [phone] Encounter Details Date Type Department Care Team [...] on file Legal Sex Male 1:46 AM MANAGER SOCIAL RESPONSIBILITY Gender Identity Not on file Sexual Orientation [...] on filedocumented in this encounter Care Teams Railroad Inspector Relationship Specialty Start Date End Date Ramon Guardado MD PCP - General Family Practice 04/14/23 documented as of this encounter
--- OUTSIDE RECORDS SUMMARY | 2024-07-05 12:19 | XMS_ITS | Encounter Summary ---
Author Organization [facility] Address [address] [place] [address] Phone Care Team Providers Care Practice Specialist Name Role Phone Ramon Guardado MD Primary Care Provider [phone] Encounter Details Date Type Department Care Team [...] file Legal Sex Male 1:46 AM CLINICAL SYSTEMS ANALYST Gender Identity Not on file Sexual [...] on filedocumented in this encounter Care Teams Practice Specialist Relationship Specialty Start Date End Date Ramon Guardado MD PCP - General Family Practice 04/14/23 documented as of this encounter
--- OUTSIDE RECORDS SUMMARY | 2024-07-05 12:19 | XMS_ITS | Continuity of Care Document ---
Author Organization [facility] Address [address] [place] [address] [place] [address] Phone Care Team Providers Care Superintendent Colliery Name Role Phone Jerald Gar MD Unavailable [...] Diagnoses Date Provider Providers Copied on Encounter [facility], [address] [place], [id number], tel:[phone] [facility] Medicine No Information 3 Cong Marques. [address], [address] , [place]. tel:[phone] Referring Provider: Amador Carrizales [address], [place], [place], [address]. tel:[phone] OFFICE/OUTPA TIENT VISIT, [facility], [address], [place], [place], [address], [place] tel:[phone] [facility] scapular pain (chief complaint) chronic pain (chief complaint) ED (chief complaint) anemia (chief complaint) Dietary surveillance and counselingAnemiaEre ctile DysfunctionPain in joint involving lower legNondependent alcohol abuse, unspecified drinking behavior Srikanth-0 5 3 Cong Marques. [address], [place], [place], [address] , [place]. tel:[phone] Referring Provider: Amador Carrizales [address], [place], [place], [address]. tel:[phone] OFFICE/OUTPA TIENT VISIT, [facility], [facility] [address], [place], [place], [address], [place] tel:[phone] [facility] chronic pain (chief complaint) Dietary surveillance and counselingAnemiaCHR ONIC PAIN NEC July-0 3 3 Cong Marques. [address], [place], [place], [address] , [place]. tel:[phone] Referring Provider: Am[address] Carrizales [address], [place], [place], [address]. tel:[phone] OFFICE/OUTPA TIENT VISIT, [facility], [address], [place], [place], [address], [place] tel:[phone] [facility] chronic pain (chief complaint) Anemia (chief complaint) Dietary surveillance and counselingCHRONIC PAIN NECAnemiaInsomnia, Other Apr-0 8 3 Cong Marques. [address], [place], [place], [address] , [place]. tel:[phone] Referring Provider: Amador Carrizales [address], [place], [place], [address]. tel:[phone] OFFICE/OUTPA TIENT VISIT, [facility], [address], [place], [place], [address], [place] [phone] [facility] Medicine Chronic pain (chief complaint) Insomnia (chief complaint) Ed (chief complaint) Dietary surveillance and counselingCHRONIC PAIN NECAnemiaInsomnia, Other 3 Cong Marques. [address], [place], [place], [address] , [place]. [phone] Referring Provider: Jerald Gar, Am[address], [place], [place], [address]. tel:[phone] PREV VISIT, EST, AGE 40-64 [facility], [address], [place], [place], [address], [place] [phone] [facility] Physical (chief complaint) Dietary surveillance and counselingRoutine Medical ExamCHRONIC PAIN NECNondependent alcohol abuse, unspecified drinking behaviorRoutine Medical Exam 3 Cong Marques. [address], [place], [place], [address] , [place]. [phone] Referring Provider: Amador Carrizales [address], [place], [place], [address]. tel:[phone] OFFICE/OUTPA TIENT VISIT, [facility], [address], [place], [place], [address], [place] [phone] [facility] foot pain (chief complaint) chronic pain (chief complaint) Pain in joint involving lower legDietary surveillance and counselingAnemiaNon dependent alcohol abuse, unspecified drinking behavior 3 Cong Marques. [address], [place], [place], [address] , [place]. [phone] Referring Provider: Amador Carrizales [address], [place], [place], [address]. tel:[phone] OFFICE/OUTPA TIENT VISIT, [facility], [address], [place], [place], [address], [place] tel:[phone] [facility] chronic pain (chief complaint) ED (chief complaint) anemia (chief complaint) Dietary surveillance and counselingCHRONIC PAIN NECAnemiaErectile DysfunctionNondepen dent alcohol abuse, unspecified drinking behavior 2 Cong Marques. [address], [place], [place], [address] , [place]. [phone] Referring Provider: Jerald Gar, [address], [place], [place], [address]. tel:[phone] OFFICE/OUTPA TIENT VISIT, [facility], [address], [place], [place], [address], [place] [phone] [facility] Medicine chornic pain (chief complaint) insomnia (chief complaint) Dietary surveillance and counselingCHRONIC PAIN NECInsomnia, OtherErectile Dysfunction 2 Cong Marques. [address], [place], [place], [address] , [place]. [phone] Family History Family Member Type Diagnosis Age At Onset Mother Problem (finding) Alive and well Brother Problem (finding) Alive and well Father Problem (finding) Alive and well Payers Payer name Insurance type Covered constitution party ID Authoriza tion(s) No Information Social History [...]
--- OUTSIDE RECORDS SUMMARY | 2024-07-05 12:19 | XMS_ITS | Referral Summary ---
Author Organization [facility] Address [address] [place] [address] Care Team Providers Care Morning Nanny Name Role Phone Ramon Guardado MD Primary Care Provider [phone] Encounters Date Type Department Care Team Description 05/01/2024 Documentation [facility] Gastroenterology [address] [place] [address] [place] [address] Marge Brantley LPN 04/24/2024 Orders Only [facility] Scanning, Provider 04/24/2024 Telephone [facility] G[facility]enterology [address] [place] [address] [place] [address] Marge Brantley LPN 04/23/2024 Documentation [facility] G[facility]enterology [address] [place] [address] [place] [address] Marge Brantley LPN 04/19/2024 Telephone [facility] Gastroenterology [address] [place] [address] Eneida Hilario NP 04/19/2024 8:55 AM RAILWAY YARD ASSISTANT Lab [facility] [address] [place] [address] [address] [place] [address] Hepatic cirrhosis, unspecified hepatic cirrhosis type, unspecified whether ascites present (HCC) 04/19/2024 8:20 AM RAILWAY YARD ASSISTANT Office Visit [facility] Gastroenterology [address] [place] [address] Eneida Hilario, KATHRIN Hepatic cirrhosis, unspecified hepatic cirrhosis type, unspecified whether ascites present (HCC) (Primary Dx) 04/18/2024 Telephone [facility] Gastroenterology [address] [facility] [address]th [place] [address] [place] [address] Fercho MargeGERARDO 04/17/2024 Telephone [facility] Gastroenterology [address] [place] [address] [place] [address] Nawaf Disla, CHUN from Last [...] 024 Assessment & Plan (04/19/2024 8:48 AM RAILWAY YARD ASSISTANT): Mr. Albarran returns for Chronic Hepatitis C [...] show unknown. I will obtain report from [facility] in [place]. #Labs: Patient due for lab work today: [...] 05/16/2023 Assessment & Plan (05/16/2023 11:37 AM RAILWAY YARD ASSISTANT): - monitor - R/T hx ETOH abuse Alcohol abuse 05/11/2023 Assessment & Plan (05/11/2023 12:05 PM RAILWAY YARD ASSISTANT): admits to 6-12 beers + some hard [...] #Variceal Screening: Last colonoscopy was performed at [facility] 2-3 years ago per patient. Results show unknown. Fibroscan 07/11/2023: kPa 32.1, CAP 267 suggestive of normal moderate steatosis, very high fibrosis. Baveno Criteria, kPa > 20 or Platelet count > 150K , recommend EGD for variceal surveillance. He is to get EGD/Colonoscopy scheduled at [facility]. We will obtain the reports. #Labs: [...] #Variceal Screening: Last colonoscopy was performed at [facility] 2-3 years ago per patient. Results [...] months. Assessment & Plan (05/13/2023 10:28 AM RAILWAY YARD ASSISTANT): - Monitor AST/ALT - has seen someone in past at [facility] and has been told that he has cirrhosis - admits to 6-12 beers + some hard liquor a day - denies hx of DT's symptoms - has been at OSH for several days so should be outside the DT window - cont to monitor - consult hepatology for DC recs Empyema lung 05/10/2023 Empyema 05/10/2023 Assessment & Plan (05/17/2023 8:16 AM RAILWAY YARD ASSISTANT): Patient s/p thoracentesis 05/09 at OSH - Stop Vanc, cefe - start Augmentin - CBC pending - Pt recs for home with family Inguinal hernia 05/17/2011 Resolved Problems Problem Noted Date Diagnosed Date Resolved Date Hyperkalemia 05/16/2023 05/17/2023 Assessment & Plan (05/16/2023 11:36 AM RAILWAY YARD ASSISTANT): - recheck labs today - monitor Hyponatremia 05/16/2023 05/17/2023 Assessment & Plan (05/16/2023 11:37 AM RAILWAY YARD ASSISTANT): - mild - monitor Social History Tobacco [...] on file Legal Sex Male 1:46 AM RAILWAY YARD ASSISTANT Gender Identity Not on file Sexual Orientation Not on file Last Filed Vital Signs Vital Sign Reading Time Taken Comments Blood Pressure 117/77 04/19/2024 8:13 AM RAILWAY YARD ASSISTANT Pulse 83 04/19/2024 8:13 AM RAILWAY YARD ASSISTANT Temperature 36.4 C (97.6 F) 04/19/2024 8:13 AM RAILWAY YARD ASSISTANT Respiratory Rate 12 05/31/2023 9:54 AM CDT Oxygen Saturation 96% 04/19/2024 8:13 AM RAILWAY YARD ASSISTANT Inhaled Oxygen Concentration - - Weight 93.3 kg (205 lb 9.6 oz) 04/19/2024 8:13 A M RAILWAY YARD ASSISTANT Height 177.8 cm (5' 10 ) 04/19/2024 8:13 AM RAILWAY YARD ASSISTANT Body Mass Index 29.5 04/19/2024 8:13 AM RAILWAY YARD ASSISTANT Plan of Treatment Not on file Procedures Procedure Name Priority Date/Time Associated Diagnosis Comments GI - RESULT 04/24/2024 6:54 PM RAILWAY YARD ASSISTANT PROTIME-INR Routine 04/19/2024 9:42 AM RAILWAY YARD ASSISTANT Hepatic cirrhosis, unspecified hepatic cirrhosis type, unspecified whether ascites present (HCC) EGFR Routine 04/19/2024 9:41 AM RAILWAY YARD ASSISTANT Hepatic cirrhosis, unspecified hepatic cirrhosis type, unspecified whether ascites present (HCC) DIFFERENTIAL AUTO Routine 04/19/2024 9:4 1 AM RAILWAY YARD ASSISTANT Hepatic cirrhosis, unspecified hepatic cirrhosis type, unspecified whether ascites present (HCC) PHOSPHATIDYLETHANOL Routine 04/19/2024 9 :41 AM RAILWAY YARD ASSISTANT Hepatic cirrhosis, unspecified hepatic cirrhosis type, unspecified whether ascites present (HCC) CBC WITH AUTO DIFFERENTIAL Routine 04/19 9:41 AM RAILWAY YARD ASSISTANT Hepatic cirrhosis, unspecified hepatic cirrhosis type, unspecified whether ascites present (HCC) COMPREHENSIVE METABOLIC PANEL Routine 04/19/2024 9:41 AM RAILWAY YARD ASSISTANT Hepatic cirrhosis, unspecified hepatic cirrhosis type, unspecified whether ascites present (HCC) [id number], TUMOR MARKER Routine 04/19/2024 9:41 AM RAILWAY YARD ASSISTANT Hepatic cirrhosis, unspecified hepatic cirrhosis type, unspecified whether ascites present (HCC) HEPATITIS C RNA, QUANTITATIVE, PCR Routine 04/19/2024 9:41 AM RAILWAY YARD ASSISTANT Hepatic cirrhosis, unspecified hepatic cirrhosis type, unspecified whether ascites present (HCC) from Last 3 Months Results * GI - RESULT (04/24/2024 6:54 PM RAILWAY YARD ASSISTANT) Anatomical Region Laterality Modality Other us Provider Scanning Final Result * Protime-INR (04/19/2024 9:42 AM RAILWAY YARD ASSISTANT) PT 12.6 9.7 - 13.0 sec INR 1.16 0.90 - 1.20 [facility] Comment: Interpretive data Oral anticoagulant therapeutic ranges: Venous thromboembolism prophylaxis or treatment: 2.0-3.0 CARDIOLOGY Standard range: 2.0-3.0 High-intensity range: 2.5-3.5 Refer to indication-specific guidelines for appropriate target ranges for prosthetic heart valve replacement. Current interpretive data was last revised on 2019. Blood 04/19/2024 9:42 AM RAILWAY YARD ASSISTANT 04/19/2024 11:54 AM RAILWAY YARD ASSISTANT us Eneida Hilario NP LAB BLOOD ORDERABLES Final Result [facility] Department [place] [address] * Phosphatidylethanol (04/19/2024 9:41 AM RAILWAY YARD ASSISTANT) PHOSPHATIDYLETHANOL Positive . [facility] Comment: ADDITIONAL INFORMATION This report is intended for use in clinical monitoring and management of patients. It is not intended for use in employment-related testing. This test was developed and its performance characteristics determined by [facility] in a manner consistent with CLIA requirements. This test has not been cleared or approved by the U.S. Food and Drug Administration. Test Performed by: [facility] [place] [address] Computational Physicist: Justa Winters Ph.D.; CLIA# [id number] PEth 16:0/18:1 (POPEth)by LC-MS/MS 227 Cutoff: 10 ng/mL [facility] Comment: Phosphatidylethanol (PEth) homologues result interpretation PEth [...] not well established Blood 04/19/2024 9:41 AM RAILWAY YARD ASSISTANT 04/19/2024 12:16 PM RAILWAY YARD ASSISTANT us Eneida Hilario NP LAB BLOOD ORDERABLES Final Result Performing Organization Address City/[facility]/ZIP Co de Phone Number [facility]EN [facility] [place] [address] [place] ref Lab * eGFR (04/19/2024 9:41 AM RAILWAY YARD ASSISTANT) eGFR >90 >=60 mL/min/1. 73 m2 Comment: [...] last reviewed 2021. Blood 04/19/2024 9:41 AM RAILWAY YARD ASSISTANT 04/19/2024 12:11 PM RAILWAY YARD ASSISTANT us Eneida Hilario NP LAB BLOOD ORDERABLES Final Result Performing Organization Address City/[facility]/ZIP Co de Phone Number [facility] [place] [address] * Differential, auto (04/19/2024 9:41 AM RAILWAY YARD ASSISTANT) Neutrophil abs 5.2 1.5 - 6.5 K/cumm Imm gran abs 0.0 0.0 - 0.1 K/cumm [facility] Lymphocyte abs 1.7 0.8 - 3.3 K/cumm [facility] Monocyte abs 0.8 0.2 - 0.8 K/cumm [facility] Eosinophil abs 0.2 0.0 - 0.5 K/cumm [facility] Basophil abs 0.0 0.0 - 0.1 K/cumm [facility] Neutrophil pct 65.1 % [facility] Comment: Interpretive Data Percent cell count reference ranges are not reported, since discordance with absolute values may lead to misinterpretation of CBC data. Current Interpretive Data was last revised on 2017. Imm gran pct 0.4 % [facility] Comment: Interpretive Data Percent cell count reference ranges are not reported, since discordance with absolute values may lead to misinterpretation of CBC data. Current Interpretive Data was last revised on 2017. Lymphocyte pct 21.5 % [facility] Comment: Interpretive Data Percent cell count reference ranges are not reported, since discordance with absolute values may lead to misinterpretation of CBC data. Current Interpretive Data was last revised on 2017. Monocyte pct 10.3 % [facility] Comment: Interpretive Data Percent cell count reference ranges are not reported, since discordance with absolute values may lead to misinterpretation of CBC data. Current Interpretive Data was last revised on 2017. Eosinophil pct 2.3 % [facility] Comment: Interpretive Data Percent cell count reference ranges are not reported, since discordance with absolute values may lead to misinterpretation of CBC data. Current Interpretive Data was last revised on 2017. Basophil pct 0.4 % [facility] Comment: Interpretive Data Percent cell count reference ranges are not reported, since discordance with absolute values may lead to misinterpretation of CBC data. Current Interpretive Data was last revised on 2017. Blood 04/19/2024 9:41 AM RAILWAY YARD ASSISTANT 04/19/2024 11:53 AM RAILWAY YARD ASSISTANT Eneida Tobin Yanelis PINON LAB BLOOD ORDERABLES Final Result Performing Organization Address City/[facility] Co de Phone Number [facility] Department [place] [address] * CBC with auto differential (04/19/2024 9:41 AM RAILWAY YARD ASSISTANT) [facility] WBC 8.0 3.8 - 9.9 K/cumm Hgb 14.4 13.0 - 17.5 g/dL [facility] Hct 42.0 38.9 - 50.3 % [facility] Plt 198 150 - 400 K/cumm [facility] MPV 10.1 9.1 - 12.3 fL [facility] RBC 4.63 4.30 - 5.80 M/cumm [facility] MCV 90.7 81.3 - 96.4 fL [facility] MCH 31.1 27.1 - 33.3 pg [facility] MCHC 34.3 32.3 - 35.7 g/dL [facility] RDW CV 13.3 11.1 - 14.9 % [facility] RDW SD 44.5 35.7 - 48.1 fL [facility] NRBC abs 0.00 0.00 - 0.01 K/cumm [facility] Blood 04/19/2024 9:41 AM RAILWAY YARD ASSISTANT 04/19/2024 11:53 AM RAILWAY YARD ASSISTANT Eneida Tobin Yanelis [facility] LAB BLOOD ORDERABLES Final Result Performing Organization Address City/[facility]/ZIP Co de Phone Number [facility] Department [place] [address] * [id number], Tumor Marker (04/19/2024 9:41 AM RAILWAY YARD ASSISTANT) [facility] alpha Fetoprotein <2.0 <=8.3 ng/mL [...] 2018;[id number]:[id number] Veronica Tovar et al. Clin Chem 2014;2395-9929. Current interpretive data was last revised 2021. Blood 04/19/2024 9:41 AM RAILWAY YARD ASSISTANT 04/19/2024 11:54 AM RAILWAY YARD ASSISTANT Eneida Hilario NP LAB BLOOD ORDERABLES Final Result Performing Organization Address [facility] de Phone Number [facility] [place] [address] * Hepatitis C (HCV) RNA PCR, quantitative Blood (04/19/2024 9:41 AM RAILWAY YARD ASSISTANT) [facility] HCV RNA result Not Detected [facility] Comment: The quantifiable range of this assay is 15 IU/mL to 100,000,000 IU/mL (1.18 log IU/mL to 8.00 log IU/mL). Testing was performed by the [employer] 6800 HCV Test ([employer] Testing performed at [facility] Current Interpretive Data was last revised on 2020 Blood 04/19/2024 9:41 AM RAILWAY YARD ASSISTANT 04/19/2024 1:25 PM RAILWAY YARD ASSISTANT Eneida Hilario NP LAB MICROBIOLOGY - GENERAL ORDERABLES Final Result Performing Organization Address City/[facility]/ZIP Co de Phone Number [facility] [place] [address] [facility] * Comprehensive metabolic panel (04/19/2024 9:41 AM RAILWAY YARD ASSISTANT) Sodium 139 135 - 145 mmol/L Potassium, pl 4.6 3.3 - 4.9 mmol/L [facility] Chloride 99 97 - 110 mmol/L [facility] CO2 32 22 - 32 mmol/L [facility] Anion gap 8 2 - 15 mmol/L [facility] BUN 16 6 - 25 mg/dL [facility] Creatinine 0.82 0.80 - 1.30 mg/dL [facility] Glucose 123 70 - 199 mg/dL [facility] Comment: Interpretive Data Fasting glucose >/= 126 [...] 2022. Calcium 9.6 8.5 - 10.3 mg/dL [facility] Bilirubin, total 0.5 0.1 - 1.2 mg/dL [facility] Protein, pl 8.2 6.5 - 8.5 g/dL [facility] Albumin 3.9 3.5 - 5.0 g/dL [facility] Alk phos 84 40 - 130 Units/L [facility] ALT 19 7 - 55 Units/L [facility] AST 28 10 - 50 Units/L [facility] Blood 04/19/2024 9:41 AM RAILWAY YARD ASSISTANT 04/19/2024 11:54 AM RAILWAY YARD ASSISTANT us Eneida Hilario NP LAB BLOOD ORDERABLES Final Result [facility] Department [place] [address] from Last 3 Months Insurance IDPA MEDICARE [facility] Address: [address] [address] [place] [address] COMMERCIAL GENERIC HU[employer] CHOICE MEDICARE PPO HU[employer] CHOICE MEDICARE PPO Advance Directives For more information, please contact: [phone] * Full Code (Latest Code Status on File) Date Activated Date Inactivated Comments 05/10/2023 10:38 PM 05/18/2023 5:43 PM Care Teams Morning Nanny Relationship Specialty Start Date End Date Ramon Guardado MD PCP - General Family Practice 04/14/23
[2024-07-05 12:55] LABS: Hemoglobin A1C 5.6 % (<5.7)
== END 2024-07-05 10:53 | disposition home or self-care (01) ==
PROVIDERS: PCP Family Medicine; Visit Provider Family Medicine
DX: E66.9 Obesity, unspecified (principal); Z79.899 Other long term (current) drug therapy; R73.03 Prediabetes; E87.1 Hypo-osmolality and hyponatremia; R00.2 Palpitations; K74.60 Unspecified cirrhosis of liver; R79.89 Other specified abnormal findings of blood chemistry; R56.9 Unspecified convulsions; Z12.5 Encounter for screening for malignant neoplasm of prostate
CPT/HCPCS: 36415; 80053; 80061; 83036; 84153; 85025; G0103

== ENCOUNTER 2024-07-06 02:50 | Day surgery (SDC) | payer MEDICARE, SELFPAY ==
--- NOTE | 2024-06-29 11:39 | PC.NURSE ---
Report to the Outpatient Waiting Room, entrance under the green pavilion located off [facility], at time __9:30 am on date __07/06/24 . Planned Procedure Time: _11:30 am .? Time changes happen often and if your time is changed the preop area will call you the afternoon before. - You and your visitor will be asked to self-screen and do not enter if you have any COVID symptoms. Please call surgeon if you need to reschedule. - A mask is optional within the hospital at this time. Patients may have clear liquids (water, carbonated beverages, clear teas, apple juice) until 3 hours prior to surgery ( 8:30 am) with a maximum of 20 ounces. - No food from midnight until time of surgery and no smoking, or chewing tobacco (or any form of nicotine). No chewing gum, candy or mints. Take only the following medications with a SIP of water on the morning of surgery: ___HYDROCODONE IF NEEDED,METOPROLOL DO NOT STOP ANY OF YOUR OTHER PRESCRIPTION MEDICATIONS PRIOR TO SURGERY EXCEPT THE FOLLOWING Hold all vitamins and supplements for 3 days per anesthesiologist. LAST DOSE 07/02/24 Medications to discontinue per physician MELOXICAM PER DR PRINCE Please no make-up, nail english, hairspray, perfume, deodorant, or body powder the day of surgery.? No jewelry (including any body piercings) or valuables the day of surgery, leave them at home.? Please take a shower or bath the night before, or the morning of, surgery with an antibacterial soap.? Wear comfortable, loose fitting clothing.? Children are encouraged to wear pajamas. - Jewelry must be removed prior to entering the operating room.? Rings and piercings that are not removed may be cut off. - The hospital will not accept responsibility for valuables.? - Please leave all valuables, including medications, at home the day of surgery. If you are going home after surgery, a licensed dedicated local truck driver must drive you home.? - NO public transportation without another adult if you receive anesthesia. - We recommend that an adult stay with you for 24 hours following discharge. - We also recommend that you do not drive, make important decision, drink alcoholic beverages, or take any drugs that were not prescribed by your health care provider for at least 24 hours after your discharge time. For Pediatric surgeries, we recommend two adults accompany the child home. Follow any additional instructions given to you from your surgeon. Telephone instructions given to __patient and asked if any additional questions and then verbalized understanding. Patient advised to call surgeon office or pre surgery nurse liaison [phone] if any additional questions.
[2024-06-29 13:34] VITALS: BMI 28.7
[2024-07-06] VITALS (9 sets, daily range): BP systolic 111–151; BP diastolic 74–87; PULSE 52–75; RESP 14–18; TEMP 36.2–36.6; O2SAT 97–100
--- NOTE | ~2024-07-06 | XR_ITS ---
EXAMINATION: XR surgery orthopedic DATE: 07/06/2024 12:26 INDICATION: Arthrodesis in the right foot. TECHNIQUE: 2 images of the right forefoot were obtained during procedure performed by Dr. Pozo. R adiologist was not present for the imaging or procedure. The amount of fluoroscopy time used during t his procedure was 0.3 minutes. Total DAP was 1.289 cGycm^2. COMPARISON: None. FINDINGS: Images demonstrate a bunionectomy at the medial head of the right first metatarsal and instrumented f irst metatarsophalangeal arthrodesis. The arthrodesis is fixed with a variable pitch compression scre w and a dorsal plate and screws. Alignment appears near-anatomic. No fracture. The visualized unfused joint spaces appear normal. IMPRESSION: 1. Expected appearance post bunionectomy instrumented right first metatarsophalangeal arthrodesis. Se e procedure note for further detail. Reviewed, dictated and finalized at location A. IMPRESSION: 1. Expected appearance post bunionectomy instrumented right first metatarsophal angeal arthrodesis. See procedure note for further detail.
--- OUTSIDE RECORDS SUMMARY | 2024-07-06 02:54 | XMS_ITS | Continuity of Care Document ---
Author Organization [facility] Address [address] [place] [address] Phone Care Team Providers Care Cafe Helper Name Role Phone Jerald Gar MD Unavailable [...] Diagnoses Date Provider Providers Copied on Encounter [facility], [address] [place], [id number], tel:[phone] [facility] No Information 3 Cong Marques. [address] [place], [address] , [place]. tel:[phone] Referring Provider: Amador Carrizales [address], [place], [place], [id number]. tel:[phone] OFFICE/OUTPA TIENT VISIT, [facility] [place], [address], [place], [place], [address], [place] tel:[phone] [facility] scapular pain (chief complaint) chronic pain (chief complaint) ED (chief complaint) anemia (chief complaint) Dietary surveillance and counselingAnemiaEre ctile DysfunctionPain in joint involving lower legNondependent alcohol abuse, unspecified drinking behavior Srikanth-0 5 3 Cong Marques. [address], [place], [place], [address] , [place]. tel:[phone] Referring Provider: Amador Carriz[address], [place], [place], [address]. tel:[phone] OFFICE/OUTPA TIENT VISIT, [facility] [place], [facility] [address], [place], [place], [address], [place] tel:[phone] [facility] chronic pain (chief complaint) Dietary surveillance and counselingAnemiaCHR ONIC PAIN NEC July-0 3 3 Cong Marques. [address], [place], [place], [address] , [place]. tel:[phone] Referring Provider: [address], [place], [place], [address]. tel:[phone] OFFICE/OUTPA TIENT VISIT, [facility] [place], [address], [place], [place], [address], [place] tel:[phone] [facility] chronic pain (chief complaint) Anemia (chief complaint) Dietary surveillance and counselingCHRONIC PAIN NECAnemiaInsomnia, Other Apr-0 8 3 Cong Marques. [address], [place], [place], [address] , [place]. tel:[phone] Referring Provider: Amador Carrizales [address], [place], [place], [address]. tel:[phone] OFFICE/OUTPA TIENT VISIT, [facility] [place], [address], [place], [place], [address], [place] [phone] [facility] Chronic pain (chief complaint) Insomnia (chief complaint) Ed (chief complaint) Dietary surveillance and counselingCHRONIC PAIN NECAnemiaInsomnia, Other 3 Cong Marques. [address], [place], [place], [address] , [place]. [phone] Referring Provider: Jerald Gar, [address], [place], [place], [address]. tel:[phone] PREV VISIT, EST, AGE 40-64 [facility], [address], [place], [place], [address], [place] [phone] [facility] Physical (chief complaint) Dietary surveillance and counselingRoutine Medical ExamCHRONIC PAIN NECNondependent alcohol abuse, unspecified drinking behaviorRoutine Medical Exam 3 Cong Marques. [address], [place], [place], [address] , [place]. [phone] Referring Provider: Amador Carrizales [address], [place], [place], [address]. tel:[phone] OFFICE/OUTPA TIENT VISIT, [facility] [place], [address], [place], [place], [address], [place] [phone] [facility] foot pain (chief complaint) chronic pain (chief complaint) Pain in joint involving lower legDietary surveillance and counselingAnemiaNon dependent alcohol abuse, unspecified drinking behavior 3 Cong Marques. [address], [place], [place], [address] , [place]. [phone] Referring Provider: Amador Carrizales [address], [place], [place], [address]. tel:[phone] OFFICE/OUTPA TIENT VISIT, [facility] [place], [address], [place], [place], [address], [place] tel:[phone] [facility] chronic pain (chief complaint) ED (chief complaint) anemia (chief complaint) Dietary surveillance and counselingCHRONIC PAIN NECAnemiaErectile DysfunctionNondepen dent alcohol abuse, unspecified drinking behavior 2 Cong Marques. [address], [place], [place], [address] , [place]. [phone] Referring Provider: Jerald Gar, [address], [place], [place], [address]. tel:[phone] OFFICE/OUTPA TIENT VISIT, [facility], [address], [place], [place], [address], [place] [phone] [facility] chornic pain (chief complaint) insomnia (chief complaint) Dietary surveillance and counselingCHRONIC PAIN NECInsomnia, OtherErectile Dysfunction 2 Cong Marques. [address], [place], [place], [address] , [place]. [phone] Family History Family Member Type Diagnosis Age At Onset Mother Problem (finding) Alive and well Brother Problem (finding) Alive and well Father Problem (finding) Alive and well Payers Payer name Insurance type Covered democrat ID Authoriza tion(s) No Information Social History [...]
--- OUTSIDE RECORDS SUMMARY | 2024-07-06 02:54 | XMS_ITS | Clinical Summary ---
Author Organization [facility] Address [address] [place] [address] Care Team Providers Care Nursing Administrator Name Role Phone Ramon Guardado MD Primary Care Provider [phone] Allergies No known active allergies Medications gabapentin [...] 024 Assessment & Plan (04/19/2024 8:48 AM CURING OVEN TENDER): Mr. Albarran returns for Chronic Hepatitis C [...] show unknown. I will obtain report from [facility] in [place]. #Labs: Patient due for lab work today: [...] 05/16/2023 Assessment & Plan (05/16/2023 11:37 AM CURING OVEN TENDER): - monitor - R/T hx ETOH abuse Alcohol abuse 05/11/2023 Assessment & Plan (05/11/2023 12:05 PM CURING OVEN TENDER): admits to 6-12 beers + some hard [...] #Variceal Screening: Last colonoscopy was performed at [facility] 2-3 years ago per patient. Results show unknown. Fibroscan 07/11/2023: kPa 32.1, CAP 267 suggestive of normal moderate steatosis, very high fibrosis. Baveno Criteria, kPa > 20 or Platelet count > 150K , recommend EGD for variceal surveillance. He is to get EGD/Colonoscopy scheduled at [facility]. We will obtain the reports. #Labs: Last [...] #Variceal Screening: Last colonoscopy was performed at [facility] 2-3 years ago per patient. Results [...] months. Assessment & Plan (05/13/2023 10:28 AM CURING OVEN TENDER): - Monitor AST/ALT - has seen someone in past at [facility] and has been told that he has cirrhosis - admits to 6-12 beers + some hard liquor a day - denies hx of DT's symptoms - has been at OSH for several days so should be outside the DT window - cont to monitor - consult hepatology for DC recs Empyema lung 05/10/2023 Empyema 05/10/2023 Assessment & Plan (05/17/2023 8:16 AM CURING OVEN TENDER): Patient s/p thoracentesis 05/09 at OSH - Stop Vanc, cefe - start Augmentin - CBC pending - Pt recs for home with family Inguinal hernia 05/17/2011 Resolved Problems Problem Noted Date Diagnosed Date Resolved Date Hyperkalemia 05/16/2023 05/17/2023 Assessment & Plan (05/16/2023 11:36 AM CURING OVEN TENDER): - recheck labs today - monitor Hyponatremia 05/16/2023 05/17/2023 Assessment & Plan (05/16/2023 11:37 AM CURING OVEN TENDER): - mild - monitor Encounters Date Type Department Care Team Description 05/01/2024 Documentation [facility] G[facility]enter[facility] [address]th [place] [address] [place] [address] Marge Brantley LPN 04/24/2024 Orders Only [facility] Scanning, Provider 04/24/2024 Telephone [facility]enterology [address] [place] [address] [address]th [place] [address] [place] [address] Marge Brantley LPN 04/23/2024 Documentation [facility] Gastroenterology [facility] 12th [place] [address] [place] [address] Marge Brantley LPN 04/19/2024 8:55 AM CURING OVEN TENDER Lab [facility] [address] [place] [address] [address] [place] [address] Hepatic cirrhosis, unspecified hepatic cirrhosis type, unspecified whether ascites present (HCC) 04/19/2024 8:20 AM CURING OVEN TENDER Office Visit [facility] [address] [facility] 2nd [address] [place] [address] Eneida Hilario, KATHRIN Hepatic cirrhosis, unspecified hepatic cirrhosis type, unspecified whether ascites present (HCC) (Primary Dx) 04/19/2024 Telephone [facility]enter[facility] [address] [place] [address] Eneida Hilario NP 04/18/2024 Telephone [facility] [address] [facility] 12th [place] [address] [place] [address] Marge Brantley LPN 04/17/2024 Telephone [facility]enter[facility] [address] [facility] 12th [place] [address] [place] [address] Nawaf Disla RN from Last 3 Months [...] on file Legal Sex Male 1:46 AM CURING OVEN TENDER Gender Identity Not on file Sexual Orientation Not on file Obstetrics History Last Filed Vital Signs Vital Sign Reading Time Taken Comments Blood Pressure 117/77 04/19/2024 8:13 AM CURING OVEN TENDER Pulse 83 04/19/2024 8:13 AM CURING OVEN TENDER Temperature 36.4 C (97.6 F) 04/19/2024 8:13 AM CURING OVEN TENDER Respiratory Rate 12 05/31/2023 9:54 AM CDT Oxygen Saturation 96% 04/19/2024 8:13 AM CURING OVEN TENDER Inhaled Oxygen Concentration - - Weight 93.3 kg (205 lb 9.6 oz) 04/19/2024 8:13 A M CURING OVEN TENDER Height 177.8 cm (5' 10 ) 04/19/2024 8:13 AM CURING OVEN TENDER Body Mass Index 29.5 04/19/2024 8:13 AM CURING OVEN TENDER Plan of Treatment Health Maintenance Due Date [...] Comments GI - RESULT 04/24/2024 6:54 PM CURING OVEN TENDER PROTIME-INR Routine 04/19/2024 9:42 AM CURING OVEN TENDER Hepatic cirrhosis, unspecified hepatic cirrhosis type, unspecified whether ascites present (HCC) EGFR Routine 04/19/2024 9:41 AM CURING OVEN TENDER Hepatic cirrhosis, unspecified hepatic cirrhosis type, unspecified whether ascites present (HCC) DIFFERENTIAL AUTO Routine 04/19/2024 9:4 1 AM CURING OVEN TENDER Hepatic cirrhosis, unspecified hepatic cirrhosis type, unspecified whether ascites present (HCC) PHOSPHATIDYLETHANOL Routine 04/19/2024 9 :41 AM CURING OVEN TENDER Hepatic cirrhosis, unspecified hepatic cirrhosis type, unspecified whether ascites present (HCC) CBC WITH AUTO DIFFERENTIAL Routine 04/19 9:41 AM CURING OVEN TENDER Hepatic cirrhosis, unspecified hepatic cirrhosis type, unspecified whether ascites present (HCC) COMPREHENSIVE METABOLIC PANEL Routine 04/19/2024 9:41 AM CURING OVEN TENDER Hepatic cirrhosis, unspecified hepatic cirrhosis type, unspecified whether ascites present (HCC) [id number]-[id number], TUMOR MARKER Routine 04/19/2024 9:41 AM CURING OVEN TENDER Hepatic cirrhosis, unspecified hepatic cirrhosis type, unspecified whether ascites present (HCC) HEPATITIS C RNA, QUANTITATIVE, PCR Routine 04/19/2024 9:41 AM CURING OVEN TENDER Hepatic cirrhosis, unspecified hepatic cirrhosis type, unspecified whether ascites present (HCC) from Last 3 Months Results * GI - RESULT (04/24/2024 6:54 PM CURING OVEN TENDER) Anatomical Region Laterality Modality Other us Provider Scanning Final Result * Protime-INR (04/19/2024 9:42 AM CURING OVEN TENDER) PT 12.6 9.7 - 13.0 sec INR 1.16 0.90 - 1.20 THIEN TAVERAS Comment: Interpretive data Oral anticoagulant therapeutic ranges: Venous thromboembolism prophylaxis or treatment: 2.0-3.0 CARDIOLOGY Standard range: 2.0-3.0 High-intensity range: 2.5-3.5 Refer to indication-specific guidelines for appropriate target ranges for prosthetic heart valve replacement. Current interpretive data was last revised on 2019. Blood 04/19/2024 9:42 AM CURING OVEN TENDER 04/19/2024 11:54 AM CURING OVEN TENDER us Eneida Hilario NP LAB BLOOD ORDERABLES Final Result [facility] [place] [address] * Phosphatidylethanol (04/19/2024 9:41 AM CURING OVEN TENDER) PHOSPHATIDYLETHANOL Positive . [facility] Comment: ADDITIONAL INFORMATION This report is intended for use in clinical monitoring and management of patients. It is not intended for use in employment-related testing. This test was developed and its performance characteristics determined by [facility] in a manner consistent with CLIA requirements. This test has not been cleared or approved by the U.S. Food and Drug Administration. Test Performed by: [facility] [address] [place] [address] Loading Unit Operator Powder Charging: Justa Winters Ph.D.; CLIA# [id number] PEth 16:0/18:1 (POPEth)by LC-MS/MS 227 Cutoff: 10 [...] not well established Blood 04/19/2024 9:41 AM CURING OVEN TENDER 04/19/2024 12:16 PM CURING OVEN TENDER us Eneida Hilario NP LAB BLOOD ORDERABLES Final Result [facility] [place] [address] [facility] * eGFR (04/19/2024 9:41 AM CURING OVEN TENDER) eGFR >90 >=60 mL/min/1. 73 m2 Comment: [...] last reviewed 2021. Blood 04/19/2024 9:41 AM CURING OVEN TENDER 04/19/2024 12:11 PM CURING OVEN TENDER us Eneida Hilario NP LAB BLOOD ORDERABLES Final Result [facility] [address] [facility] [place] [address] * Differential, auto (04/19/2024 9:41 AM CURING OVEN TENDER) Neutrophil abs 5.2 1.5 - 6.5 K/cumm Imm gran abs 0.0 0.0 - 0.1 K/cumm [facility] Lymphocyte abs 1.7 0.8 - 3.3 K/cumm [facility] Monocyte abs 0.8 0.2 - 0.8 K/cumm [facility] Eosinophil abs 0.2 0.0 - 0.5 K/cumm [facility] Basophil abs 0.0 0.0 - 0.1 K/cumm [facility] Neutrophil pct 65.1 % [facility] Comment: Interpretive Data Percent cell count reference ranges are not reported, since discordance with absolute values may lead to misinterpretation of CBC data. Current Interpretive Data was last revised on 2017. Imm gran pct 0.4 % [facility] Comment: Interpretive Data Percent cell count reference ranges are not reported, since discordance with absolute values may lead to misinterpretation of CBC data. Current Interpretive Data was last revised on 2017. Lymphocyte pct 21.5 % [facility] Comment: Interpretive Data Percent cell count reference ranges are not reported, since discordance with absolute values may lead to misinterpretation of CBC data. Current Interpretive Data was last revised on 2017. Monocyte pct 10.3 % [facility] Comment: Interpretive Data Percent cell count reference ranges are not reported, since discordance with absolute values may lead to misinterpretation of CBC data. Current Interpretive Data was last revised on 2017. Eosinophil pct 2.3 % [facility] Comment: Interpretive Data Percent cell count reference ranges are not reported, since discordance with absolute values may lead to misinterpretation of CBC data. Current Interpretive Data was last revised on 2017. Basophil pct 0.4 % [facility] Comment: Interpretive Data Percent cell count reference ranges are not reported, since discordance with absolute values may lead to misinterpretation of CBC data. Current Interpretive Data was last revised on 2017. Blood 04/19/2024 9:41 AM CURING OVEN TENDER 04/19/2024 11:53 AM CURING OVEN TENDER Eneida Hilario NP LAB BLOOD ORDERABLES Final Result [facility] [address] [facility] [place] [address] * CBC with auto differential (04/19/2024 9:41 AM CURING OVEN TENDER) WBC 8.0 3.8 - 9.9 K/cumm Hgb 14.4 13.0 - 17.5 g/dL [facility] Hct 42.0 38.9 - 50.3 % [facility] Plt 198 150 - 400 K/cumm [facility] MPV 10.1 9.1 - 12.3 fL [facility] RBC 4.63 4.30 - 5.80 M/cumm [facility] MCV 90.7 81.3 - 96.4 fL [facility] MCH 31.1 27.1 - 33.3 pg [facility] MCHC 34.3 32.3 - 35.7 g/dL [facility] RDW CV 13.3 11.1 - 14.9 % [facility] RDW SD 44.5 35.7 - 48.1 fL [facility] NRBC abs 0.00 0.00 - 0.01 K/cumm [facility] Blood 04/19/2024 9:41 AM CURING OVEN TENDER 04/19/2024 11:53 AM CURING OVEN TENDER us Eneida Tobin Yanelis FORENSIC EXAMINER LAB BLOOD ORDERABLES Final Result Performing Organization Address City/[facility]/[facility] Co de Phone Number [facility] [place] [address] * [id number], Tumor Marker (04/19/2024 9:41 AM CURING OVEN TENDER) Pathologist [facility] alpha Fetoprotein <2.0 <=8.3 ng/mL Comment: [...] 2018;[id number]:[id number] Veronica Tovar et al. Clin Chem 2014;[id number]. Current interpretive data was last revised 2021. Blood 04/19/2024 9:41 AM CURING OVEN TENDER 04/19/2024 11:54 AM CURING OVEN TENDER us Eneida Tobin Yanelis PINON LAB BLOOD ORDERABLES Final Result Performing Organization Address [facility] Co de Phone Number [facility] [place] [address] * Hepatitis C (HCV) RNA PCR, quantitative Blood (04/19/2024 9:41 AM CURING OVEN TENDER) Pathologist [facility] HCV RNA result Not Detected [facility] Comment: The quantifiable range of this assay is 15 IU/mL to 100,000,000 IU/mL (1.18 log IU/mL to 8.00 log IU/mL). Testing was performed by the [employer] 6800 HCV Test ([employer] Testing performed at [facility] Current Interpretive Data was last revised on 2020 Blood 04/19/2024 9:41 AM CURING OVEN TENDER 04/19/2024 1:25 PM CURING OVEN TENDER us Eneida Hilario NP LAB MICROBIOLOGY - GENERAL ORDERABLES Final Result [facility] [place] [address] [facility] * Comprehensive metabolic panel (04/19/2024 9:41 AM CURING OVEN TENDER) [facility] Sodium 139 135 - 145 mmol/L Potassium, pl 4.6 3.3 - 4.9 mmol/L [facility] Chloride 99 97 - 110 mmol/L [facility] CO2 32 22 - 32 mmol/L [facility] Anion gap 8 2 - 15 mmol/L [facility] BUN 16 6 - 25 mg/dL [facility] Creatinine 0.82 0.80 - 1.30 mg/dL [facility] Glucose 123 70 - 199 mg/dL [facility] Comment: Interpretive Data Fasting glucose >/= 126 [...] Calcium 9.6 8.5 - 10.3 mg/dL [facility] Bilirubin, total 0.5 0.1 - 1.2 mg/dL [facility] Protein, pl 8.2 6.5 - 8.5 g/dL [facility] Albumin 3.9 3.5 - 5.0 g/dL [facility] Alk phos 84 40 - 130 Units/L [facility] ALT 19 7 - 55 Units/L [facility] AST 28 10 - 50 Units/L [facility] Blood 04/19/2024 9:41 AM CURING OVEN TENDER 04/19/2024 11:54 AM CURING OVEN TENDER us Eneida Hilario NP LAB BLOOD ORDERABLES Final Result [facility] [place] [address] from Last 3 Months Insurance [facility] Address: [address] [address] [place] [address] COMMERCIAL GENERIC [employer] CHOICE MEDICARE PPO [employer] MEDICARE PPO Advance Directives For more information, please contact: [phone] * Full Code (Latest Code Status on File) Date Activated Date Inactivated Comments 05/10/2023 10:38 PM 05/18/2023 5:43 PM Care Teams Nursing Administrator Relationship Specialty Start Date End Date Ramon Guardado MD PCP - General Family Practice 04/14/23
--- OUTSIDE RECORDS SUMMARY | 2024-07-06 02:54 | XMS_ITS | Encounter Summary ---
Author Organization [facility] Address [address] [place] [address] Phone Care Team Providers Care Mental Health Program Specialist Name Role Phone Ramon Guardado MD Primary Care Provider [phone] Encounter Details Date Type Department Care Team [...] on file Legal Sex Male 1:46 AM BUSINESS SERVICES ASSISTANT Gender Identity Not on file Sexual [...] on filedocumented in this encounter Care Teams Mental Health Program Specialist Relationship Specialty Start Date End Date Ramon Guardado MD PCP - General Family Practice 04/14/23 documented as of this encounter
--- OUTSIDE RECORDS SUMMARY | 2024-07-06 02:54 | XMS_ITS | Encounter Summary ---
Author Organization [facility] Address [address] [place] [address] Phone Care Team Providers Care Lapel Padder Blindstitch Name Role Phone Ramon Guardado MD Primary Care Provider [phone] Encounter Details Date Type Department Care Team [...] on file Legal Sex Male 1:46 AM SHOES SALESPERSON Gender Identity Not on file Sexual Orientation [...] on filedocumented in this encounter Care Teams Lapel Padder Blindstitch Relationship Specialty Start Date End Date Ramon Guardado MD PCP - General Family Practice 04/14/23 documented as of this encounter
--- OUTSIDE RECORDS SUMMARY | 2024-07-06 02:54 | XMS_ITS | Referral Summary ---
Author Organization [facility] Address [address] [place] [address] Care Team Providers Care Frame Straightener Name Role Phone Ramon Guardado MD Primary Care Provider [phone] Encounters Date Type Department Care Team Description 05/01/2024 Documentation [facility] [address]th [place] [address] [place] [address] Marge Brantley LPN 04/24/2024 Orders Only [facility] Scanning, Provider 04/24/2024 Telephone [facility] [address] [place] [address] [place] [address] Marge Brantley LPN 04/23/2024 Documentation [facility] [address] [place] [address] [place] [address] Marge Brantley LPN 04/19/2024 Telephone [facility] [address] [facility] [address] [place] [address] Eneida Hilario NP 04/19/2024 8:55 AM ELECTRIC MOTOR ASSEMBLER [employer] TESTER Lab [facility] [address] [place] [address] [address] [place] [address] Hepatic cirrhosis, unspecified hepatic cirrhosis type, unspecified whether ascites present (HCC) 04/19/2024 8:20 AM ELECT[employer]IC [employer]OR [employer] Office Visit [facility] [address] [facility] [address] 2[address] [place] [address] Eneida Hilario, KATHRIN Hepatic cirrhosis, unspecified hepatic cirrhosis type, unspecified whether ascites present (HCC) (Primary Dx) 04/18/2024 Telephone [facility] [address] [facility] [address]th [place] [address] [place] [address] Fercho MargeGERARDO 04/17/2024 Telephone [facility] [address] [facility] [address]th [place] [address] [place] [address] Nawaf Disla, CHUN from Last [...] 024 Assessment & Plan (04/19/2024 8:48 AM ELECTRIC MOTOR ASSEMBLER AND TESTER): Mr. Albarran returns for Chronic Hepatitis C [...] show unknown. I will obtain report from [facility] in [place]. #Labs: Patient due for lab work today: [...] 05/16/2023 Assessment & Plan (05/16/2023 11:37 AM ELECTRIC MOTOR ASSEMBLER AND TESTER): - monitor - R/T hx ETOH abuse Alcohol abuse 05/11/2023 Assessment & Plan (05/11/2023 12:05 PM ELECTRIC MOTOR ASSEMBLER AND TESTER): admits to 6-12 beers + some hard [...] #Variceal Screening: Last colonoscopy was performed at [facility] 2-3 years ago per patient. Results show unknown. Fibroscan 07/11/2023: kPa 32.1, CAP 267 suggestive of normal moderate steatosis, very high fibrosis. Baveno Criteria, kPa > 20 or Platelet count > 150K , recommend EGD for variceal surveillance. He is to get EGD/Colonoscopy scheduled at [facility]. We will obtain the reports. #Labs: Last [...] #Variceal Screening: Last colonoscopy was performed at [facility] 2-3 years ago per patient. Results [...] months. Assessment & Plan (05/13/2023 10:28 AM ELECTRIC MOTOR ASSEMBLER [employer] TESTER): - Monitor AST/ALT - has seen someone in past at [facility] and has been told that he has cirrhosis - admits to 6-12 beers + some hard liquor a day - denies hx of DT's symptoms - has been at OSH for several days so should be outside the DT window - cont to monitor - consult hepatology for DC recs Empyema lung 05/10/2023 Empyema 05/10/2023 Assessment & Plan (05/17/2023 8:16 AM ELECTRIC MOTOR ASSEMBLER AND TESTER): Patient s/p thoracentesis 05/09 at OSH - Stop Vanc, cefe - start Augmentin - CBC pending - Pt recs for home with family Inguinal hernia 05/17/2011 Resolved Problems Problem Noted Date Diagnosed Date Resolved Date Hyperkalemia 05/16/2023 05/17/2023 Assessment & Plan (05/16/2023 11:36 AM ELECTRIC MOTOR ASSEM[employer]ER [employer] TESTER): - recheck labs today - monitor Hyponatremia 05/16/2023 05/17/2023 Assessment & Plan (05/16/2023 11:37 AM ELECTRIC MOTOR ASSEMBLER AND TESTER): - mild - monitor Social History Tobacco [...] on file Legal Sex Male 1:46 AM ELECTRIC [employer]OR [employer]STER Gender Identity Not on file Sexual Orientation Not on file Last Filed Vital Signs Vital Sign Reading Time Taken Comments Blood Pressure 117/77 04/19/2024 8:13 AM ELECTRIC [employer]OR [employer]STER Pulse 83 04/19/2024 8:13 AM ELECT[employer]OR [employer] Temperature 36.4 C (97.6 F) 04/19/2024 8:13 AM ELECT[employer]OR [employer] TESTER Respiratory Rate 12 05/31/2023 9:54 AM CDT Oxygen Saturation 96% 04/19/2024 8:13 AM ELECT[employer]OR [employer]ER [employer]STER Inhaled Oxygen Concentration - - Weight 93.3 kg (205 lb 9.6 oz) 04/19/2024 8:13 A M [employer] Height 177.8 cm (5' 10 ) 04/19/2024 8:13 AM ELECTRIC [employer]OR AS[employer]BLER [employer] TESTER Body Mass Index 29.5 04/19/2024 8:13 AM ELECTRIC [employer]OR [employer]ER [employer]STER Plan of Treatment Not on file Procedures Procedure Name Priority Date/Time Associated Diagnosis Comments GI - RESULT 04/24/2024 6:54 PM ELECTR[employer]OR [employer]STER PROTIME-INR Routine 04/19/2024 9:42 AM ELECT[employer]OR [employer] Hepatic cirrhosis, unspecified hepatic cirrhosis type, unspecified whether ascites present (HCC) EGFR Routine 04/19/2024 9:41 AM E[employer]OR [employer]STER Hepatic cirrhosis, unspecified hepatic cirrhosis type, unspecified whether ascites present (HCC) DIFFERENTIAL AUTO Routine 04/19/2024 9:4 1 AM [employer]OR [employer] Hepatic cirrhosis, unspecified hepatic cirrhosis type, unspecified whether ascites present (HCC) PHOSPHATIDYLETHANOL Routine 04/19/2024 9 :41 AM ELECTRIC [employer]OR [employer]ER [employer] TESTER Hepatic cirrhosis, unspecified hepatic cirrhosis type, unspecified whether ascites present (HCC) CBC WITH AUTO DIFFERENTIAL Routine 04/19 9:41 AM ELECTRIC [employer]OR [employer] TESTER Hepatic cirrhosis, unspecified hepatic cirrhosis type, unspecified whether ascites present (HCC) COMPREHENSIVE METABOLIC PANEL Routine 04/19/2024 9:41 AM ELECTRIC [employer]OR [employer]ER [employer] TESTER Hepatic cirrhosis, unspecified hepatic cirrhosis type, unspecified whether ascites present (HCC) [id number], TUMOR MARKER Routine 04/19/2024 9:41 AM ELECT[employer]IC [employer]OR [employer]SEM[employer]ER [employer] TESTER Hepatic cirrhosis, unspecified hepatic cirrhosis type, unspecified whether ascites present (HCC) HEPATITIS C RNA, QUANTITATIVE, PCR Routine 04/19/2024 9:41 AM ELECTRIC [employer]OR [employer]BLER [employer] TESTER Hepatic cirrhosis, unspecified hepatic cirrhosis type, unspecified whether ascites present (HCC) from Last 3 Months Results * GI - RESULT (04/24/2024 6:54 PM ELECTRIC MOTOR ASSEMBLER [employer] TESTER) Anatomical Region Laterality Modality Other us Provider Scanning Final Result * Protime-INR (04/19/2024 9:42 AM ELECTRIC MOTOR ASSEMBLER AND TESTER) PT 12.6 9.7 - 13.0 sec INR 1.16 0.90 - 1.20 [facility] Comment: Interpretive data Oral anticoagulant therapeutic ranges: Venous thromboembolism prophylaxis or treatment: 2.0-3.0 CARDIOLOGY Standard range: 2.0-3.0 High-intensity range: 2.5-3.5 Refer to indication-specific guidelines for appropriate target ranges for prosthetic heart valve replacement. Current interpretive data was last revised on 2019. Blood 04/19/2024 9:42 AM ELECTRIC MOTOR ASSEMBLER AND TESTER 04/19/2024 11:54 AM ELECTRIC MOTOR ASSEMBLER AND TESTER us Eneida Hilario NP LAB BLOOD ORDERABLES Final Result [facility] Department [place] [address] * Phosphatidylethanol (04/19/2024 9:41 AM ELECTRIC MOTOR ASSEMBLER AND TESTER) PHOSPHATIDYLETHANOL Positive . [facility] Comment: ADDITIONAL INFORMATION This report is intended for use in clinical monitoring and management of patients. It is not intended for use in employment-related testing. This test was developed and its performance characteristics determined by [facility] in a manner consistent with CLIA requirements. This test has not been cleared or approved by the U.S. Food and Drug Administration. Test Performed by: [facility] [place] [address] [employer] B Gang Worker: Justa Winters Ph.D.; CLIA# [id number] PEth 16:0/18:1 (POPEth)by LC-MS/MS 227 Cutoff: 10 ng/mL [facility] Comment: Phosphatidylethanol (PEth) homologues result interpretation PEth [...] not well established Blood 04/19/2024 9:41 AM ELECTRIC MOTOR ASSEMBLER AND TESTER 04/19/2024 12:16 PM ELECTRIC MOTOR ASSEMBLER AND TESTER us Eneida Hilario NP LAB BLOOD ORDERABLES Final Result Performing Organization Address City/[facility] [address]/ZIP Co de Phone Number [facility] [place] [address] [place] ref Lab * eGFR (04/19/2024 9:41 AM ELECTRIC MOTOR ASSEMBLER AND TESTER) eGFR >90 >=60 mL/min/1. 73 m2 Comment: [...] last reviewed 2021. Blood 04/19/2024 9:41 AM ELECTRIC MOTOR ASSEMBLER AND TESTER 04/19/2024 12:11 PM ELECTRIC MOTOR ASSEMBLER AND TESTER us Eneida Hilario NP LAB BLOOD ORDERABLES Final Result Performing Organization Address City/[facility] [address]/ZIP Co de Phone Number [facility] Department [place] [address] * Differential, auto (04/19/2024 9:41 AM ELECTRIC MOTOR ASSEMBLER AND TESTER) Neutrophil abs 5.2 1.5 - 6.5 K/cumm Imm gran abs 0.0 0.0 - 0.1 K/cumm [facility] Lymphocyte abs 1.7 0.8 - 3.3 K/cumm [facility] Monocyte abs 0.8 0.2 - 0.8 K/cumm [facility] Eosinophil abs 0.2 0.0 - 0.5 K/cumm [facility] Basophil abs 0.0 0.0 - 0.1 K/cumm [facility] Neutrophil pct 65.1 % [facility] Comment: Interpretive Data Percent cell count reference ranges are not reported, since discordance with absolute values may lead to misinterpretation of CBC data. Current Interpretive Data was last revised on 2017. Imm gran pct 0.4 % [facility] Comment: Interpretive Data Percent cell count reference ranges are not reported, since discordance with absolute values may lead to misinterpretation of CBC data. Current Interpretive Data was last revised on 2017. Lymphocyte pct 21.5 % [facility] Comment: Interpretive Data Percent cell count reference ranges are not reported, since discordance with absolute values may lead to misinterpretation of CBC data. Current Interpretive Data was last revised on 2017. Monocyte pct 10.3 % [facility] Comment: Interpretive Data Percent cell count reference ranges are not reported, since discordance with absolute values may lead to misinterpretation of CBC data. Current Interpretive Data was last revised on 2017. Eosinophil pct 2.3 % [facility] Comment: Interpretive Data Percent cell count reference ranges are not reported, since discordance with absolute values may lead to misinterpretation of CBC data. Current Interpretive Data was last revised on 2017. Basophil pct 0.4 % [facility] Comment: Interpretive Data Percent cell count reference ranges are not reported, since discordance with absolute values may lead to misinterpretation of CBC data. Current Interpretive Data was last revised on 2017. Blood 04/19/2024 9:41 AM ELECTRIC MOTOR ASSEMBLER AND TESTER 04/19/2024 11:53 AM ELECTRIC MOTOR ASSEMBLER AND TESTER Eneida Tobin Yanelis PINON LAB BLOOD ORDERABLES Final Result Performing Organization Address City/[facility] [address]/[facility] Co de Phone Number [facility] Department [place] [address] * CBC with auto differential (04/19/2024 9:41 AM ELECTRIC MOTOR ASSEMBLER AND TESTER) [facility] WBC 8.0 3.8 - 9.9 K/cumm Hgb 14.4 13.0 - 17.5 g/dL [facility] Hct 42.0 38.9 - 50.3 % [facility] Plt 198 150 - 400 K/cumm [facility] MPV 10.1 9.1 - 12.3 fL [facility] RBC 4.63 4.30 - 5.80 M/cumm [facility] MCV 90.7 81.3 - 96.4 fL [facility] MCH 31.1 27.1 - 33.3 pg [facility] MCHC 34.3 32.3 - 35.7 g/dL [facility] RDW CV 13.3 11.1 - 14.9 % [facility] RDW SD 44.5 35.7 - 48.1 fL [facility] NRBC abs 0.00 0.00 - 0.01 K/cumm [facility] Blood 04/19/2024 9:41 AM ELECTRIC MOTOR ASSEMBLER AND TESTER 04/19/2024 11:53 AM ELECTRIC MOTOR ASSEMBLER AND TESTER Eneida Tobin Yanelis [facility]ON LAB BLOOD ORDERABLES Final Result Performing Organization Address City/[facility] [address]/ZIP Co de Phone Number [facility] Department [place] [address] * [id number], Tumor Marker (04/19/2024 9:41 AM ELECTRIC MOTOR ASSEMBLER AND TESTER) [facility] alpha Fetoprotein <2.0 <=8.3 ng/mL Comment: Interpretive [...] 2018;[id number] Veronica Tovar et al. Clin Chem 2014;[id number]. Current interpretive data was last revised 2021. Blood 04/19/2024 9:41 AM ELECTRIC MOTOR ASSEMBLER AND TESTER 04/19/2024 11:54 AM ELECTRIC MOTOR ASSEMBLER AND TESTER Eneida Hilario NP LAB BLOOD ORDERABLES Final Result Performing Organization Address [facility] [address]/[facility] de Phone Number [facility] [place] [address] * Hepatitis C (HCV) RNA PCR, quantitative Blood (04/19/2024 9:41 AM ELECTRIC MOTOR ASSEMBLER AND TESTER) [facility] HCV RNA result Not Detected [facility] Comment: The quantifiable range of this assay is 15 IU/mL to 100,000,000 IU/mL (1.18 log IU/mL to 8.00 log IU/mL). Testing was performed by the [employer] 6800 HCV Test ([employer] Testing performed at [facility] Current Interpretive Data was last revised on 2020 Blood 04/19/2024 9:41 AM ELECTRIC MOTOR ASSEMBLER AND TESTER 04/19/2024 1:25 PM ELECTRIC MOTOR ASSEMBLER AND TESTER Eneida Hilario NP LAB MICROBIOLOGY - GENERAL ORDERABLES Final Result Performing Organization Address City/[facility] [address]/ZIP Co de Phone Number [facility] [place] [address] [facility] * Comprehensive metabolic panel (04/19/2024 9:41 AM ELECTRIC MOTOR ASSEMBLER [employer] TESTER) Sodium 139 135 - 145 mmol/L Potassium, pl 4.6 3.3 - 4.9 mmol/L [facility] Chloride 99 97 - 110 mmol/L [facility] CO2 32 22 - 32 mmol/L [facility] Anion gap 8 2 - 15 mmol/L [facility] BUN 16 6 - 25 mg/dL [facility] Creatinine 0.82 0.80 - 1.30 mg/dL [facility] Glucose 123 70 - 199 mg/dL [facility] Comment: Interpretive Data Fasting glucose >/= [...] 2022. Calcium 9.6 8.5 - 10.3 mg/dL [facility] Bilirubin, total 0.5 0.1 - 1.2 mg/dL [facility] Protein, pl 8.2 6.5 - 8.5 g/dL [facility] Albumin 3.9 3.5 - 5.0 g/dL [facility] Alk phos 84 40 - 130 Units/L [facility] ALT 19 7 - 55 Units/L [facility] AST 28 10 - 50 Units/L [facility] Blood 04/19/2024 9:41 AM ELECTRIC MOTOR AS[employer]BLER [employer] TESTER 04/19/2024 11:54 AM ELECTRIC MOTOR ASSEMBLER AND TESTER us Eneida Hilario NP LAB BLOOD ORDERABLES Final Result [facility] [place] [address] from Last 3 Months Insurance IDPA MEDICARE [facility] Address: [address] [address] [place] [address] COMMERCIAL GENERIC [employer] CHOICE MEDICARE PPO [employer] CHOICE MEDICARE PPO Advance Directives For more information, please contact: [phone] * Full Code (Latest Code Status on File) Date Activated Date Inactivated Comments 05/10/2023 10:38 PM 05/18/2023 5:43 PM Care Teams Frame Straightener Relationship Specialty Start Date End Date Ramon Guardado MD PCP - General Family Practice 04/14/23
--- OUTSIDE RECORDS SUMMARY | 2024-07-06 02:54 | XMS_ITS | Clinical Summary ---
Author Organization [facility] Address [address], [address] [address] Phone Care Team Providers Care Employment Legal Assistant Name Role Phone Guy Madison MD Primary Care Provider [phone] Medications polyethylene glycol (MIRALAX) Powder Mix the entire bottle with 64 oz of a clear liquid. Use as directed by the office for colonoscopy prep. 255 g 8 Active Social History Tobacco Use Types Packs/Day Years Used Date Smoking Tobacco: Never Assessed Sex and Gender Information Value Date Recorded Sex Assigned at Not on file Legal Sex Male 3:53 PM VEST FINISHER Gender Identity Not on file Sexual Orientation [...] Recently Relevant to Health Maintenance Insurance MEDICAID [facility] PLAN Care Teams Employment Legal Assistant Relationship Specialty Start Date End Date Guy Madison MD [address] [facility] [address] [place] [address] PCP - General Internal Medicine 05/13/16
--- NOTE | 2024-07-06 07:13 | WPDHPUPDATE1 ---
History and Physical Update Update Date/Time: 07/06/24 07:13 History and Physical has been reviewed, including an updated exam of the patient. There are NO changes in the patient's condition. Risks, benefits, and alternatives have been discussed and questions answered. Patient agrees to proceed with procedure.
[2024-07-06] MEDS: LIDOCAINE 2% LOCAL INJ 20 ML VIAL 10 ML INFILTRATE (10:12)
[2024-07-06] MEDS: LACTATED RINGERS 1,000 ML 30 ML IV CONT (10:30)
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
[2024-07-06 11:03] LABS: Glucose Point of Care 99 mg/dl (65-105)
[2024-07-06] MEDS: ceFAZolin 2 GM/D5W 50 ML 2 GM/50 ML BAG IVPB (11:19)
--- NOTE | 2024-07-06 12:40 | W.PM.PROC2 ---
Procedure Note - Detailed Date of Procedure 07/06/24 Pre-op Diagnosis Arthritis 1st Metatarsal Phalangeal Joint Right Foot Post-op Diagnosis Same Procedure Performed Arthrodesis of the 1st Metatarsal Phalangeal Joint Right Foot Surgeon Tomer Pozo Jr., DPM Anesthesia General and Local Indications Painful Right Great Toe Joint Findings Severe joint degeneration and osteophytosis of the 1st metatarsal phalangeal joint right foot Description of Procedure PROCEDURE IN DETAIL: Under mild sedation, the patient was brought into the operating room, placed on the operating table in supine position. A pneumatic ankle tourniquet was placed about the patient's ipsilateral ankle. Following general anesthesia and a Tabares Block with 20ccs of 2% Lidocaine plain and 0.5% Marcaine plain, the foot was then scrubbed, prepped, and draped in the usual aseptic manner. An Esmarch bandage was then used to exsanguinate the patient's foot and the pneumatic ankle tourniquet was then inflated. Surgery began in the following manner: Attention was directed to the dorsal medial aspect of the 1st metatarsophalangeal joint where there was a moderate subcutaneous prominence was noted. The incision was made starting along the central shaft of the 1st metatarsal and extending just proximal to the interphalangeal joint of the hallux. The incision was continued deep down through the subcutaneous tissues using sharp and blunt dissection. All bleeders were cauterized as necessary. At this point, the dissection was continued down to the level of the periosteum and capsular structures overlying the 1st metatarsophalangeal joint. A full length periosteum and capsular incision was made just medial to the extensor hallucis longus tendon. The periosteum and capsular structures were freed from the base of the proximal phalanx as well as the distal 1st metatarsal. At this point, the 1st metatarsophalangeal joint was identified. There was a large osteophyte along the entire dorsal aspect of the 1st Metatarsal phalangeal joint with loss of articular cartilage to the head of the 1st metatarsal as well as the base of the proximal phalanx worse centrally and medially. There was significant broadening and hypertrophy of the 1st metatarsophalangeal joint. Utilizing a sagittal bone saw, the hypertrophied 1st metatarsal was resected dorsally, medially, and laterally. A power bur was used to make sure that there were no rough edges and also to further debride the hypertrophic 1st metatarsal. Next, a rongeur and oval 4.0mm power gabbie was used to resect the hypertrophic base of the proximal phalanx. At this point, the reamer system for the Maxforce plate system was used to denude the degenerative cartilage from the head of the 1st metatarsal as well as the base of the proximal phalanx. The cartilage and subchondral bone were fully debrided utilizing the reamer system until healthy bleeding bone was noted. Next, a 2-0 drill bit was used to further fenestrate the head of the 1st metatarsal as well as the base of the proximal phalanx in order to allow fusion across the 1st metatarsophalangeal joint. Next, a guide wire for a 3.0 headless Arthrex compression screw was driven from the medial aspect of the base of the proximal phalanx into the head of the 1st metatarsal in order to serve as temporary fixation, next the cannulated screw was driven and provided excellent compression. Next A large steel plate was used to make sure that the hallux was in a rectus position both in the sagittal plane as well as the frontal plane. Excellent position of the hallux was noted. Next, a Maxforce plate was placed atop the 1st metatarsophalangeal joint held in position with Brighton wires. Utilizing standard principles and techniques, the distal drill holes were drilled and three 3.0 mm fully-threaded locking screws were driven from dorsal to plantar holding the distal aspect of the plate intact. At this point, the Maxforce compression system was utilized from dorsal distal to proximal plantar across the 1st metatarsophalangeal joint with excellent compression noted. Next, a 3.0mm locking screw was used to further compress the joint along the oblong dynamic compression screw slot. Next, the remaining 2 proximal drill holes were drilled from dorsal to plantar across and two 3.0 mm locking screws were driven from dorsal to plantar. The wound site was then flushed with copious amounts of sterile saline. Fluoroscopy was used to make sure that the plate was appropriately aligned and oriented and also to make sure that the screws were of appropriate length and orientation. Excellent position of the 1st metatarsophalangeal joint was visualized in all planes. Next, the periosteum and capsular structures were reapproximated with 3-0 Vicryl. Next, the subcutaneous structures were reapproximated with 4-0 Vicryl. Next, the skin was reapproximated and coapted utilizing 4-0 Monocryl in running subcuticular suture fashion technique. Upon completion of the procedure, the incision was dressed with Steri-Strips, Adaptic, 4x4s, Kerlix, and Coban. The pneumatic ankle tourniquet was then deflated and a prompt hyperemic response was noted to all digits of the foot. A posterior splint was then applied to the affected lower extremity. It is important to note that Dr. Pozo was present throughout the procedure. The patient did very well with the procedure and the anesthesia. The patient was transferred to the recovery room with vital signs stable and vascular status intact to all toes of the foot. Following a period of postoperative monitoring, the patient will be discharged home on the following written and oral postoperative instructions: 1. Keep the dressing clean, dry, and intact. 2. The patient to be strictly nonweightbearing with a knee scooter or crutches. 3. The patient should ice and elevate the foot when at rest. 4. The patient should contact Dr. Pozo for all postop care and if any problems should arise. 5. Prescriptions were written for Percocet 5/325, dispensed 40 to be taken 1 p.o. q.4-6 hours as needed for severe pain. Furthermore, the patient should also take Xarelto 10 mg to be taken 1 p.o. daily starting 24 hours after surgery to prevent DVT for 14 days followed by one 325 mg aspirin until walking is re-initiated. Implants Arthrex Maxforce Plate with 3.0 Locking and Non Locking screws Arthrex 3.5 mm Headless compression screw Estimated Blood Loss 1 Drains No Packing No Pathology None sent Complications No immediate complications Condition Stable Disposition Same day
== END 2024-07-06 14:50 | disposition home or self-care (01) ==
PROVIDERS: PCP Family Medicine; Visit Provider Podiatrist Foot & Ankle Surgery
PROC: (CPT 28750; principal; 2024-07-06 11:30)
DX: M19.071 Primary osteoarthritis, right ankle and foot (principal); M25.774 Osteophyte, right foot; E78.5 Hyperlipidemia, unspecified; N52.8 Other male erectile dysfunction; N40.0 Benign prostatic hyperplasia without lower urinary tract symptoms; G89.29 Other chronic pain; M54.6 Pain in thoracic spine; R56.9 Unspecified convulsions; R73.02 Impaired glucose tolerance (oral); F12.90 Cannabis use, unspecified, uncomplicated; Z79.891 Long term (current) use of opiate analgesic; Z98.890 Other specified postprocedural states; Z87.891 Personal history of nicotine dependence; Z80.8 Family history of malignant neoplasm of other organs or systems; Z80.1 Family history of malignant neoplasm of trachea, bronchus and lung; Z82.49 Family history of ischemic heart disease and other diseases of the circulatory system
CPT/HCPCS: 28750; 82948; 99199; C1713; C1769; J0690; J1100; J2003; J2250; J2405; J2704; J3010; J7120

== ENCOUNTER 2024-07-25 14:51 | Outpatient (CLI) | payer MEDICARE, SELFPAY ==
--- NOTE | ~2024-07-25 | XR_ITS ---
XR chest 2V 07/25/2024 15:11 Indication: Pleural effusion. Procedure: 2 view chest Comparison: Comparison to multiple prior studies sequentially, with oldest reviewed study dated 11/06. Findings: Interval resolution right pleural effusion. Heart size normal. There are linear infiltrates of the right middle and lower lobe which most likely represents atelectasis/scarring. No acute osseo us abnormality. Impression: 1: Linear infiltrates of the right middle and lower lobe which most likely represents atelectasis/sca rring. Reviewed, dictated and finalized at location A. Impression: 1: Linear infiltrates of the right middle and lower lobe which most likely repr esents atelectasis/scarring.
--- OUTSIDE RECORDS SUMMARY | 2024-07-25 14:57 | XMS_ITS | Clinical Summary ---
Author Organization [facility] Address [address] [place] [address] Care Team Providers Care Machine Grinder Name Role Phone Ramon Guardado MD Primary Care Provider [phone] Allergies No known active allergies Medications gabapentin [...] 024 Assessment & Plan (04/19/2024 8:48 AM COLOR TECHNICIAN): Mr. Albarran returns for Chronic Hepatitis [...] show unknown. I will obtain report from [facility] in [place]. #Labs: Patient due for lab work today: [...] 05/16/2023 Assessment & Plan (05/16/2023 11:37 AM COLOR TECHNICIAN): - monitor - R/T hx ETOH abuse Alcohol abuse 05/11/2023 Assessment & Plan (05/11/2023 12:05 PM COLOR TECHNICIAN): admits to 6-12 beers + some [...] #Variceal Screening: Last colonoscopy was performed at [facility] 2-3 years ago per patient. Results show unknown. Fibroscan 07/11/2023: kPa 32.1, CAP 267 suggestive of normal moderate steatosis, very high fibrosis. Baveno Criteria, kPa > 20 or Platelet count > 150K , recommend EGD for variceal surveillance. He is to get EGD/Colonoscopy scheduled at [facility]. We will obtain the reports. #Labs: [...] #Variceal Screening: Last colonoscopy was performed at [facility] 2-3 years ago per patient. Results [...] months. Assessment & Plan (05/13/2023 10:28 AM COLOR TECHNICIAN): - Monitor AST/ALT - has seen someone in past at [facility] and has been told that he has cirrhosis - admits to 6-12 beers + some hard liquor a day - denies hx of DT's symptoms - has been at OSH for several days so should be outside the DT window - cont to monitor - consult hepatology for DC recs Empyema lung 05/10/2023 Empyema 05/10/2023 Assessment & Plan (05/17/2023 8:16 AM COLOR TECHNICIAN): Patient s/p thoracentesis 05/09 at OSH - Stop Vanc, cefe - start Augmentin - CBC pending - Pt recs for home with family Inguinal hernia 05/17/2011 Resolved Problems Problem Noted Date Diagnosed Date Resolved Date Hyperkalemia 05/16/2023 05/17/2023 Assessment & Plan (05/16/2023 11:36 AM COLOR TECHNICIAN): - recheck labs today - monitor Hyponatremia 05/16/2023 05/17/2023 Assessment & Plan (05/16/2023 11:37 AM COLOR TECHNICIAN): - mild - monitor Encounters Date Type Department Care Team Description 05/01/2024 Documentation [facility] Gastroenterology [address] [place] [address] [place] [address] Marge Brantley LPN from Last 3 Months Medical History Medical [...] on file Legal Sex Male 1:46 AM COLOR TECHNICIAN Gender Identity Not on file Sexual Orientation Not on file Obstetrics History Last Filed Vital Signs Vital Sign Reading Time Taken Comments Blood Pressure 117/77 04/19/2024 8:13 AM COLOR TECHNICIAN Pulse 83 04/19/2024 8:13 AM COLOR TECHNICIAN Temperature 36.4 C (97.6 F) 04/19/2024 8:13 AM COLOR TECHNICIAN Respiratory Rate 12 05/31/2023 9:54 AM CDT Oxygen Saturation 96% 04/19/2024 8:13 AM COLOR TECHNICIAN Inhaled Oxygen Concentration - - Weight 93.3 kg (205 lb 9.6 oz) 04/19/2024 8:13 A M COLOR TECHNICIAN Height 177.8 cm (5' 10 ) 04/19/2024 8:13 AM COLOR TECHNICIAN Body Mass Index 29.5 04/19/2024 8:13 AM COLOR TECHNICIAN Plan of Treatment Health Maintenance Due [...] Procedure Name Priority Date/Time Associated Diagnosis Comments HEPATITIS C RNA, QUANTITATIVE, PCR Routine 04/19/2024 9:41 AM COLOR TECHNICIAN Hepatic cirrhosis, unspecified hepatic cirrhosis type, unspecified whether ascites present (HCC) from Last 3 Months or Most Recently Relevant to Health Maintenance Results * Hepatitis C (HCV) RNA PCR, quantitative Blood (04/19/2024 9:41 AM COLOR TECHNICIAN) [facility] HCV RNA result Not Detected [facility] Comment: The quantifiable range of this assay is 15 IU/mL to 100,000,000 IU/mL (1.18 log IU/mL to 8.00 log IU/mL). Testing was performed by the [employer]NE[employer] 6800 HCV Test ([employer] Testing performed at [facility] Current Interpretive Data was last revised on 2020 Blood 04/19/2024 9:41 AM COLOR TECHNICIAN 04/19/2024 1:25 PM COLOR TECHNICIAN us Eneida Hilario NP LAB MICROBIOLOGY - GENERAL ORDERABLES Final Result THIEN [facility] Department [place] [address] [facility] from Last 3 Months or Most Recently Relevant to Health Maintenance Insurance IDPA MEDICARE COMMERCIAL GENERIC HUMANA CHOICE MEDICARE PPO HU[employer]NA CHOICE MEDICARE PPO Advance Directives For more information, please contact: [phone] * Full Code (Latest Code Status on File) Date Activated Date Inactivated Comments 05/10/2023 10:38 PM 05/18/2023 5:43 PM Care Teams Machine Grinder Relationship Specialty Start Date End Date Ramon Guardado MD PCP - General Family Practice 04/14/23
--- OUTSIDE RECORDS SUMMARY | 2024-07-25 14:57 | XMS_ITS | Continuity of Care Document ---
Author Organization [facility] Address [address] [place] [address] Phone Care Team Providers Care Billing Associate Name Role Phone Jerald Gar MD Unavailable [...] Diagnoses Date Provider Providers Copied on Encounter [facility], [address] [place], [place], [id number], tel:[phone] [facility] No Information [address] Cong Marques. [address] [place], [place], [address] , [place]. tel:[phone] Referring Provider: Amador Carrizales [address], [place], [place], [id number]. tel:[phone] OFFICE/OUTPA TIENT VISIT, [facility], [address], [place], [place], [address], [place] tel:[phone] [facility] scapular pain (chief complaint) chronic pain (chief complaint) ED (chief complaint) anemia (chief complaint) Dietary surveillance and counselingAnemiaEre ctile DysfunctionPain in joint involving lower legNondependent alcohol abuse, unspecified drinking behavior Srikanth-0 5 3 Cong Marques. [address], [place], [place], [address] , [place]. tel:[phone] Referring Provider: Amador Carrizales [address], [place], [place], [address]. tel:[phone] OFFICE/OUTPA TIENT VISIT, [facility], [facility] [address], [place], [place], [address], [place] tel:[phone] [facility] chronic pain (chief complaint) Dietary surveillance and counselingAnemiaCHR ONIC PAIN NEC July-0 3 3 [address] Marques. [address], [address], [place], [place], [address] , [place]. tel:[phone] Referring Provider: Am[address] Carrizales [address], [place], [place], [address]. tel:[phone] OFFICE/OUTPA TIENT VISIT, [facility], [address], [place], [place], [address], [place] tel:[phone] [facility] chronic pain (chief complaint) Anemia (chief complaint) Dietary surveillance and counselingCHRONIC PAIN NECAnemiaInsomnia, Other Apr-0 8 3 [address] Marques. [address], [address], [place], [place], [address] , [place]. tel:[phone] Referring Provider: Amador Carrizales [address], [place], [place], [address]. tel:[phone] OFFICE/OUTPA TIENT VISIT, [facility], [address], [place], [place], [id number], [place] [phone] [facility] Chronic pain (chief complaint) Insomnia (chief complaint) Ed (chief complaint) Dietary surveillance and counselingCHRONIC PAIN NECAnemiaInsomnia, Other 3 [address] Marques. [address], [address], [place], [place], [address] , [place]. [phone] Referring Provider: Jerald Gar, [address], [place], [place], [address]. tel:[phone] PREV VISIT, EST, AGE 40-64 [facility], [address], [place], [place], [address], [place] [phone] [facility] Physical (chief complaint) Dietary surveillance and counselingRoutine Medical ExamCHRONIC PAIN NECNondependent alcohol abuse, unspecified drinking behaviorRoutine Medical Exam 3 Cong Marques. [address], [address], [place], [place], [address] , [place]. [phone] Referring Provider: Amador Carrizales [address], [place], [place], [address]. tel:[phone] OFFICE/OUTPA TIENT VISIT, [facility], [address], [place], [place], [address], [place] [phone] [facility] foot pain (chief complaint) chronic pain (chief complaint) Pain in joint involving lower legDietary surveillance and counselingAnemiaNon dependent alcohol abuse, unspecified drinking behavior 3 Cong Marques. [address], [address], [place], [place], [address] , [place]. [phone] Referring Provider: Amador Carrizales [address], [place], [place], [address]. tel:[phone] OFFICE/OUTPA TIENT VISIT, [facility], [address], [place], [place], [address], [place] tel:[phone] [facility] chronic pain (chief complaint) ED (chief complaint) anemia (chief complaint) Dietary surveillance and counselingCHRONIC PAIN NECAnemiaErectile DysfunctionNondepen dent alcohol abuse, unspecified drinking behavior 2 Cong Marques. [address], [address], [place], [place], [address] , [place]. [phone] Referring Provider: Jerald Gar, [address], [place], [place], [address]. tel:[phone] OFFICE/OUTPA TIENT VISIT, [facility], [address], [place], [place], [address], [place] [phone] [facility] chornic pain (chief complaint) insomnia (chief complaint) Dietary surveillance and counselingCHRONIC PAIN NECInsomnia, OtherErectile Dysfunction 2 Cong Marques. [address], [address], [place], [place], [address] , [place]. [phone] Family History Family Member Type Diagnosis Age [...] Information Instructions Date Instruction Additional Infor aristeo Dietary counseling Related to Di etary surveillance [...] counseling Related to Di etary surveillance counseling Assessments Type Assessment Date No Information
--- OUTSIDE RECORDS SUMMARY | 2024-07-25 14:57 | XMS_ITS | Encounter Summary ---
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
--- OUTSIDE RECORDS SUMMARY | 2024-07-25 14:57 | XMS_ITS | Clinical Summary ---
Author Organization [facility] Address [address], [address] [address] Phone Care Team Providers Care Fitness Club Manager Name Role Phone Guy Madison MD Primary Care Provider [phone] Medications polyethylene glycol (MIRALAX) Powder Mix the entire bottle with 64 oz of a clear liquid. Use as directed by the office for colonoscopy prep. 255 g 8 Active Social History Tobacco Use Types Packs/Day Years Used Date Smoking Tobacco: Never Assessed Sex and Gender Information Value Date Recorded Sex Assigned at Not on file Legal Sex Male 3:53 PM EDUCATIONAL COORDINATOR Gender Identity Not on file Sexual Orientation [...] Insurance MEDICAID [facility] PLAN Care Teams Fitness Club Manager Relationship Specialty Start Date End Date Guy Madison MD [address] [place] [address] PCP - General Internal Medicine 05/13/16
--- OUTSIDE RECORDS SUMMARY | 2024-07-25 14:57 | XMS_ITS | Referral Summary ---
Author Organization [facility] al Address [address] [place] [address] Care Team Providers Care Data Operations Leader Name Role Phone Ramon Guaraddo MD Primary Care Provider [phone] Encounters Date Type Department Care Team Description 05/01/2024 Documentation [facility] Gastroenterology [address] 12[address] [place] [address] [place] [id number] Marge Brantley LPN from Last 3 Months Allergies No known [...] 024 Assessment & Plan (04/19/2024 8:48 AM SECURITY OFFICER): Mr. Albarran returns for Chronic Hepatitis C [...] show unknown. I will obtain report from [facility] in [place]. #Labs: Patient due for lab work today: [...] 05/16/2023 Assessment & Plan (05/16/2023 11:37 AM SECURITY OFFICER): - monitor - R/T hx ETOH abuse Alcohol abuse 05/11/2023 Assessment & Plan (05/11/2023 12:05 PM SECURITY OFFICER): admits to 6-12 beers + some hard [...] #Variceal Screening: Last colonoscopy was performed at [facility] 2-3 years ago per patient. Results show unknown. Fibroscan 07/11/2023: kPa 32.1, CAP 267 suggestive of normal moderate steatosis, very high fibrosis. Baveno Criteria, kPa > 20 or Platelet count > 150K , recommend EGD for variceal surveillance. He is to get EGD/Colonoscopy scheduled at [facility]. We will obtain the reports. #Labs: [...] #Variceal Screening: Last colonoscopy was performed at [facility] 2-3 years ago per patient. Results [...] months. Assessment & Plan (05/13/2023 10:28 AM SECURITY OFFICER): - Monitor AST/ALT - has seen someone in past at [facility] and has been told that he has cirrhosis - admits to 6-12 beers + some hard liquor a day - denies hx of DT's symptoms - has been at OSH for several days so should be outside the DT window - cont to monitor - consult hepatology for DC recs Empyema lung 05/10/2023 Empyema 05/10/2023 Assessment & Plan (05/17/2023 8:16 AM SECURITY OFFICER): Patient s/p thoracentesis 05/09 at OSH - Stop Vanc, cefe - start Augmentin - CBC pending - Pt recs for home with family Inguinal hernia 05/17/2011 Resolved Problems Problem Noted Date Diagnosed Date Resolved Date Hyperkalemia 05/16/2023 05/17/2023 Assessment & Plan (05/16/2023 11:36 AM SECURITY OFFICER): - recheck labs today - monitor Hyponatremia 05/16/2023 05/17/2023 Assessment & Plan (05/16/2023 11:37 AM SECURITY OFFICER): - mild - monitor Social History Tobacco [...] on file Legal Sex Male 1:46 AM SECURITY OFFICER Gender Identity Not on file Sexual Orientation Not on file Last Filed Vital Signs Vital Sign Reading Time Taken Comments Blood Pressure 117/77 04/19/2024 8:13 AM SECURITY OFFICER Pulse 83 04/19/2024 8:13 AM SECURITY OFFICER Temperature 36.4 C (97.6 F) 04/19/2024 8:13 AM SECURITY OFFICER Respiratory Rate 12 05/31/2023 9:54 AM CDT Oxygen Saturation 96% 04/19/2024 8:13 AM SECURITY OFFICER Inhaled Oxygen Concentration - - Weight 93.3 kg (205 lb 9.6 oz) 04/19/2024 8:13 A M SECURITY OFFICER Height 177.8 cm (5' 10 ) 04/19/2024 8:13 AM SECURITY OFFICER Body Mass Index 29.5 04/19/2024 8:13 AM SECURITY OFFICER Plan of Treatment Not on file Procedures Procedure Name Priority Date/Time Associated Diagnosis Comments HEPATITIS C RNA, QUANTITATIVE, PCR Routine 04/19/2024 9:41 AM SECURITY OFFICER Hepatic cirrhosis, unspecified hepatic cirrhosis type, unspecified whether ascites present (HCC) from Last 3 Months or Most Recently Relevant to Health Maintenance Results * Hepatitis C (HCV) RNA PCR, quantitative Blood (04/19/2024 9:41 AM SECURITY OFFICER) [facility] HCV RNA result Not Detected [facility] Comment: The quantifiable range of this assay is 15 IU/mL to 100,000,000 IU/mL (1.18 log IU/mL to 8.00 log IU/mL). Testing was performed by the [employer] 6800 HCV Test ([employer] Testing performed at [facility] Current Interpretive Data was last revised on 2020 Blood 04/19/2024 9:41 AM SECURITY OFFICER 04/19/2024 1:25 PM SECURITY OFFICER us Eneida Hilario NP LAB MICROBIOLOGY - GENERAL ORDERABLES Final Result THIEN [facility] Department [place] [address] [facility] from Last 3 Months or Most Recently Relevant to Health Maintenance Insurance IDPA MEDICARE COMMERCIAL GENERIC HU[employer] CHOICE MEDICARE PPO HU[employer] CHOICE MEDICARE PPO Advance Directives For more information, please contact: [phone] * Full Code (Latest Code Status on File) Date Activated Date Inactivated Comments 05/10/2023 10:38 PM 05/18/2023 5:43 PM Care Teams Data Operations Leader Relationship Specialty Start Date End Date Ramon Guardado MD PCP - General Family Practice 04/14/23
--- OUTSIDE RECORDS SUMMARY | 2024-07-25 14:57 | XMS_ITS | Encounter Summary ---
Author Organization [facility] Address [address] [place] [address] Phone Care Team Providers Care Wallcovering Texturer Name Role Phone Ramon Guardado MD Primary Care Provider [phone] Encounter Details Date Type Department Care Team [...] on file Legal Sex Male 1:46 AM PROMOTIONS REPRESENTATIVE Gender Identity Not on file Sexual Orientation [...] on filedocumented in this encounter Care Teams Wallcovering Texturer Relationship Specialty Start Date End Date Ramon Guardado MD PCP - General Family Practice 04/14/23 documented as of this encounter
== END 2024-07-25 14:52 | disposition home or self-care (01) ==
PROVIDERS: PCP Family Medicine; Visit Provider Family Medicine
DX: R91.8 Other nonspecific abnormal finding of lung field (principal); J90 Pleural effusion, not elsewhere classified
CPT/HCPCS: 71046

== ENCOUNTER 2024-08-09 16:19 | Outpatient (CLI) | payer MEDICARE, SELFPAY ==
--- NOTE | ~2024-08-09 | CT_ITS ---
CT Scan of the Chest without Contrast: Clinical Indication: Pleural effusion Technique: Contiguous sections were acquired throughout the chest without intravenous contrast. Dose reduction technique was used on this scan by utilizing automated exposure control and iterative recon struction technique. The dose-length product (DLP) was 372.52 mGy-cm. COMPARISON: 05/06/2023 Findings: There is no evidence of any significant mediastinal, hilar or axillary lymphadenopathy. Extensive cor onary artery calcifications are present. Ascending aorta is dilated to 4.4 cm. There is no evidence of pleural or pericardial effusion. There is chronic scarring in the right middle lobe and right lower lobe. Calcified right middle lobe granuloma present. Left lung clear. Images through the upper abdomen reveal probable mildly nodular contour of liver. Impression: No pleural effusion. Probable chronic scarring in the right middle and lower lobes. Ascending aortic aneurysm measures 4.4 cm in diameter. Reviewed, dictated and finalized at [facility]. Impression: No pleural effusion. Probable chronic scarring in the right middle and lower lobes. Ascending aortic aneurysm measures 4.4 cm in diameter.
--- OUTSIDE RECORDS SUMMARY | 2024-08-09 16:24 | XMS_ITS | Clinical Summary ---
Author Organization [facility] Address [address], [address] [address] Phone Care Team Providers Care Brewery Pumper Name Role Phone Guy Madison MD Primary Care Provider [phone] Medications polyethylene glycol (MIRALAX) Powder Mix the entire bottle with 64 oz of a clear liquid. Use as directed by the office for colonoscopy prep. 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
== END 2024-08-09 16:20 | disposition home or self-care (01) ==
PROVIDERS: PCP Family Medicine; Visit Provider Family Medicine
DX: J90 Pleural effusion, not elsewhere classified (principal); J98.11 Atelectasis
CPT/HCPCS: 71250

== ENCOUNTER 2024-10-18 17:54 | Emergency (ER) | payer MEDICARE, SELFPAY ==
--- NOTE | ~2024-10-18 | XR_ITS ---
HISTORY: fall, wound dorsum COMPARISON: 11/06/2006 demonstrating prior ulnar styloid fracture TECHNIQUE: 3 views of the right hand were performed. FINDINGS: Cortical irregularity the distal third metacarpal, possibly representing subacute fracture with callu s formation. Redemonstration of prior ulnar styloid fracture. No additional acute or subacute abnormality is appreciated. Significant degenerative disease is identified. Gullwing deformity is identified within the proximal interphalangeal joint spaces of the second, thir d, fourth and fifth digits. Significant degenerative disease within the first carpometacarpal joint space. Periarticular osteopenia is noted consistent with osteoarthritis Joint space narrowing is identified within the third fourth and fifth distal pharyngeal joint spaces. The remaining joint spaces are preserved. The carpal arcs are intact. Significant radiocarpal joint space narrowing with sclerosis of the distal radius is present. No radiopaque foreign body is identified. IMPRESSION: Severe degenerative disease, with a possible subacute fracture within the distal margin o f the third metacarpal for which clinical correlation regarding point tenderness in this location is needed. Reviewed, dictated and finalized at location A. IMPRESSION: Severe degenerative disease, with a possible subacute fracture with in the distal margin of the third metacarpal for which clinical correlation reg arding point tenderness in this location is needed.
--- NOTE | ~2024-10-18 | XR_ITS ---
HISTORY: fall stairs; acute on chronic pain COMPARISON: 10/15/2023 TECHNIQUE: 4 views of left shoulder were performed FINDINGS: No acute fracture. Posterior lateral humeral head depression increased from previous examination performed 10/15/2023 sugg esting a possible Hill-Sachs defect of the humeral head, with adjacent sclerosis. Widening of the acromioclavicular joint space is noted within inferior clavicular osteophyte. The remainder of the glenohumeral and acromioclavicular joint spaces are otherwise maintained The visualized portion of the adjacent left lung is clear. The humeral head is well seated within the glenoid fossa. IMPRESSION: No acute fracture or anterior dislocation. Findings suggesting a possible Hill-Sachs defect of the humeral head with adjacent sclerosis. Acromioclavicular joint space degenerative disease. Reviewed, dictated and finalized at location A. IMPRESSION: No acute fracture or anterior dislocation. Findings suggesting a possible Hill-Sachs defect of the humeral head with adjac ent sclerosis. Acromioclavicular joint space degenerative disease.
--- NOTE | ~2024-10-18 | CT_ITS ---
History: Remote history of a fall (approximately 4 days earlier). PROCEDURE: CT cervical spine and facial bones without intravenous contrast. Examination is limited secondary to patient positioning within the gantry (the patient's head is tilt ed obliquely to the right), rendering interpretation somewhat limited COMPARISON: 07/28/2021 TECHNIQUE: Multiple contiguous axial images of the cervical spine and facial bones were performed without the ad ministration of intravenous contrast. DLP: 613 mGy-cm FINDINGS: Interval progression of the 2021 examination of significant degenerative disease within the cervical spine. 4.3 mm of anterolisthesis of C2 onto C3 is identified, increased from 3.2 mm in 202. Significant degenerative disease is identified with osteophyte formation, disc space narrowing, endpl ate changes, subchondral cyst formation and facet arthropathy. No acute displaced fractures are present within the cervical spine. Biapical scarring No soft tissue abnormality is appreciated The airway is patent. Retention cyst within the base of the right maxillary sinus. Mucoperiosteal thickening within the left maxillary sinus Mucoperiosteal thickening within the bilateral ethmoid sinuses. No acute or subacute facial bone fracture. Impression: Significant degenerative disease demonstrating progression since the 2021 examination within the cerv ical spine. No acute displaced fracture within the cervical spine. No acute or subacute facial bone fracture. Reviewed, dictated and finalized at location A. Impression: Significant degenerative disease demonstrating progression since the 2021 exami nation within the cervical spine. No acute displaced fracture within the cervical spine. No acute or subacute facial bone fracture.
--- NOTE | ~2024-10-18 | XR_ITS ---
HISTORY: fall, wound COMPARISON: None TECHNIQUE: 3 views of the right wrist were performed. FINDINGS: No acute fracture is identified. Possible subacute fracture within the distal margin of the third metacarpal is suspected. Severe degenerative disease is identified joint space narrowing and osteophyte formation. Severe degenerative disease within carpometacarpal joint space. Dense vascular calcifications are also noted. Periarticular osteopenia is present. Additional abnormalities, likely not clinically significant described in the plain view evaluation of the right hand. IMPRESSION: Severe degenerative disease, without acute fracture. Reviewed, dictated and finalized at location A.
--- NOTE | ~2024-10-18 | CT_ITS ---
History: Remote history of a fall (approximately 4 days earlier) PROCEDURE: CT head without contrast. COMPARISON: 09/11/2015 TECHNIQUE: Axial imaging of the head performed from the skull base to the vertex without IV contrast. Sagittal a nd coronal reformations obtained. DLP: 681 mGy-cm FINDINGS: Left frontal scalp hematoma, high in the convexity. The ventricles are enlarged. The dilatation of the ventricles is proportional to the degree of sulcal prominence, not uncommon in the senescent brain, but far advanced for a patient of this age. Decreased attenuation is identified within the periventricular white matter, likely secondary to micr ovascular ischemic disease, far advanced disease in a patient of this age. There is no mass, mass effect or midline shift. Bifrontal atrophy There is no abnormal extra-axial fluid collection or intracranial hemorrhage. Visualized paranasal sinuses are clear. The mastoid air cells are well aerated. No acute displaced fractures within the overlying cranium. Impression: No acute intracranial hemorrhage or suspicious mass effect. Left frontal scalp hematoma. 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 Reviewed, dictated and finalized at location A. Impression: No acute intracranial hemorrhage or suspicious mass effect. Left frontal scalp hematoma. 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
--- NOTE | ~2024-10-18 | CT_ITS ---
CLINICAL INDICATION: Remote history of a fall, 4 days earlier left chest/rib pain and ecchymosis of t he left flank COMPARISON: 05/06/2023 TECHNIQUE: An enhanced CT of the chest, abdomen and pelvis was performed utilizing multislice spiral technique reconstructed at 5 mm slice thickness. Coronal and sagittal reconstructions were performed . This CT examination was performed utilizing dose reduction techniques. DLP: 1473 mGy-cm FINDINGS/OBSERVATIONS: Lung:Calcified nodules within the right middle lobe, unchanged from prior. Bibasilar pleural thickening with adjacent compressive atelectasis. Cylindrical bronchiectasis detected within the bilateral lung bases. Small left-sided pleural effusion, with adjacent compressive atelectasis No contusion, pneumothorax or hemothorax. The heart is of normal size, without pericardial effusion. Mediastinum: No pathologically enlarged or morphologically suspicious lymph nodes are identified within the medias tinum, bilateral axilla, within the soft tissues of the anterior chest wall. Soft tissues of the chest: Unremarkable. Bones of the chest: Acute/subacute minimally displaced left eighth and ninth rib fractures. No scapular fracture. No ster nal fracture. No clavicle fractures Liver: The liver enhances homogeneously and is not enlarged. No perihepatic fluid to suggest acute traumatic injury. Gallbladder and biliary system: The gallbladder is only minimally distended, but otherwise unremarkable. Pancreas: The pancreas enhances homogeneously, without ductal dilatation. No peripancreatic fluid is identified to suggest acute traumatic injury. Spleen: Spleen enhances homogeneously and is not enlarged. No perisplenic fluid is identified to sugg est acute traumatic injury. Kidneys: The bilateral kidneys enhance symmetrically without hydronephrosis or renal calculi. No perirenal fluid is identified to suggest acute traumatic injury. Adrenal glands: Unremarkable. Gastrointestinal tract: Small hiatal hernia is present. Fecal stasis within the cecum. No significant free fluid within the abdomen or pelvis. Appendix: The air-filled appendix is of normal caliber (axial series, images 200 - 214). Vasculature: Calcified atherosclerotic disease is present. No aneurysmal dilatation. Lymph nodes: Scattered nonpathologically enlarged lymph nodes within the root of the mesentery and deep in the pel vis. Pelvic structures: The bladder is only minimally distended and otherwise unremarkable. The prostate gland is not enlarged. Body wall and musculoskeletal: Fat-containing left inguinal hernia. Degenerative disease detected within the thoracic and lumbosacral spines. No acute compression fractures. IMPRESSION: /Subacute minimally displaced fractures of the left eighth and ninth ribs with adjacent pleural fluid (likely blood) and adjacent compressive atelectasis. No hollow or solid visceral organ injury. Reviewed, dictated and finalized at location A.
--- OUTSIDE RECORDS SUMMARY | 2024-10-18 17:57 | XMS_ITS | Clinical Summary ---
Author Organization [facility] Address [address], [address] [address] Phone Care Team Providers Care Auto Damage Trainee Name Role Phone Guy Madison MD Primary Care Provider [phone] Medications polyethylene glycol (MIRALAX) Powder Mix the entire bottle with 64 oz of a clear liquid. Use as directed by the office for colonoscopy prep. 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 Gender Identity Not on file Sexual Orientation Not on file Plan of Treatment Health Maintenance Due Date Last Done Comments Hepatitis C Virus (HCV) Screening 1960 TdaP Immunization 1960 Cologuard 08/27/2003 Immunochemical Fecal Occult Blood 08/27/2003 Pneumococcal Immunization (5 0+ years) (1 of 1 - PCV) 2008 Zoster Immunization (1 of 2) 2008 Colonoscopy 08/04/2022 08/04/2012 Colorectal Cancer Screening 08/04/2022 SARS-COV-2 Immunization (1 - 2023-25 season) 2023 Influenza Immunization (#1) 2024 Respiratory Syncytial Virus (RSV) Immunization (Adult) (1 - 1-dose 75+ series) 2033 Hepatitis B Immunization Aged Out No longer eligible based on patient's age to complete this topic Human Papillomavirus (HPV) Immunization Aged Out No longer eligible b ased on patient's age to complete this topic [...] Recently Relevant to Health Maintenance Insurance MEDICAID [facility] PL[facility] Care Teams Auto Damage Trainee Relationship Specialty Start Date End Date Guy Madison MD [address] [facility] [address] [place] [id number] PCP - General Internal Medicine 05/13/16
[2024-10-18 18:22] VITALS: BP 114/74; PULSE 97; RESP 16; TEMP 36.3; O2SAT 99
[2024-10-18 21:12] VITALS: BP 120/82; PULSE 92; RESP 17; O2SAT 97
--- OUTSIDE RECORDS SUMMARY | 2024-10-18 21:33 | XMS_ITS | Continuity of Care Document ---
Author Name [facility] Organization [facility] Care Team Providers Care Foundation Stage Teacher Name Role Phone [facility] Unavailable Unavailable Immunizations Combined list of available immunizations from the Department of Defense and Veterans Affairs facilities. Immunization Series Date Given Administered By Site Reaction Lot Number CVX Code Drug Guest Relations Officer Status Comments Source COVID-19 (misterbnb), MRNA, LNP-S, PF, 30 MCG/0.3 ML DOSE, RUBY-SUCROSE (AGES 12+ YEARS) 3 2021 217 complet ed PFR; [id number]; 2 [facility] COVID-19 (misterbnb), MRNA, LNP-S, PF, 30 MCG/0.3 ML DOSE 2 2020 208 complet ed PFR; [id number]; 1 [facility] COVID-19 (misterbnb), MRNA, LNP-S, PF, 30 MCG/0.3 ML DOSE 1 2020 208 complet ed PFR; [id number]; 1 [facility]
--- OUTSIDE RECORDS SUMMARY | 2024-10-18 21:33 | XMS_ITS | Clinical Summary ---
Author Organization [facility] Address [address], [address] [address] Phone Care Team Providers Care Material Movers Name Role Phone Guy Madison MD Primary Care Provider [phone] Medications polyethylene glycol (MIRALAX) Powder Mix the entire bottle with 64 oz of a clear liquid. Use as directed by the office for colonoscopy prep. 

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
[2024-10-18] MEDS: HYDROmorphone HCL INJ (*CRX) 2 MG/ML VIAL 1 MG IV PUSH (22:33)
[2024-10-18 22:35] VITALS: BP 95/77; PULSE 73; RESP 20; O2SAT 92
[2024-10-18 22:42] LABS: Hematocrit 37.6 % (42.0-52.0); Hemoglobin 12.9 g/dL (14.0-18.0); Immature Granulocyte Percent A 0.3 % (0-0.5); Lymphocytes Absolute Auto 3.73 K/mm3 (0.9-3.2); Mean Corpuscular HGB Conc 34.3 g/dl (32-36); Mean Corpuscular Hemoglobin 31.7 pg (26-34); Mean Corpuscular Volume 92.4 fl (80-100); Nucleated Red Blood Cells Absolute Auto 0.000 K/mm3 (0.0-0.012); Nucleated Red Blood Cells Perc 0.0 % (0.0-0.2); Platelet Count Result 229 k/mm3 (150-375); Red Blood Count 4.07 M/mm3 (4.6-6.20); White Blood Count 12.4 K/mm3 (4.5-10.0)
[2024-10-18 22:54] LABS: Alanine Aminotransferase 24 U/L (6-50); Albumin Level 4.0 g/dL (3.5-5.1); Alkaline Phosphatase 62 U/L (38-126); Anion Gap 8 mmol/L (4-12); Aspartate Amino Transferase 31 U/L (17-59); Bilirubin,Total 0.8 mg/dL (0.2-1.3); Blood Urea Nitrogen 21 mg/dL (9-20); Calcium 9.0 mg/dL (8.4-10.2); Carbon Dioxide 28 mmol/L (22-30); Chloride 102 mmol/L (98-107); Creatine Kinase 41 U/L (55-170); Estimated CRCL calculation 76 ml/min; Estimated Glomerular Filt Rate > 60; Glucose 119 mg/dL (65-110); INR 1.1; Magnesium 1.8 mg/dL (1.6-2.3); Potassium 4.0 mmol/L (3.4-5.0); Prothrombin Time 14.0 Seconds (11.1-14.7); Sodium 138 mmol/L (137-145); Total Protein 7.4 g/dL (6.3-8.2)
[2024-10-18 22:55] LABS: Partial Thromboplastin Time 26.9 Seconds (22.3-36.8)
[2024-10-18] MEDS: SODIUM CHLORIDE 0.9% IV 1,000 ML 999 ML IV CONT (23:40)
[2024-10-19 00:16] LABS: Add Urine Microscopic? NO; Appearance Urine Clear (Clear); Glucose Urine UA Negative (Negative); Leukocyte Esterase Ur Negative LEU/UL (Negative); Nitrate Urine Negative (Negative); Specific Grav Ur 1.041 (1.001-1.035)
[2024-10-19 00:45] VITALS: BP 107/74; PULSE 68; RESP 20; O2SAT 100
[2024-10-19 00:52] LABS: Cannabinoid Screen Urine Positive (Negative)
--- NOTE | 2024-10-19 01:39 | PC.NURSE ---
Pt left his imaging disc in pt room after being discharged. Pt was called to be informed but pt did not respond at this time. Pt imaging disc was placed with the rest of his chart and stickers.
== END 2024-10-19 01:37 | disposition home or self-care (01) ==
PROVIDERS: Emergency Provider Student in an Organized Health Care Education/Training Program; PCP Family Medicine
DX: S00.03XA Contusion of scalp, initial encounter (principal); S30.0XXA Contusion of lower back and pelvis, initial encounter; S22.42XA Multiple fractures of ribs, left side, initial encounter for closed fracture; S27.1XXA Traumatic hemothorax, initial encounter; S42.292A Other displaced fracture of upper end of left humerus, initial encounter for closed fracture; M19.041 Primary osteoarthritis, right hand; M19.031 Primary osteoarthritis, right wrist; D64.9 Anemia, unspecified; D72.829 Elevated white blood cell count, unspecified; F12.90 Cannabis use, unspecified, uncomplicated; E78.5 Hyperlipidemia, unspecified; N40.0 Benign prostatic hyperplasia without lower urinary tract symptoms; Z87.891 Personal history of nicotine dependence; M18.9 Osteoarthritis of first carpometacarpal joint, unspecified; M19.012 Primary osteoarthritis, left shoulder; I67.82 Cerebral ischemia; Z79.899 Other long term (current) drug therapy; W10.9XXA Fall (on) (from) unspecified stairs and steps, initial encounter
CPT/HCPCS: 36415; 70450; 70486; 71260; 72125; 73030; 73110; 73120; 74177; 80053; 80307; 81003; 82077; 82550; 83735; 85025; 85610; 85730; 86850; 86900; 86901; 96361; 96374; 99284; J1171; J7030; Q9967

== ENCOUNTER 2024-12-14 13:52 | Outpatient (CLI) | payer MEDICARE, SELFPAY ==
--- NOTE | ~2024-12-14 | XR_ITS ---
XR_[id number]_CR Indication: M54.2 - Cervicalgia, FELL DOWN STEPS 1 MONTH AGO Comparison: None Findings: Grade 1 anterolisthesis of C2 on C3, grade 1 retrolisthesis C3 on C4, no fracture identified. Moderate to severe loss of disc height throughout most marked at C3-4 and C4-5. Soft tissues unremarkable Impression: No acute abnormality. Reviewed, dictated and finalized at location P. Impression: No acute abnormality.
--- NOTE | ~2024-12-14 | XR_ITS ---
EXAMINATION: XR_RIBSBI_CR, 12/14/2024 14:10 CDT HISTORY: R07.81 - Pleurodynia, FELL DOWN STEPS 1 MONTH AGO, FOLLOW UP COMPARISON: No comparisons available. Findings: No acute fracture or malalignment. No significant degenerative changes. Soft tissues unremarkable. Impression: No acute fracture or malalignment. Reviewed, dictated and finalized at location P. Impression: No acute fracture or malalignment.
--- OUTSIDE RECORDS SUMMARY | 2024-12-14 13:55 | XMS_ITS | Encounter Summary ---
Author Organization [facility] Address [address] [place] [address] Phone Care Team Providers Care Compensation Analyst Name Role Phone Ramon Guardado MD Primary Care Provider [phone] Encounter Details Date Type Department Care Team [...] on file Legal Sex Male 1:46 AM [employer]SE [employer] Gender Identity Not on file Sexual Orientation [...] on filedocumented in this encounter Care Teams Compensation Analyst Relationship Specialty Start Date End Date Ramon Guardado MD PCP - General Family Practice 04/14/23 documented as of this encounter
--- OUTSIDE RECORDS SUMMARY | 2024-12-14 13:55 | XMS_ITS | Clinical Summary ---
Author Organization [facility] Address [address], [address] [address] Phone Care Team Providers Care Access Database Developer Name Role Phone Guy Madison MD Primary Care Provider [phone] Medications polyethylene glycol (MIRALAX) Powder Mix the entire bottle with 64 oz of a clear liquid. Use as directed by the office for colonoscopy prep. 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 Gender Identity Not on file Sexual Orientation Not on file Plan of Treatment Health Maintenance Due Date Last Done Comments Hepatitis C Virus (HCV) Screening 1960 TdaP Immunization 1960 Cologuard 08/27/2003 Immunochemical Fecal Occult Blood 08/27/2003 Pneumococcal Immunization (5 0+ years) (1 of 1 - PCV) 2008 Zoster Immunization (1 of 2) 2008 Colonoscopy 08/04/2022 08/04/2012 Colorectal Cancer Screening 08/04/2022 Influenza Immunization (#1) 2024 SARS-COV-2 Immunization ( - season) 2024 Respiratory Syncytial Virus (RSV) Immunization (Adult) [...] Recently Relevant to Health Maintenance Insurance MEDICAID [facility] PLAN Care Teams Access Database Developer Relationship Specialty Start Date End Date Guy Madison MD [address] [facility] [address] [place] [id number] PCP - General Internal Medicine 05/13/16
--- OUTSIDE RECORDS SUMMARY | 2024-12-14 13:55 | XMS_ITS | Encounter Summary ---
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
--- OUTSIDE RECORDS SUMMARY | 2024-12-14 13:55 | XMS_ITS | Clinical Summary ---
Author Organization [facility] Address [address] [place] [address] Care Team Providers Care Radio Station Engineer Name Role Phone Ramon Guardado MD Primary Care Provider [phone] Allergies No known active allergies Medications gabapentin [...] 024 Assessment & Plan (04/19/2024 8:48 AM RN MIDWIFE): Mr. Albarran returns for Chronic Hepatitis C [...] show unknown. I will obtain report from [facility] in [place]. #Labs: Patient due for lab work today: [...] 05/16/2023 Assessment & Plan (05/16/2023 11:37 AM RN MIDWIFE): - monitor - R/T hx ETOH abuse Alcohol abuse 05/11/2023 Assessment & Plan (05/11/2023 12:05 PM RN MIDWIFE): admits to 6-12 beers + some hard [...] #Variceal Screening: Last colonoscopy was performed at [facility] 2-3 years ago per patient. Results show unknown. Fibroscan 07/11/2023: kPa 32.1, CAP 267 suggestive of normal moderate steatosis, very high fibrosis. Baveno Criteria, kPa > 20 or Platelet count > 150K , recommend EGD for variceal surveillance. He is to get EGD/Colonoscopy scheduled at [facility]. We will obtain the reports. #Labs: [...] #Variceal Screening: Last colonoscopy was performed at [facility] 2-3 years ago per patient. Results [...] months. Assessment & Plan (05/13/2023 10:28 AM RN MIDWIFE): - Monitor AST/ALT - has seen someone in past at [facility] and has been told that he has cirrhosis - admits to 6-12 beers + some hard liquor a day - denies hx of DT's symptoms - has been at OSH for several days so should be outside the DT window - cont to monitor - consult hepatology for DC recs Empyema lung 05/10/2023 Empyema 05/10/2023 Assessment & Plan (05/17/2023 8:16 AM RN MIDWIFE): Patient s/p thoracentesis 05/09 at OSH - Stop Vanc, cefe - start Augmentin - CBC pending - Pt recs for home with family Inguinal hernia 05/17/2011 Resolved Problems Problem Noted Date Diagnosed Date Resolved Date Hyperkalemia 05/16/2023 05/17/2023 Assessment & Plan (05/16/2023 11:36 AM RN MIDWIFE): - recheck labs today - monitor Hyponatremia 05/16/2023 05/17/2023 Assessment & Plan (05/16/2023 11:37 AM RN MIDWIFE): - mild - monitor Medical History Medical History Date Comments Cirrhosis [...] on file Legal Sex Male 1:46 AM RN MIDWIFE Gender Identity Not on file Sexual Orientation Not on file Obstetrics History Last Filed Vital Signs Vital Sign Reading Time Taken Comments Blood Pressure 117/77 04/19/2024 8:13 AM RN MIDWIFE Pulse 83 04/19/2024 8:13 AM RN MIDWIFE Temperature 36.4 C (97.6 F) 04/19/2024 8:13 AM RN MIDWIFE Respiratory Rate 12 05/31/2023 9:54 AM CDT Oxygen Saturation 96% 04/19/2024 8:13 AM RN MIDWIFE Inhaled Oxygen Concentration - - Weight 93.3 kg (205 lb 9.6 oz) 04/19/2024 8:13 A M RN MIDWIFE Height 177.8 cm (5' 10) 04/19/2024 8:13 AM RN MIDWIFE Body Mass Index 29.5 04/19/2024 8:13 AM RN MIDWIFE Plan of Treatment Health Maintenance Due Date Last Done Comments Colon Cancer Screening-Colonoscopy 1958 Depression Screening 1958 Prostate Cancer Screening-PSA 1958 Pneumococcal vaccine 65+ (1 of 2 - PCV) 1977 Zoster Vaccine (1 of 2) 2008 Well Visit 65+ 08/27/2023 Fall Risk Assessment 05/17/2024 05/18/2023 Influenza Vaccine (#1) 2024 DTaP/Tdap/Td Vaccine (3 - Td or Tdap) 11/13/2033 11/14/2023, 06/06/2022 Hepatitis B Screening Completed 07/11/2023 Abdominal Aortic Aneurysm (A AA) Screen Completed 11/13/2023, 06/06/2022 Hepatitis C Screening Completed 04/19/2024 , 09/22/2023, 09/22/2023, Additional history exists Procedures Procedure Name Priority Date/Time Associated Diagnosis Comments HEPATITIS C RNA, QUANTITATIVE, PCR Routine 04/19/2024 9:41 AM RN MIDWIFE Hepatic cirrhosis, unspecified hepatic cirrhosis type, unspecified whether ascites present (HCC) from Last 3 Months or Most Recently Relevant to Health Maintenance Results * Hepatitis C (HCV) RNA PCR, quantitative Blood (04/19/2024 9:41 AM RN MIDWIFE) Pathologist [facility] HCV RNA result Not Detected [facility] Comment: The quantifiable range of this assay is 15 IU/mL to 100,000,000 IU/mL (1.18 log IU/mL to 8.00 log IU/mL). Testing was performed by the [facility]NE[facility] 6800 HCV Test ([employer] Testing performed at [facility] Current Interpretive Data was last revised on 2020 Blood 04/19/2024 9:41 AM RN MIDWIFE 04/19/2024 1:25 PM RN MIDWIFE Eneida Hilario NP LAB MICROBIOLOGY - GENERAL ORDERABLES Final Result [facility] AREVALO [facility] Department [place] [address] [facility] from Last 3 Months or Most Recently Relevant to Health Maintenance Insurance IDPA MEDICARE COMMERCIAL GENERIC HUMANA CHOICE MEDICARE PPO HUMANA CHOICE MEDICARE PPO Advance Directives For more information, please contact: [phone] * Full Code (Latest Code Status on File) Date Activated Date Inactivated Comments 05/10/2023 10:38 PM 05/18/2023 5:43 PM Care Teams Radio Station Engineer Relationship Specialty Start Date End Date Ramon Guardado MD PCP - General Family Practice 04/14/23
== END 2024-12-14 13:53 | disposition home or self-care (01) ==
PROVIDERS: PCP Family Medicine; Visit Provider Family Medicine
DX: R07.81 Pleurodynia (principal); M54.2 Cervicalgia
CPT/HCPCS: 71110; 72040

== ENCOUNTER 2025-01-15 11:06 | Outpatient (CLI) | payer MEDICARE, SELFPAY ==
--- NOTE | ~2025-01-15 | US_ITS ---
EXAMINATION: US aorta, 01/15/2025 11:17 HOMEOWNER ASSOCIATION MANAGER HISTORY: I71.9 - Aortic aneurysm of unspecified site, without rupture Comparison: None Technique: Mcclendon-scale and color Doppler images were obtained. Findings: There is no aneurysm identified, the proximal common iliac vessels are unremarkable as well. IMPRESSION: No aneurysm identified Reviewed, dictated and finalized at location P. OWNER ASSOCIATION MANAGER IMPRESSION: No aneurysm identified
--- OUTSIDE RECORDS SUMMARY | 2025-01-15 13:23 | XMS_ITS | Encounter Summary ---
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
--- OUTSIDE RECORDS SUMMARY | 2025-01-15 13:23 | XMS_ITS | Clinical Summary ---
Author Organization [facility] Address [address] [address] Phone Care Team Providers Care Aircraft Restorer Name Role Phone Guy Madison MD Primary Care Provider [phone] Medications polyethylene glycol (MIRALAX) Powder Mix the entire bottle with 64 oz of a clear liquid. Use as directed by the office for colonoscopy prep. 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
--- OUTSIDE RECORDS SUMMARY | 2025-01-15 13:23 | XMS_ITS | Encounter Summary ---
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
--- OUTSIDE RECORDS SUMMARY | 2025-01-15 13:23 | XMS_ITS | Clinical Summary ---
Author Organization [facility] Address [address] [place] [address] Care Team Providers Care Seamstress Fitter Name Role Phone Ramon Guardado MD Primary Care Provider [phone] Allergies No known active allergies Medications gabapentin [...] 024 Assessment & Plan (04/19/2024 8:48 AM CHIP MIXING MACHINE OPERATOR): Mr. Albarran returns for Chronic Hepatitis C [...] show unknown. I will obtain report from [facility] in [place]. #Labs: Patient due for lab work today: [...] 05/16/2023 Assessment & Plan (05/16/2023 11:37 AM CHIP MIXING MACHINE OPERATOR): - monitor - R/T hx ETOH abuse Alcohol abuse 05/11/2023 Assessment & Plan (05/11/2023 12:05 PM CHIP MIXING MACHINE OPERATOR): admits to 6-12 beers + some hard [...] #Variceal Screening: Last colonoscopy was performed at [facility] 2-3 years ago per patient. Results show unknown. Fibroscan 07/11/2023: kPa 32.1, CAP 267 suggestive of normal moderate steatosis, very high fibrosis. Baveno Criteria, kPa > 20 or Platelet count > 150K , recommend EGD for variceal surveillance. He is to get EGD/Colonoscopy scheduled at [facility]. We will obtain the reports. #Labs: Last [...] #Variceal Screening: Last colonoscopy was performed at [facility] 2-3 years ago per patient. Results show [...] months. Assessment & Plan (05/13/2023 10:28 AM CHIP MIXING MACHINE OPERATOR): - Monitor AST/ALT - has seen someone [...] 05/10/2023 Assessment & Plan (05/17/2023 8:16 AM CHIP MIXING MACHINE OPERATOR): Patient s/p thoracentesis 05/09 at OSH - Stop Vanc, cefe - start Augmentin - CBC pending - Pt recs for home with family Inguinal hernia 05/17/2011 Resolved Problems Problem Noted Date Diagnosed Date Resolved Date Hyperkalemia 05/16/2023 05/17/2023 Assessment & Plan (05/16/2023 11:36 AM CHIP MIXING MACHINE OPERATOR): - recheck labs today - monitor Hyponatremia 05/16/2023 05/17/2023 Assessment & Plan (05/16/2023 11:37 AM CHIP MIXING MACHINE OPERATOR): - mild - monitor Medical History Medical [...] on file Legal Sex Male 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 Gender Identity Not on file Sexual Orientation Not on file Last Filed Vital Signs Vital Sign Reading Time Taken Comments Blood Pressure 117/77 04/19/2024 8:13 AM CHIP MIXING MACHINE OPERATOR Pulse 83 04/19/2024 8:13 AM CHIP MIXING MACHINE OPERATOR Temperature 36.4 C (97.6 F) 04/19/2024 8:13 AM CHIP MIXING MACHINE OPERATOR Respiratory Rate 12 05/31/2023 9:54 AM CDT Oxygen Saturation 96% 04/19/2024 8:13 AM CHIP MIXING MACHINE OPERATOR Inhaled Oxygen Concentration - - Weight 93.3 kg (205 lb 9.6 oz) 04/19/2024 8:13 A M CHIP MIXING MACHINE OPERATOR Height 177.8 cm (5' 10) 04/19/2024 8:13 AM CHIP MIXING MACHINE OPERATOR Body Mass Index 29.5 04/19/2024 8:13 AM CHIP MIXING MACHINE OPERATOR Plan of Treatment Health Maintenance Due Date Last Done Comments Colon Cancer Screening-Colonoscopy 1958 Depression Screening 1958 Prostate Cancer Screening-PSA 1958 Hepatitis B Screening 1976 Pneumococcal vaccine 65+ (1 of 2 - PCV) 1977 Zoster Vaccine (1 of 2) 2008 Well Visit 65+ 08/27/2023 Fall Risk Assessment 05/17/2024 05/18/2023 Influenza Vaccine (#1) 2024 DTaP/Tdap/Td Vaccine (3 - Td or Tdap) 11/13/2033 11/14/2023, 06/06/2022 Abdominal Aortic Aneurysm (A AA) Screen Completed 11/13/2023, 06/06/2022 Hepatitis C Screening Completed 04/19/2024 , 09/22/2023, 09/22/2023, Additional history exists Procedures Procedure Name Priority Date/Time Associated Diagnosis Comments HEPATITIS C RNA, QUANTITATIVE, PCR Routine 04/19/2024 9:41 AM CHIP MIXING MACHINE OPERATOR Hepatic cirrhosis, unspecified hepatic cirrhosis type, unspecified whether ascites present (HCC) from Last 3 Months or Most Recently Relevant to Health Maintenance Results * Hepatitis C (HCV) RNA PCR, quantitative Blood (04/19/2024 9:41 AM CHIP MIXING MACHINE OPERATOR) Pathologist [facility] HCV RNA result Not Detected [facility] Comment: The quantifiable range of this assay is 15 IU/mL to 100,000,000 IU/mL (1.18 log IU/mL to 8.00 log IU/mL). Testing was performed by the [facility]NE[facility] 6800 HCV Test ([employer] Testing performed at [facility] Current Interpretive Data was last revised on 2020 Blood 04/19/2024 9:41 AM CHIP MIXING MACHINE OPERATOR 04/19/2024 1:25 PM CHIP MIXING MACHINE OPERATOR us Eneida Hilario NP LAB MICROBIOLOGY - GENERAL ORDERABLES Final Result [facility] TAVERAS [facility] Department [place] [address] [facility] from Last 3 Months or Most Recently Relevant to Health Maintenance Insurance IDPA MEDICARE COMMERCIAL GENERIC HUMANA CHOICE MEDICARE PPO HUMANA CHOICE MEDICARE PPO Advance Directives For more information, please contact: [phone] * Full Code (Latest Code Status on File) Date Activated Date Inactivated Comments 05/10/2023 10:38 PM 05/18/2023 5:43 PM Care Teams Seamstress Fitter Relationship Specialty Start Date End Date Ramon Guardado MD PCP - General Family Practice 04/14/23
== END 2025-01-15 11:07 | disposition home or self-care (01) ==
PROVIDERS: PCP Family Medicine; Visit Provider Family Medicine
DX: I71.9 Aortic aneurysm of unspecified site, without rupture (principal)
CPT/HCPCS: 76775